=== PATIENT | male | born 1945 | race Caucasian/White ===

== ENCOUNTER 2023-10-18 15:46 | Inpatient (IN) | payer MEDICARE, OTHER, SELFPAY ==
[2023-10-18] VITALS (13 sets, daily range): BP systolic 20–143; BP diastolic 51–76; BMI 32.9
--- NOTE | 2023-10-18 11:41 | ED.GENMED ---
History of Present Illness
General
Chief Complaint: Abdominal Pain
Time Seen by Provider: 10/18/23 11:03
Travel History
Have you had any contact with someone who has COVID-19?: No
Do you have any symptoms of coronavirus? Fever > 100 degrees, chills, cough, shortness of breath, sore throat, loss of taste or smell, muscle aches, or headache?: No
History of Present Illness
History of Present Illness:
78-year-old male with history of CML and afj-dzawpzt-vaogikecp diabetes presents to the emergency department for evaluation of right lower quadrant pain developing last night and worsening today. Did have a fever of 100.3 at home according to his
. He reports pain is quite minimal while at rest. Pain does not radiate to the back, states it is not similar to past kidney stones. Denies any nausea or vomiting. No prior abdominal surgeries
Past History
Past History
ED Past Medical History: NIDDM
ED Past Surgical History: None
Social History
Tobacco: Non-smoker
Alcohol: Occasional
Drug: None
Personal:
Living: with family
Review of Systems
Review of Systems
Allergies reviewed?: Yes
All Other Systems: ROS reviewed and negative except as documented in HPI and ROS
Phy Exam
Physical Exam
Physical Exam:
GEN: Well appearing, NAD, WDWN
HEENT: Oral mucosa moist, no scleral icterus
Cardiac: Regular rate
Lung: No respiratory distress, no tachypnea
Abdomen: Obesity limits exam however patient with remarkable tenderness to the right lower quadrant, abdomen is grossly soft and benign otherwise, no peritoneal signs
MSK: No gross deformity or injuries
Skin: Good color, no pallor or jaundice, no rashes
Neuro: AO x3, moves all extremities freely
Psych: Calm, cooperative
Course
Orders/Labs/Results
Orders:
Orders
10/18/23 11:20
CT Abd/Pel (IV only)-DH only Urgent
Comment:
Reason For Exam: RLQ pain
10/18/23 11:52
Complete Blood Count/With Diff Urgent
Comprehensive Metabolic Panel Urgent
Urinalysis Reflex To Culture Urgent
Date Specimen was Collected: 10/18/23
Time Specimen was Collected: 11:40
Urine Microscopic Reflex Cult Urgent
10/18/23 13:58
Piperacillin/Tazo 3.375 Gram [Zosyn] 3.375 gram in 50 ml IV NOW
10/18/23 14:01
0.9% Sodium Chloride 1000 ml [Nss] 1,000 ml IV BOLUS
10/18/23 15:36
Admit/Transfer Patient As Directed
Co-Sign Provider:
Level of Care: Inpatient admission
Assign to:: Medical/Surgical
Physician / Group: stephani lopez
Diagnosis: appendiciis
Reason for Hospitalization: appendicitis
Expected length of stay greater than two midnights?: Yes
ELOS- Estimated Length of Stay in days: 3
I certify the patient meets the requirements for IP care: Yes
10/18/23 15:38
Code Status As Directed
Resuscitation Status: Full Code
Abnormal Lab Results
10/18/23
11:52
WBC 3.5 L 10^3/uL
(4.8-10.8)
RBC 4.34 L 10^6/uL
(4.70-6.10)
Hgb 12.7 L g/dL
(13.0-18.0)
Hct 36.9 L %
(39.0-52.0)
RDW 17.1 H %
(11.5-14.5)
Plt Count 102 L 10^3/uL
(130-400)
Absolute Lymphs (auto) 0.3 L 10^3/uL
(1.2-3.4)
Neutrophils % 86.4 H %
(42.2-75.2)
Lymphocytes % 7.1 L %
(20.5-51.1)
Sodium 133 L mmol/L
(135-145)
Glucose 287 H mg/dl
(70-99)
Total Bilirubin 1.8 H mg/dl
(0.2-1.3)
Urine Ketones 2+ A
(Negative)
Ur Occult Blood Reflex 1+ A
(Negative)
Urine RBC 3-6 A /HPF
(0-2)
Urine Bacteria (Reflex) Few A
(Negative)
Urine Glucose 3+ A
(Negative)
10/18/23 11:52
10/18/23 11:52
Vital Signs
Initial and Last Documented VS:
Initial Vital Signs
Temp Pulse Resp BP Pulse Ox
99.7 F 94 16 137/76 96
10/18/23 10:32 10/18/23 10:32 10/18/23 10:32 10/18/23 10:32 10/18/23 10:32
Last Documented Vital Signs
Temp Pulse Resp BP Pulse Ox
100.9 F H 85 18 119/56 95
10/18/23 12:06 10/18/23 14:11 10/18/23 14:11 10/18/23 15:00 10/18/23 15:15
MDM/Problems Addressed
MDM/Problems Addressed:
Imaging reveals appendicitis, general surgery consulted, requesting hospitalist admission due to underlying medical conditions. Will be taken for operative intervention today
*Critical Care Note
Total Time (30-74mins, 75-104mins- exclusive of procedures): 30 minutes
comment:
Critical care time: 30 minutes
Critical care time was exclusive of: Separately billable procedures, treating other patients, and teaching time
Critical care was necessary to treat or prevent imminent or life-threatening deterioration of the following conditions: Acute appendicitis requiring urgent operative intervention
Critical care time spent personally by me on the following activities:
[x] Review of old charts
[x] Obtaining history from patient or surrogate
[x] Ordering and review of the laboratory studies
[x] Ordering and review of radiographic studies
[x] Ordering and performing treatments and interventions
[x] Patient patient's response to treatment
[x] Development of treatment plan with patient or surrogate
ED Attending Note
-
Portions of this chart may have been created with voice recognition software.� Occasional wrong word or��sound alike� substitutions may have occurred due to the inherent limitations of voice recognition software.
Discharge Plan
Departure
Patient Disposition: Admit
Date of Disposition: 10/18/23
Time of Disposition: 14:08
Presentation/result/management discussed w/ accepting MD/DO: Hospitalist
Discharge Problem:
Acute appendicitis
Interventions
Interventions:
*Risk Screen - Suicide Last Done: 10/18/23 10:30
*General Assessment Last Done: 10/18/23 10:30
*Neglect/Abuse Screening Last Done: 10/18/23 10:30
ED- Fall Risk Assessment Last Done: 10/18/23 12:06
ED-Qzewqt-Nttxzsfhvg Assessment Last Done: 10/18/23 12:06
[2023-10-18 12:06] LABS: Urine Albumin Trace (Neg - Trace); Urine Bilirubin Negative (Negative); Urine Character Clear (Clear); Urine Color Yellow; Urine Glucose 3+ (Negative); Urine Ketone 2+ (Negative); Urine Leukocyte Negative (Negative); Urine Nitrite Negative (Negative); Urine Occult Blood 1+ (Negative); Urine Urobilinogen Negative (Neg - 1+)
[2023-10-18 12:07] LABS: % Basophils 0.8 % (0-2); % Immature Granulocytes 0.3 % (0-0.5); % Lymphocytes 7.1 % (20.5-51.1); % Monocytes 5.4 % (1.7-9.3); % Neutrophils 86.4 % (42.2-75.2); Absolute Lymphocytes 0.3 10^3/uL (1.2-3.4); Absolute Monocytes 0.2 10^3/uL (0.1-0.6); Absolute Neutrophils 3.1 10^3/uL (1.4-6.5); Hematocrit 36.9 % (39.0-52.0); Hemoglobin 12.7 g/dL (13.0-18.0); Mean Corp Hgb Conc. 34.4 g/dL (33.0-37.0); Mean Corpuscular Hgb 29.3 pg (27.0-31.0); Mean Platelet Volume 9.9 fL (7.4-10.4); Nucleated Red Blood Cells % 0 % (-); Platelet Count 102 10^3/uL (130-400); Red Blood Cell Count 4.34 10^6/uL (4.70-6.10); Red Cell Dist. Width 17.1 % (11.5-14.5); White Blood Cell Count 3.5 10^3/uL (4.8-10.8)
[2023-10-18 12:19] LABS: ALT (SGPT) 33 U/L (0-50); AST (SGOT) 31 U/L (17-59); Albumin 4.2 g/dl (3.5-5.0); Alkaline Phosphatase 84 U/L (38-126); Blood Urea Nitrogen 20 mg/dl (9-20); Calcium 9.1 mg/dl (8.4-10.2); Carbon Dioxide 24 mmol/L (22-30); Chloride 101 mmol/L (98-107); Estimated Creatinine Clearance 65 ml/min; Glucose 287 mg/dl (70-99); Potassium 4.6 mmol/L (3.5-5.1); Sodium 133 mmol/L (135-145); Total Bilirubin 1.8 mg/dl (0.2-1.3); Total Protein 6.7 g/dl (6.3-8.2); eGFR > 60.00
[2023-10-18 12:20] LABS: Urine Bacteria Few (Negative); Urine Mucus Few; Urine White Cell 0-2 /HPF (0-5)
[2023-10-18] MEDS: ZOSYN 50 IV ×2 (14:03→20:15)
[2023-10-18] MEDS: NSS 1000 IV ×2 (14:04→19:03)
--- NOTE | 2023-10-18 15:46 | HPS.HSE ---
Family Physician
-
Family Physician: Lucia Baptiste
Chief Complaint
-
abd pain
History of Present Illness
78 y/o M hx of CML, DM presents to ER with RLQ pain. Pain began yesterday and initially was RLQ with no radiation, 7/10, sharp pain. Associated symptoms include belching, dry heaves with nausea but no vomiting. Patient felt feverish, no chills. No
CP or SOB. Patient thought this was related to renal stones and took a Percocet at 1AM. He was able to sleep but woke up this morning with general malaise. He called PCP who referred him to ER.
In ER, found to have acute appendicitis on imaging and admitted for OR today. Zosyn and IVF were given.
Medical History
Past Medical History
Past Medical History: Reports Other (atypical CML, DM, MICKEY on CPAP, hx of renal stones)
Past Surgical History: Reports Urological (vasectomy, hx of lithotripsy)
Social History
Tobacco: Non-smoker
Alcohol: Occasional
Drug: None
Personal:
Living: With Family
Employment: Employed
Family History
Family History: Not pertinent
Allergies / Home Medications
Allergies reflects when Allergies were last updated in [facility].
Home Medications with original date entered in [facility]
Allergy/Medication List:
Allergies
Allergy/AdvReac Type Severity Reaction Status Date / Time
Sshxntn-NUF-FhQ Reductase Allergy Unknown Verified 12/25/22 09:01
Inhibitor
[Qbrpaka-Qng-Ifl Reductase
Inhibitor]
Home Medications
metformin 1,000 mg tablet,extended release 24hr (osmotic) 1,000 mg PO BID 03/27/17
gilteritinib 40 mg tablet 120 mg PO QPM 12/22/22
glimepiride 2 mg tablet 1 mg PO DAILY 12/22/22
magnesium 250 mg tablet 500 mg PO HS 12/22/22
potassium citrate 10 mEq (1,080 mg) tablet,extended release 10 meq PO BID 10/18/23
Review of Systems
-
A 12 point ROS was completed and negative except as noted: Yes
Physical Exam
Vital Signs
Vital Signs
Temp Pulse Resp BP Pulse Ox
100.9 F H 85 18 119/56 94
10/18/23 12:06 10/18/23 14:11 10/18/23 14:11 10/18/23 15:00 10/18/23 15:00
Physical Exam
General: Well Developed, Well Nourished, Pain and Obese
HEENT: NormoCephalic and Anicteric
Respiratory: Clear; No Wheezes or Rales
Cardiac: S1/S2 and Regular Rhythm
GI: Tender (RLQ) and Distended (mildly)
Musculoskeletal: No Clubbing
Neuro: AO x 3
Hematologic/Lymphatic: No Lymphadenopathy
Psych: Calm
Laboratory Results
-
10/18/23 11:52
10/18/23 11:52
Laboratory Results
Total Bilirubin 1.8 mg/dl (0.2-1.3) H 10/18/23 11:52
AST 31 U/L (17-59) 10/18/23 11:52
ALT 33 U/L (0-50) 10/18/23 11:52
Alkaline Phosphatase 84 U/L (38-126) 10/18/23 11:52
Data Reviewed
-
CT Scan: Report Reviewed by me and Discussed with Patient
Lab Data: Labs Reviewed by me and Discussed with Patient
Impression/Plan
-
Assessment:
Early Sepsis POA (tachy, leukopenia, fever, appendicitis)
Acute appendicitis
- CT did not show abscess or free air
- IVF
- IV Zosyn
- GS consulted; OR today
Atypical CML
P. Vera
- follows with [facility]
- on Gilteritinib - hold at this time
- also on Vidaza outpatient
Type 2 DM
- hold PO agents Glimepiride and Metformin
- SSI
- A1c: pending
1.3 cm L adrenal adenoma
- OP F/u
MICKEY
- bring in home CPAP
obesity due to excess calories
DVT ppx: SCDs
Code: Full
--- NOTE | 2023-10-18 16:32 | CON.GS ---
Consultation
-
Date/Time Consultation Requested: 10/18/2023 3:00 PM
Date/Time Consultation Performed: 10/18/2023 3:30 PM
Requesting Provider: Emergency department
Performing Provider: Dr. Esquivel
Reason for Consultation: Acute appendicitis
Medical History
-
Chief Complaint: Right lower quadrant abdominal pain
History of Present Illness:
This is an 78-year-old male with a history of CML, diabetes who presents to the emergency department with 1 day of right lower quadrant pain. The patient endorses fever and chills but denies, Chest Pain, Shortness Of Breath, Nausea, Vomiting,
changes in urinary and bowel habits, unintentional weight loss, jaundice, icterus, acolic stools.
Past Medical History
Past Medical History: Reviewed & Noncontributory
Past Surgical History: None
Social History
Tobacco: Non-Smoker
Alcohol: None
Drug: None
Personal:
Family History
Family History: Reviewed & Not Pertinent
Allergies / Home Medications
Allergy/AdvReac Type Severity Reaction Status Date / Time
Imvuydg-JSQ-CcR Reductase Allergy Unknown Verified 12/25/22 09:01
Inhibitor
[Kmpbtac-Qsp-Eyk Reductase
Inhibitor]
�Medication �Instructions �Recorded �Confirmed �Type
metformin 1,000 mg tablet,extended 1,000 mg PO BID 03/27/17 10/18/23 History
release 24hr (osmotic)
gilteritinib 40 mg tablet 120 mg PO QPM 12/22/22 10/18/23 History
glimepiride 2 mg tablet 1 mg PO DAILY 12/22/22 10/18/23 History
magnesium 250 mg tablet 500 mg PO HS 12/22/22 10/18/23 History
potassium citrate 10 mEq (1,080 10 meq PO BID 10/18/23 10/18/23 History
mg) tablet,extended release
Review of Systems
-
All other systems: Negative unless noted
A 10 point review of systems was completed, and was negative except as per HPI.
Physical Exam
Vital Signs
Temp Pulse Resp BP Pulse Ox
100.9 F H 85 18 119/56 95
10/18/23 12:06 10/18/23 14:11 10/18/23 14:11 10/18/23 15:00 10/18/23 15:15
10/17/23 10/18/23 10/19/23
06:59 06:59 06:59
Actual Weight 103.9 kg
Body Mass Index (BMI) 32.9
Lab Results
10/18/23 11:52
10/18/23 11:52
WBC 3.5 10^3/uL (4.8-10.8) L 10/18/23 11:52
Hgb 12.7 g/dL (13.0-18.0) L 10/18/23 11:52
Hct 36.9 % (39.0-52.0) L 10/18/23 11:52
Plt Count 102 10^3/uL (130-400) L 10/18/23 11:52
Abs Immat Gran (auto) 0.0 10^3/uL (0-0.05) 10/18/23 11:52
Neutrophils % 86.4 % (42.2-75.2) H 10/18/23 11:52
Physical Exam
General: Well Developed
HEENT: Normocephalic
Respiratory: Clear and Non Labored Respirations
GI: Soft, Non Distended, Tender (Focally tender to palpation in the right lower quadrant.) and Obese
Data Reviewed
-
CT Scan: Image Personally Visualized and interpreted, Report Reviewed by me, Discussed with Physician and Discussed with Patient
Labs: Labs Reviewed by me and Discussed with Physician
Total Time Spent with Patient (in minutes): 60
Assessment / Plan
-
This is an 78-year-old male with history of CML, diabetes who presents with 1 day history of right lower quadrant pain. Exam, lab work, imaging all consistent with acute appendicitis and adjacent free fluid containing for at least localized
perforation.
Will plan for a laparoscopic appendectomy in the OR today.
N.p.o., IV fluids, IV Zosyn.
Admit hospitalist given multiple comorbidities, anticipate discharge home tomorrow pending clinical course.
--- NOTE | 2023-10-18 16:35 | W.SUR.PREOP ---
Pre-Operative Surgical Note
-
I have examined this patient prior to the performance of the scheduled procedure.
The patient's condition is unchanged from the time of the current History and
Physical and the patient is able to undergo the scheduled procedure.
--- NOTE | 2023-10-18 18:10 | W.IMMPOSTOP ---
Surgical Immed Post Op Note
-
Primary Surgeon: Aaron Esquivel MD
Assisting Surgeon: None
Pre-op Diagnosis: Acute appendicitis
Post-op Diagnosis: Same
Procedure Performed: Laparoscopic appendectomy
Anesthesia Type: General
Specimen / Cultures:
1. Right lower quadrant fluid for wound culture aerobic and anaerobic
2. Appendix
Estimated Blood Loss: 11 cc
Complications: None
Operative Findings: Small bowel plastered to the anterior abdominal wall in the right lower quadrant which was lysed sharply. Perforated retrocecal appendix with localized abscess - cultured. Appendix appeared perforated at the base of the cecum,
though unable to clearly identify tissues due to significant inflammation. The terminal ileum was densely adherent in this area. Appendiceal base sutured closed with 2-0 PDS, and covered with Omentum. A 19 Portuguese round Rob was placed in the
right paracolic gutter.
POST OP PLAN:
Imaging: None
Labs: Routine AM
Diet: Okay for clears, Anticipate ileus
Analgesia: Tylenol 650mg q6 Yelena, Ciara 5mg q6 PRN, Dilaudid 0.5mg q2h PRN
Neuro/vascular checks: q4h
AC/AP: Hold Therapeutic AC, Ok for DVT PPx
Activity: Ad Alicia
Wound/Incisions/Drains: Routine
Abx: Continue antibiotics x 4 days.
Dispo: RNF
[2023-10-18 18:25] LABS: Glucose - Point of Care 232 mg/dl (70-99)
[2023-10-18] MEDS: NOVOLOG vial 100 UNITS SC (18:27)
--- NOTE | 2023-10-18 19:44 | SUR.PHASEI ---
patient post op in pacu after appy - awake, alert and oriented, denies pain, vss, Glucose treated as ordered. on transfer to room small amount of bloody ooze around inocente drain in skin fold. - Nancy called with room number.
[2023-10-18] MEDS: NOVOLOG FLEXPEN-LOW RESISTANCE SC (20:05)
[2023-10-18 21:25] LABS: Glucose - Point of Care 272 mg/dl (70-99)
--- NOTE | 2023-10-18 22:25 | PTCARENOTE ---
1920 Pt admitted to unit, vs stable, [address] via NC, IVF infusing via Left F/A. Pt's mid pubic J-P drained 45cc sanguinous fluid, pt denies need for pain medication, pain is 3 abd site and tolerable per pt. Pt oriented to unit, diet clears,
tolerated 120cc ice water, denies n/v or abd discomfort.
[2023-10-18 22:40] LABS: Glucose - Point of Care 290 mg/dl (70-99)
--- NOTE | 2023-10-18 23:06 | PTCARENOTE ---
Pt 02 drops while sleeping (83), states ''I have sleep apnea but I don't always use my CPAP'', HOB elevated as pt sleeps flat at home, 02 applied, pt refusing to use CPAP Pt educated at length verbalizes understanding however continues to decline
use of CPAP. HOB elevated, [address] pulse ox 98%
--- NOTE | 2023-10-19 00:45 | PTCARENOTE ---
pt's noted with a RCW SQ unaccessed port .
[2023-10-19 01:28] VITALS: BMI 33.2
[2023-10-19] MEDS: ZOSYN 50 IV ×4 (02:11→19:54)
[2023-10-19 03:40] VITALS: BP 120/56
[2023-10-19 05:45] LABS: Glucose - Point of Care 266 mg/dl (70-99)
[2023-10-19 06:19] LABS: Hematocrit 38.3 % (39.0-52.0); Hemoglobin 12.3 g/dL (13.0-18.0); Mean Corp Hgb Conc. 32.1 g/dL (33.0-37.0); Mean Corpuscular Hgb 28.5 pg (27.0-31.0); Mean Corpuscular Volume 88.9 fL (80.0-94.0); Mean Platelet Volume 10.4 fL (7.4-10.4); Platelet Count 100 10^3/uL (130-400); Red Blood Cell Count 4.31 10^6/uL (4.70-6.10); Red Cell Dist. Width 17.1 % (11.5-14.5); White Blood Cell Count 4.1 10^3/uL (4.8-10.8)
[2023-10-19 06:42] LABS: Blood Urea Nitrogen 22 mg/dl (9-20); Calcium 8.5 mg/dl (8.4-10.2); Carbon Dioxide 27 mmol/L (22-30); Chloride 100 mmol/L (98-107); Estimated Creatinine Clearance 71 ml/min; Glucose 272 mg/dl (70-99); Potassium 4.4 mmol/L (3.5-5.1); Sodium 137 mmol/L (135-145); eGFR > 60.00
[2023-10-19] MEDS: NSS 1000 IV ×2 (07:14→20:01)
[2023-10-19 07:37] VITALS: BP 123/56
[2023-10-19 08:19] LABS: Glycohemoglobin (HgbA1c) 8.2 % (4.0-5.6)
[2023-10-19] MEDS: NOVOLOG FLEXPEN-LOW RESISTANCE 3 UNITS SC ×2 (10:20→12:44)
--- NOTE | 2023-10-19 10:57 | W.PN.GS2 ---
Addendum entered and electronically signed by BETTE Antunez 10/20/23 12:35:
Correction to below: patient is POD #1 lap appendectomy not chase
Addendum entered and electronically signed by Fadi Romero MD 10/19/23 12:34:
I saw and examined the patient.
The Automotive Light Mechanic's note was reviewed and I agree with the note.
Comment: Improving. Exam approp, drain ss. Adv diet, cont IV abx
Original Note:
Today's Communication / Plan
-
Advance diet
Assessment / Plan
-
This is an 78 yo male with h/o DM and CML (on active treatment) who presented with acute perforated appendicitis and is now POD #1 lap chase
Febrile preoperatively with no fevers since, VSS.
Passing flatus, no n/v
Pancytopenia present preop, stable counts post op
--C/W SHAQUILLE drain
--C/W abx x4 days post op, OR cultures sent
--Tolerated clears overnight, will advance to ADA diet and follow closely for tolerance
--Analgesics prn. Added PO Tramadol with diet advancement.
--Decrease IVF to 50ml/hr, will d/c once tolerating PO
--OOB/Ambulate
--SCD's for VTE ppx
Subjective Data
-
Date of Service: October 19, 2023
Patient seen and examined at bedside with Dr. Romero. Patient denies n/v. Passing a lot of flatus but no BM as of yet. Tried jello and water and tolerated well. Denies significant pain.
Objective Data
-
Intake and Output
10/18/23 10/19/23 10/20/23
06:59 06:59 06:59
Intake Total 1840 / 1840 370 / 370
Output Total 950 / 950 420 / 420
Balance 890 / 890 -50 / -50
Intake:
Oral fluids 660 / 660
IV fluids (Total) 1080 / 1080 320 / 320
normosol 200 / 200
IV piggybacks 100 / 100 50 / 50
Output:
Drain Output (Total) 125 / 125 20 / 20
Middle Abdomen [place] 125 / 125 20 / 20
Urine, Voided 825 / 825 400 / 400
Other:
How many times incontinent 1
Vital Signs
Temp Pulse Resp BP Pulse Ox
97.8 F 55 19 123/56 100
10/19/23 07:37 10/19/23 07:37 10/19/23 07:37 10/19/23 07:37 10/19/23 07:37
Lab Results
10/19/23 05:43
10/19/23 05:43
Calcium 8.5 mg/dl (8.4-10.2) 10/19/23 05:43
Total Bilirubin 1.8 mg/dl (0.2-1.3) H 10/18/23 11:52
AST 31 U/L (17-59) 10/18/23 11:52
ALT 33 U/L (0-50) 10/18/23 11:52
Alkaline Phosphatase 84 U/L (38-126) 10/18/23 11:52
Total Protein 6.7 g/dl (6.3-8.2) 10/18/23 11:52
Albumin 4.2 g/dl (3.5-5.0) 10/18/23 11:52
Physical Exam
-
NAD
ABD soft, mild distention, obese, NT, SHAQUILLE with SSF
Incisions well approximated with intact glue
[2023-10-19 11:39] VITALS: BP 118/58
[2023-10-19 12:10] LABS: Glucose - Point of Care 254 mg/dl (70-99)
[2023-10-19 15:27] VITALS: BP 117/66
--- NOTE | 2023-10-19 15:46 | CM ---
Initial assessment completed with patient who lives with his in a one story home w no basement, 1 step to enter. 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 No DME or in-home
services. No psychiatric hospitalizations. [facility]acy is [facility] in [place] and PCP is Dr. Lucia Baptiste. ANTICIPATE HOME WITH NO NEEDS.
[2023-10-19 16:50] LABS: Glucose - Point of Care 195 mg/dl (70-99)
--- NOTE | 2023-10-19 17:13 | W.PN.HOSP.TC ---
Addendum entered and electronically signed by Cecy Morrison MD 10/19/23 17:22:
correction: Gilteritinib - do not resume until cleared by GS and reviewed by OP Onc
Original Note:
Today's Communication/Plan
-
continue IV Abx
resume home meds
possible DC in AM after PT
Assessment / Plan
Assessment / Plan
Assessment:
Early Sepsis POA (tachy, leukopenia, fever, appendicitis)
Acute appendicitis
- s/p lap chase 10/17
- continue IV Zosyn, day 08/27
- regular diet, assess tolerance
- prn pain control
Atypical CML
P. Vera
- follows with [facility]
- on Gilteritinib - can resume tonight
- also on Vidaza outpatient
Type 2 DM
- resume PO agents Glimepiride and Metformin
- SSI
- A1c: 8.2%
1.3 cm L adrenal adenoma
- OP F/u
MICKEY
- bring in home CPAP
obesity due to excess calories
DVT ppx: SCDs
Code: Full
Anticipated Discharge: Within 24 hours
Subjective/Interval History
-
Date of Service: October 19, 2023
no n/v, + flatus, no BM
tolerating clears
Objective Data
-
Labs:
Laboratory Results
10/19/23
05:43
WBC 4.1 L
Hgb 12.3 L
Hct 38.3 L
Plt Count 100 L
Sodium 137
Potassium 4.4
Chloride 100
Carbon Dioxide 27
BUN 22 H
Creatinine 1.0
Glucose 272 H
Calcium 8.5
Vital Signs:
Vital Signs
Temp Pulse Resp BP Pulse Ox
98.2 F 60 19 117/66 98
10/19/23 15:27 10/19/23 15:27 10/19/23 15:27 10/19/23 15:27 10/19/23 15:27
I&O
10/18/23 10/19/23 10/20/23
06:59 06:59 06:59
Intake Total 1840 / 1840 370 / 370
Output Total 950 / 950 420 / 420
Balance 890 / 890 -50 / -50
Physical Exam
-
General: Well Developed, Well Nourished and Obese
HEENT: Normocephalic and Atraumatic
Respiratory: Clear to Auscultation; Negative Wheezes or Rales
Cardiac: Regular Rhythm and S1/S2
GI: Distended (mild)
Genito-urinary: No Costovertebral Tender
Neuro: AO x 3
Psych: Calm
Data Reviewed
-
Total Time Spent with Patient (in minutes): 45
Labs: Labs Reviewed by me
[2023-10-19] MEDS: GLUCOPHAGE XR EXTENDED RELEASE 1000 MG PO (17:48)
[2023-10-19] MEDS: NOVOLOG FLEXPEN-LOW RESISTANCE 1 UNITS SC (17:49)
[2023-10-19 19:10] VITALS: BP 123/52
[2023-10-19 21:36] LABS: Glucose - Point of Care 199 mg/dl (70-99)
[2023-10-19 23:35] VITALS: BP 128/64
[2023-10-20] MEDS: ZOSYN 50 IV ×3 (02:26→12:53)
[2023-10-20 05:33] LABS: Hematocrit 32.8 % (39.0-52.0); Mean Corp Hgb Conc. 33.5 g/dL (33.0-37.0); Mean Corpuscular Hgb 28.8 pg (27.0-31.0); Mean Corpuscular Volume 85.9 fL (80.0-94.0); Mean Platelet Volume 10.7 fL (7.4-10.4); Platelet Count 102 10^3/uL (130-400); Red Blood Cell Count 3.82 10^6/uL (4.70-6.10); Red Cell Dist. Width 17.2 % (11.5-14.5); White Blood Cell Count 3.3 10^3/uL (4.8-10.8)
[2023-10-20 05:48] LABS: Blood Urea Nitrogen 24 mg/dl (9-20); Calcium 8.1 mg/dl (8.4-10.2); Carbon Dioxide 25 mmol/L (22-30); Chloride 105 mmol/L (98-107); Estimated Creatinine Clearance 71 ml/min; Glucose 185 mg/dl (70-99); Potassium 3.8 mmol/L (3.5-5.1); Sodium 134 mmol/L (135-145); eGFR > 60.00
[2023-10-20 07:05] VITALS: BP 142/66
[2023-10-20 07:13] LABS: Glucose - Point of Care 174 mg/dl (70-99)
[2023-10-20] MEDS: GLUCOPHAGE XR EXTENDED RELEASE 1000 MG PO (09:43)
[2023-10-20] MEDS: NOVOLOG FLEXPEN-LOW RESISTANCE 1 UNITS SC ×2 (09:44→11:30)
[2023-10-20] MEDS: AMARYL 1 MG PO (09:44)
--- NOTE | 2023-10-20 10:39 | CM ---
Addendum entered by Merry Patino 10/20/23 13:14:
Plan: Discharge to home with home health services from [facility]; spoke with via phone; she is aware of discharge and will provide transportation home
Signed IMM on the chart from 10/18/2023
Original Note:
Case Management Consult completed; spoke via phone with patient's to discuss discharge plan and Attending's order for VN to follow up at home to check on abdominal drain. did not have an agency preference; list provided verbally; referral
sent via [facility] to [facility].
Plan: discharge to home with home health services from [facility] when medically stable
[2023-10-20 11:42] LABS: Glucose - Point of Care 193 mg/dl (70-99)
--- NOTE | 2023-10-20 12:30 | W.PN.GS2 ---
Addendum entered and electronically signed by Fadi Romero MD 10/20/23 14:12:
I saw and examined the patient.
The Recovery Advocate's note was reviewed and I agree with the note.
Comment: No complaints. AFVSS. exam approp, drain ss. Drain removed. OK for DC with 4 additional days PO abx
Original Note:
Today's Communication / Plan
-
dispo planning
Assessment / Plan
-
This is an 78 yo male with h/o DM and CML (on active treatment) who presented with acute perforated appendicitis and is now POD #2 lap appi
AFVSS
Tolerating diet
Pancytopenia present preop, stable counts post op
--C/W SHAQUILLE drain upon discharge. CM consulted to arrange VNA
--C/W abx x4 days post op, OR cultures sent with prelin GNR
--Tolerating diabetic diet
--Analgesics prn
--OOB/Ambulate
--SCD's for VTE ppx
Ok for d/c from surgical standpoint on po abx with drain in place
Subjective Data
-
Date of Service: October 20, 2023
Patient seen and examined at bedside with Dr. Romero. Denies n/v. Tolerating diet. Passing flatus. Minimal to no discomfort to abdomen.
Objective Data
-
Intake and Output
10/19/23 10/20/23 10/21/23
06:59 06:59 06:59
Intake Total 1840 / 1840 2540 / 2540 200 / 200
Output Total 950 / 950 1873 / 1873 20 / 20
Balance 890 / 890 667 / 667 180 / 180
Intake:
Oral fluids 660 / 660 1200 / 1200
IV fluids (Total) 1080 / 1080 1190 / 1190 200 / 200
normosol 200 / 200
IV piggybacks 100 / 100 150 / 150
Output:
Drain Output (Total) 125 / 125 73 / 73 20 / 20
Middle Abdomen [place] 125 / 125 73 / 73 20 20
Urine, Voided 825 / 825 1800 / 1800
Other:
Number of approximated MODERATE 1
amounts of urine
How many times incontinent 1
Vital Signs
Temp Pulse Resp BP Pulse Ox
97.9 F 64 18 142/66 98
10/20/23 07:05 10/20/23 07:05 10/20/23 07:05 10/20/23 07:05 10/20/23 07:05
Lab Results
10/20/23 05:07
10/20/23 05:07
Calcium 8.1 mg/dl (8.4-10.2) L 10/20/23 05:07
Total Bilirubin 1.8 mg/dl (0.2-1.3) H 10/18/23 11:52
AST 31 U/L (17-59) 10/18/23 11:52
ALT 33 U/L (0-50) 10/18/23 11:52
Alkaline Phosphatase 84 U/L (38-126) 10/18/23 11:52
Total Protein 6.7 g/dl (6.3-8.2) 10/18/23 11:52
Albumin 4.2 g/dl (3.5-5.0) 10/18/23 11:52
Physical Exam
-
NAD
ABD soft, ND, obese, NT, SHAQUILLE with SSF
Incisions well approximated with intact glue
--- NOTE | 2023-10-20 12:49 | W.PN.HOSP.TC ---
Addendum entered and electronically signed by Cecy Morrison MD 10/20/23 13:01:
Correction to below: patient is post appendectomy not chase
Original Note:
Today's Communication/Plan
-
dc to home with VN
Assessment / Plan
Assessment / Plan
Assessment:
Early Sepsis POA (tachy, leukopenia, fever, appendicitis)
Acute appendicitis
- s/p lap chase 10/17
- dc on Augmentin to complete 7 day course
- regular diet
- prn pain control
- OP F/u
Atypical CML
P. Vera
- follows with [facility]
- on Gilteritinib - can resume outpatient once cleared by GS and onc
- also on Vidaza outpatient
Type 2 DM
- resume PO agents Glimepiride and Metformin
- SSI
- A1c: 8.2%
1.3 cm L adrenal adenoma
- OP F/u
MICKEY
- bring in home CPAP
obesity due to excess calories
DVT ppx: SCDs
Code: Full
More than 30 minutes spent in discharge including
Final examination of the patient
Summarizing hospital stay
Instructions for continuing care to all relevant caregivers
Preparation of discharge records, prescriptions, and referral forms
Total time spent (in minutes): 42
Anticipated Discharge: Today
Subjective/Interval History
-
Date of Service: October 20, 2023
doing well no complaints
Objective Data
-
Labs:
Laboratory Results
10/20/23
05:07
WBC 3.3 L
Hgb 11.0 L
Hct 32.8 L
Plt Count 102 L
Sodium 134 L
Potassium 3.8
Chloride 105
Carbon Dioxide 25
BUN 24 H
Creatinine 1.0
Glucose 185 H
Calcium 8.1 L
Vital Signs:
Vital Signs
Temp Pulse Resp BP Pulse Ox
97.9 F 64 18 142/66 98
10/20/23 07:05 10/20/23 07:05 10/20/23 07:05 10/20/23 07:05 10/20/23 07:05
I&O
10/19/23 10/20/23 10/21/23
06:59 06:59 06:59
Intake Total 1840 / 1840 2540 / 2540 200 / 200
Output Total 950 / 950 1873 / 1873 20 / 20
Balance 890 / 890 667 / 667 180 / 180
Physical Exam
-
General: No Apparent Distress
HEENT: Normocephalic and Atraumatic
Respiratory: Negative Wheezes or Rales
Cardiac: Regular Rhythm and S1/S2
GI: Soft
Genito-urinary: No Costovertebral Tender
Musculoskeletal: No Edema
Neuro: AO x 3
Hematologic / Lymphatic: No Lymphadenopathy
Psych: Calm
Data Reviewed
-
Total Time Spent with Patient (in minutes): 42
Labs: Labs Reviewed by me
[2023-10-20 13:10] VITALS: BP 117/82
--- NOTE | 2023-10-21 07:55 | W.DS.TRANS ---
DC Summary - Pattern Clerk
-
Discharge Instructions:
Discharge Diagnosis/Procedures appendicitis s/p appendectomy 10/18/23
Diet Diabetic, Carb Controlled
Activity No strenuous activity
Bathing Restrictions OK to Shower
Instructions: [place] [facility]
Stand-Alone Forms:
Changes to Home Medications: No
Discharge Medications:
DC Medications w/original date entered in [employer]
metformin 1,000 mg tablet,extended release 24hr (osmotic) 1,000 mg PO BID Diabetes 03/27/17
gilteritinib 40 mg tablet 120 mg PO QPM Cancer 12/22/22
glimepiride 2 mg tablet 1 mg PO DAILY Diabetes 12/22/22
magnesium 250 mg tablet 500 mg PO HS Electrolyte Repletion 12/22/22
potassium citrate 10 mEq (1,080 mg) tablet,extended release 10 meq PO BID Electrolyte Repletion 10/18/23
acetaminophen 325 mg tablet 650 mg (2 x 325 mg) PO Q4HPRN PRN mild pain/SIMPSON/temp> 100.4F #30 tabs 10/20/23
amoxicillin 875 mg-potassium clavulanate 125 mg tablet 1 tab PO BID #10 tabs 10/20/23
Home Medication Changes
Pending Results: No
Total time spent discharging patient (in min): 42
--- NOTE | 2023-10-24 08:32 | OR.RPT ---
Operative Report
Operative Report
Patient Name: Edil Jarrell
: 1945
Date of Operation: 10/18/2023
Preoperative Diagnosis: Acute Appendicitis
Postoperative Diagnosis: Same
Procedure(s):
Laparoscopic Appendectomy
Surgeon(s):
Dr. Esquivel
Rivet Sticker(s):
None
Anesthesia: General
Estimated Blood Loss: 11 cc
Urine Output: None
Drains/Lines/Implants: None
Specimens:
1. Appendix
2. Right lower quadrant fluid for wound culture aerobic and anaerobic
HPI/Surgical Indications:
This is an 78-year-old diabetic male who presents with a 1 day history of abdominal pain. Exam, labs and imaging are consistent with acute perforated appendicitis. Risks/Benefits/Alternatives were discussed at length, and the patient agreed to
proceed with surgery.
Findings:
Operative Findings: Small bowel plastered to the anterior abdominal wall in the right lower quadrant which was lysed sharply. Perforated retrocecal appendix with localized abscess - cultured. Appendix appeared perforated at the base of the cecum,
though unable to clearly identify tissues due to significant inflammation. The terminal ileum was densely adherent in this area. Appendiceal base sutured closed with 2-0 PDS, and covered with Omentum. A 19 Serbian round Rob was placed in the
right paracolic gutter.
Procedure Description:
The patient was placed in the supine position, with the left arm tucked, and general anesthesia was induced. The abdomen was prepared and draped in a sterile fashion so as to expose the entire abdomen. A surgical time out was taken. Abdominal access
was obtained with a 5mm infra-umbilical Veress needle. After confirming no injury on entrance, two additional 5mm ports were placed in the suprapubic area just off midline and in the left lower quadrant. The patient was placed in Trendelenberg with
the right slightly up. There was a wall of small bowel matted up to the anterior abdominal wall in the right lower quadrant. This was carefully lysed using sharp and blunt dissection. We then gently had to peel back the right colon from the
lateral abdominal wall revealing perforated retrocecal appendix with localized abscess. The fluid here was cultured. Given the degree of inflammation it was difficult truly separate the tissues. The tip of the appendix was identified and traced
retrograde to a fairly dilated portion in the mid body followed by site of perforation just before disappearing into what was the presumed cecum, though it was impossible to tell whether there was additional appendix proximal to the perforation.
The terminal ileum was densely adherent in this area and it appeared that the IC valve was in very close proximity here as well making exposure somewhat difficult but also indicating that any further resection would likely involve an ileocecectomy.
The site of perforation was closed with a [id number] PDS suture with good approximation of the surrounding healthy tissue. The surgical field was gently irrigated and suctioned until clear. Hemostasis was assured. A tongue of omentum was
also brought into the area and placed over our repair. The appendix was placed in an Endo Catch bag and removed. 19 Serbian round Rob drain was introduced through the suprapubic 5 mm port and laid over the omentum and the right lower quadrant near
our repair. This was secured at the skin with a 2-0 nylon suture. The 5 mm umbilical port was then closed with a 0 PDS on Anthony Clements. Pneumoperitoneum was evacuated and the last 5 mm port was removed. The skin for all ports was closed with
interrupted monocryls and covered with dermabond. The patient was awoken from anesthesia in good condition and transported to the recovery area.
I was the attending physician and performed the procedure with no assistance. I was present for all portions of the case
Aaron Esquivel MD
== END 2023-10-20 14:46 | disposition home health service (06) | DRG 853 ==
LOC: 2 SOUTH 15:46
PROVIDERS: Physician Assistant; Registered Nurse; ADMITTING PHYSICIAN Internal Medicine; CONSULT PHYSICIAN Surgery; EMERGENCY PHYSICIAN Emergency Medicine; FAMILY PHYSICIAN Family Medicine
PROC: 0DTJ4ZZ Resection of Appendix, Percutaneous Endoscopic Approach (ICD-10-PCS; 2023-10-18)
DX: A41.9 Sepsis, unspecified organism (principal); K35.32 Acute appendicitis with perforation, localized peritonitis, and gangrene, without abscess; D61.818 Other pancytopenia; E11.9 Type 2 diabetes mellitus without complications; D35.02 Benign neoplasm of left adrenal gland; G47.33 Obstructive sleep apnea (adult) (pediatric); E66.09 Other obesity due to excess calories; Z68.33 Body mass index [BMI] 33.0-33.9, adult
CPT/HCPCS: 88304; 74177; 80048; 80053; 81003; 81015; 82962; 83036; 85025; 85027; 87070; 87075; 87076; 87077; 87185; 87186; 87205; 96361; 96365; 99291; Q9967

== ENCOUNTER 2024-05-17 18:55 | Inpatient (IN) | payer MEDICARE, OTHER, SELFPAY ==
[2024-05-17] VITALS (9 sets, daily range): BP systolic 105–151; BP diastolic 56–75; BMI 31.6; BMI 31.7
[2024-05-17] MEDS: ZOFRAN ODT (ORALLY DISINTEGRATING) 4 MG PO (15:31)
--- NOTE | 2024-05-17 15:36 | ED.GENMED ---
History of Present Illness
General
Chief Complaint: Fever
Source: patient
Exam Limitations: none
Time Seen by Provider: 05/17/24 14:35
Nursing documentation reviewed up to this point in time: agreed with
History of Present Illness
History of Present Illness:
78-year-old male [facility] patient Dr. Fairbanks patient, leukemia, presents with chills fatigue nausea spoke to PCP and oncologist recommended come to the ER for evaluation no shortness of breath no abdominal pain, symptoms are fairly severe
earlier today
Past History
Past History
ED Past Medical History: NIDDM
ED Past Surgical History: None
Social History
Tobacco: Non-smoker
Alcohol: Occasional
Drug: None
Personal:
Living: with family
Review of Systems
Review of Systems
All Other Systems: Not applicable
Constitutional: Reports fatigue and chills; Denies fever
Respiratory: Reports cough
ABD/GI: Reports nausea and vomiting; Denies abdominal pain
: Reports no symptoms
Musculoskeletal: Reports muscle stiffness
Neurological: Reports dizzy and weakness
Endocrine: Reports no symptoms
Phy Exam
Physical Exam
Physical Exam:
Physical Exam
General: 78-year-old male vomiting feels warm
Neck: Lips are moist
Heart: Regular
Lungs: Bibasilar crackle
Abdomen: Obese not
Neuro: alert and oriented. no focal neurological deficits
Skin: no rash
Psychiatric: well kept. interactive and cooperative
Extremities: no edema.
Sepsis
Sepsis Screening
Sepsis Assessment: Sepsis
Sepsis Screen
Sepsis Screen: Sepsis
Date: 05/17/24
Time: 17:53
Course
Orders/Labs/Results
Orders:
Orders
05/17/24 14:52
Electrocardiogram (*1) Urgent
Reason for Study: Other
Other Reason for Exam: sepsis
EKG- Treatment ONCE
CR Chest Portable - 1 View Urgent
Comment:
Reason For Exam: chills
Reason Study Needs to be Portable: Patient Unstable
05/17/24 15:21
COVID-19 Antigen Urgent
Source: Nasal Swab
Influenza A+B Rapid Molecular Urgent
MAT Source: Nasal Swab
Specimen Description:
05/17/24 15:26
0.9% Sodium Chloride 1000 ml [Nss] 1,000 ml IV BOLUS
Ondansetron Orally Disint [Zofran Odt (Orally Disintegrating)] 4 mg PO NOW STA
05/17/24 15:53
Complete Blood Count/With Diff Urgent
Comprehensive Metabolic Panel Urgent
Lactic Acid Q4H
Comment: CANCEL 2nd LACTIC ACID IF 1st LACTIC ACID IS LESS THAN 2
05/17/24 16:59
CT Abd/pelvis W Iv Cont Urgent
Comment:
Reason For Exam: cholangitis
05/17/24 17:23
Urinalysis Reflex To Culture Urgent
Date Specimen was Collected: 05/17/24
Time Specimen was Collected: 17:22
05/17/24 17:24
Blood Culture Urgent
MAT Source: Blood/Venous
Specimen Description:
05/17/24 17:35
Piperacillin/Tazo 3.375 Gram [Zosyn] 3.375 gram in 50 ml IV NOW
05/17/24 17:45
Blood Culture Urgent
MAT Source: Blood/Venous
Specimen Description:
Abnormal Lab Results
05/17/24 05/17/24
15:53 17:23
RBC 4.31 L 10^6/uL
(4.70-6.10)
Hgb 12.8 L g/dL
(13.0-18.0)
Hct 37.5 L %
(39.0-52.0)
RDW 17.2 H %
(11.5-14.5)
Abs Immat Gran (auto) 0.1 H 10^3/uL
(0-0.05)
Absolute Lymphs (auto) 0.3 L 10^3/uL
(1.2-3.4)
Absolute Monos (auto) 0.9 H 10^3/uL
(0.1-0.6)
Immature Gran % 1.0 H %
(0-0.5)
Lymphocytes % 5.4 L %
(20.5-51.1)
Monocytes % 17.7 H %
(1.7-9.3)
BUN 29 H mg/dl
(9-20)
Glucose 192 H mg/dl
(70-99)
Total Bilirubin 3.5 H mg/dl
(0.2-1.3)
AST 614 H* U/L
(17-59)
ALT 486 H U/L
(0-50)
Alkaline Phosphatase 285 H U/L
(38-126)
Urine Ketones 1+ A
(Negative)
Urine Bilirubin 1+ A
(Negative)
05/17/24 15:53
05/17/24 15:53
Vital Signs
Initial and Last Documented VS:
Initial Vital Signs
Temp Pulse Resp BP Pulse Ox
98.3 F 98 18 135/75 97
05/17/24 13:51 05/17/24 13:51 05/17/24 13:51 05/17/24 13:51 05/17/24 13:51
Last Documented Vital Signs
Temp Pulse Resp BP Pulse Ox
98.3 F 98 18 150/59 93
05/17/24 13:51 05/17/24 13:51 05/17/24 13:51 05/17/24 16:00 05/17/24 16:30
MDM/Problems Addressed
Differential Diagnosis Includes:
Bacteremia neutropenic sepsis pneumonia URI UTI port infection other
MDM/Problems Addressed:
Chills vomiting
Chronic conditions affecting care: DM and Cancer
Acute Exacerbation and/or Progression of Chronic Illness: DM and Cancer
*Radiology
Radiology exam reviewed: preliminary read by ED provider and radiology read reviewed
*Pulse Oximetry
Patient hypoxic: no
*EKG
Interpreted by ED Provider?: Yes
Interpretation: abnormal
Comparison EKG: no comparison EKG present
Heart Rate: 78
Rate: normal
Rhythm: sinus
*Milk Of Lime Slaker Interpretation
Rate: normal
Interpretation: normal
Heart Rate: 78
Rhythm: sinus
*Critical Care Note
Total Time (30-74mins, 75-104mins- exclusive of procedures): 30
Data Reviewed
Review of Other/Old Records Reveals: Labs
Update Note
Update Note:
Update white count noted not neutropenic chest x-ray noted flu and COVID noted urine is pending
530 update LFTs T. bili noted patient looks better after fluids, antibiotics and cultures have been ordered and started will likely require admission concern for cholangitis
ED Attending Note
-
Portions of this chart may have been created with voice recognition software.� Occasional wrong word or��sound alike� substitutions may have occurred due to the inherent limitations of voice recognition software.
Discharge Plan
Departure
Prescriptions:
No Action
metformin 1,000 MG tablet extended release 24hr
1,000 mg PO BID
glimepiride 2 mg Tablet
1 mg PO DAILY
magnesium 250 mg Tablet
500 mg PO HS
gilteritinib 40 mg Tablet
120 mg PO QPM
potassium citrate 10 mEq (1,080 mg) tablet extended release
10 meq PO BID
acetaminophen 325 mg Tablet
650 mg PO Q4HPRN PRN (Reason: mild pain/SIMPSON/temp> 100.4F) Qty: 30 0RF
amoxicillin-pot clavulanate 875-125 mg tablet
1 tab PO BID Qty: 10 0RF
Referrals:
Lucia Baptiste DO [Family Provider] -
Interventions
Interventions:
*Risk Screen - Suicide Last Done: 05/17/24 13:51
*General Assessment Last Done: 05/17/24 13:51
*Neglect/Abuse Screening Last Done: 05/17/24 13:51
ED- Fall Risk Assessment Last Done: 05/17/24 15:10
*ED COVID-19 Vaccine History Last Done: 05/17/24 15:10
ED- Neurological Assessment Last Done: 05/17/24 15:10
ED-Skin Assessment Last Done: 05/17/24 15:19
Discharge Date and Time
Print Language: ARMENIAN
[2024-05-17 15:53] LABS: COVID-19 Antigen Negative (Negative)
[2024-05-17 16:12] LABS: % Basophils 1.6 % (0-2); % Lymphocytes 5.4 % (20.5-51.1); % Monocytes 17.7 % (1.7-9.3); % Neutrophils 74.3 % (42.2-75.2); Absolute Basophils 0.1 10^3/uL (0-0.2); Absolute Immature Granulocytes 0.1 10^3/uL (0-0.05); Absolute Lymphocytes 0.3 10^3/uL (1.2-3.4); Absolute Monocytes 0.9 10^3/uL (0.1-0.6); Absolute Neutrophils 3.8 10^3/uL (1.4-6.5); Hematocrit 37.5 % (39.0-52.0); Hemoglobin 12.8 g/dL (13.0-18.0); Mean Corp Hgb Conc. 34.1 g/dL (33.0-37.0); Mean Corpuscular Hgb 29.7 pg (27.0-31.0); Mean Platelet Volume 10.3 fL (7.4-10.4); Nucleated Red Blood Cells % 0 % (-); Platelet Count 155 10^3/uL (130-400); Red Blood Cell Count 4.31 10^6/uL (4.70-6.10); Red Cell Dist. Width 17.2 % (11.5-14.5); White Blood Cell Count 5.1 10^3/uL (4.8-10.8)
[2024-05-17 16:13] LABS: Lactic Acid 1.5 mmol/L (0.7-2.0)
[2024-05-17] MEDS: NSS 1000 IV ×2 (16:42→22:09)
[2024-05-17 16:46] LABS: ALT (SGPT) 486 U/L (0-50); AST (SGOT) 614 U/L (17-59); Albumin 4.5 g/dl (3.5-5.0); Alkaline Phosphatase 285 U/L (38-126); Blood Urea Nitrogen 29 mg/dl (9-20); Calcium 9.3 mg/dl (8.4-10.2); Carbon Dioxide 24 mmol/L (22-30); Chloride 101 mmol/L (98-107); Estimated Creatinine Clearance 65 ml/min; Glucose 192 mg/dl (70-99); Potassium 4.4 mmol/L (3.5-5.1); Sodium 138 mmol/L (135-145); Total Bilirubin 3.5 mg/dl (0.2-1.3); Total Protein 6.7 g/dl (6.3-8.2); eGFR > 60.00
[2024-05-17 17:33] LABS: Urine Albumin Trace (Neg - Trace); Urine Bilirubin 1+ (Negative); Urine Character Clear (Clear); Urine Color Yellow; Urine Glucose Negative (Negative); Urine Ketone 1+ (Negative); Urine Leukocyte Negative (Negative); Urine Nitrite Negative (Negative); Urine Occult Blood Negative (Negative); Urine Urobilinogen Negative (Neg - 1+)
[2024-05-17] MEDS: ZOSYN 50 IV ×2 (18:08→23:04)
--- NOTE | 2024-05-17 18:21 | HPS.HSE ---
Family Physician
-
Family Physician: Lucia Baptiste
Chief Complaint
-
chills and nausea
History of Present Illness
HPI
78M HX NIDDM , Leukemia , known to [facility] - Dr. Fairbanks seen at ER with chills fatigue nausea
PCP and oncologist recommended come to the ER for evaluation
ROS:
no shortness of breath
no abdominal pain
Medical History
Past Medical History
Past Medical History: Reports Other (atypical CML, DM, MICKEY on CPAP, hx of renal stones)
Past Surgical History: Reports Urological (vasectomy, hx of lithotripsy)
Social History
Tobacco: Non-smoker
Alcohol: Occasional
Drug: None
Personal:
Living: With Family
Employment: Employed
Family History
Family History: Not pertinent
Allergies / Home Medications
Allergies reflects when Allergies were last updated in [employer].
Home Medications with original date entered in [employer]
Allergy/Medication List:
Allergies
Allergy/AdvReac Type Severity Reaction Status Date / Time
Errwogi-BYP-HrR Reductase Allergy Unknown Verified 12/25/22 09:01
Inhibitor
[Egjabib-Cfe-Ydp Reductase
Inhibitor]
Home Medications
metformin 1,000 mg tablet,extended release 24hr (osmotic) 1,000 mg PO BID 03/27/17
gilteritinib 40 mg tablet 120 mg PO QPM 12/22/22
glimepiride 2 mg tablet 1 mg PO DAILY 12/22/22
magnesium 250 mg tablet 500 mg PO HS 12/22/22
potassium citrate 10 mEq (1,080 mg) tablet,extended release 10 meq PO BID 10/18/23
Review of Systems
-
Constitutional: Reports See HPI and Chills
EENT: Reports No Symptoms
Respiratory: Reports No Symptoms
Cardiac: Reports No Symptoms
Abdomen/GI: Reports No Symptoms
: Reports No Symptoms
Musculoskeletal: Reports No Symptoms
Skin: Reports No Symptoms
Neurological: Reports No Symptoms
Endocrine: Reports No Symptoms
Hematologic/Lymphatic: Reports No Symptoms
Psych: Reports No Symptoms
Physical Exam
Vital Signs
Vital Signs
Temp Pulse Resp BP Pulse Ox
98.3 F 98 18 130/56 92
05/17/24 13:51 05/17/24 13:51 05/17/24 13:51 05/17/24 17:00 05/17/24 18:10
Physical Exam
General: Well Developed, Well Nourished and No Apparent Distress
HEENT: NormoCephalic, Moist mucous membranes and Atraumatic
Respiratory: Clear
Cardiac: S1/S2 and Regular Rhythm; No Murmur or Rub
GI: Soft, Non Tender, Non Distended and Normal Bowel Sounds; No Organomegaly
Rectal: Deferred by Provider
Musculoskeletal: No Clubbing, No Cyanosis and No Edema
Skin: No Rash
Neuro: Nonfocal/grossly intact
Laboratory Results
-
05/17/24 15:53
05/17/24 15:53
Laboratory Results
Lactic Acid Cancelled 05/17/24 19:00
Total Bilirubin 3.5 mg/dl (0.2-1.3) H 05/17/24 15:53
AST 614 U/L (17-59) H* 05/17/24 15:53
ALT 486 U/L (0-50) H 05/17/24 15:53
Alkaline Phosphatase 285 U/L (38-126) H 05/17/24 15:53
Data Reviewed
-
CT Scan: Other (pending report )
Lab Data: Labs Reviewed by me
Old Records: Reviewed
Impression/Plan
-
Data
Laboratory Tests
05/17/24
15:53
WBC 5.1
Hgb 12.8 L
BUN 29 H
Creatinine 1.1
eGFR > 60.00
Total Bilirubin 3.5 H
AST 614 H*
ALT 486 H
Alkaline Phosphatase 285 H
NEG Flu A & B
BCx sent
CXR: NAD
CT AP: pending report
EKG:
NORMAL SINUS RHYTHM
POSSIBLE LEFT ATRIAL ENLARGEMENT
BORDERLINE ECG
WHEN COMPARED WITH ECG OF 27-MAR-2017 03:14,
NO SIGNIFICANT CHANGE WAS FOUND
Last hospitalist admission:
DATE OF ADMISSION: 10/18/2023 - DATE OF DISCHARGE: 10/20/2023
DC Dxs: appendicitis s/p appendectomy 10/18/23
ASSESSMENT & PLAN
Significantly elevated transaminitis with chills fatigue nausea
Diff origins; Biliary sepsis ? acute cholangitis
HX s/p lap appendectomy 10/18/23
- f/u CT AP report
- f/u BCx
- Trend LFts
- Agree with empiric Zosyn
- Clear diet and IVF
- GI consult
Atypical CML HX
P. Vera HX
- follows with [facility]
- Held Gilteritinib - while evaluating for billiairy sepsis
T2DM
- Held Glimepiride and Metformin
- Low SSI
- Last A1c: 8.2% in september 2023
1.3 cm L adrenal adenoma
- OP F/u
MICKEY
- bring in home CPAP
Obesity due to excess calories
DVT ppx: SCDs
Code: Full
IP TLM
[2024-05-17 22:30] LABS: Glucose - Point of Care 194 mg/dl (70-99)
[2024-05-17] MEDS: MOTRIN 400 MG PO (22:39)
[2024-05-17 23:21] LABS: Lactic Acid 1.6 mmol/L (0.7-2.0)
--- NOTE | 2024-05-17 23:25 | PTCARENOTE ---
Received pt from ED, ambulated from stretcher to bed. AAOx3, no complaints of pain. Temp 101- see SEP. IVF as ordered.
[2024-05-18 03:46] VITALS: BP 115/54
[2024-05-18] MEDS: ZOSYN 50 IV ×3 (05:37→17:38)
[2024-05-18 07:39] LABS: ALT (SGPT) 438 U/L (0-50); AST (SGOT) 287 U/L (17-59); Albumin 3.7 g/dl (3.5-5.0); Alkaline Phosphatase 182 U/L (38-126); Blood Urea Nitrogen 29 mg/dl (9-20); Calcium 8.4 mg/dl (8.4-10.2); Carbon Dioxide 26 mmol/L (22-30); Chloride 102 mmol/L (98-107); Estimated Creatinine Clearance 54 ml/min; Glucose 112 mg/dl (70-99); Potassium 4.2 mmol/L (3.5-5.1); Sodium 141 mmol/L (135-145); Total Bilirubin 4.1 mg/dl (0.2-1.3); Total Protein 5.9 g/dl (6.3-8.2); eGFR 55.53
[2024-05-18 07:40] VITALS: BP 123/53
[2024-05-18 07:58] LABS: Creatine Phosphokinase 79 U/L (55-170); Direct Bilirubin 2.5 mg/dl (0.0-0.4)
[2024-05-18 08:03] LABS: Hematocrit 33.9 % (39.0-52.0); Hemoglobin 11.5 g/dL (13.0-18.0); Mean Corp Hgb Conc. 33.9 g/dL (33.0-37.0); Mean Corpuscular Hgb 30.9 pg (27.0-31.0); Mean Corpuscular Volume 91.1 fL (80.0-94.0); Mean Platelet Volume 10.9 fL (7.4-10.4); Platelet Count 139 10^3/uL (130-400); Red Blood Cell Count 3.72 10^6/uL (4.70-6.10); Red Cell Dist. Width 17.6 % (11.5-14.5)
[2024-05-18 08:17] LABS: Glucose - Point of Care 123 mg/dl (70-99)
[2024-05-18] MEDS: NOVOLOG FLEXPEN-LOW RESISTANCE SC ×2 (08:19→17:14)
--- NOTE | 2024-05-18 11:14 | W.PN.HOSP.TC ---
Today's Communication/Plan
-
See PN
Assessment / Plan
Assessment / Plan
78yo M with PMHX of DM, leukemia, Hx of appendecitis came with chills, found transaminitits and e.coli bacteremia, concern for cholangitis
A/P:
#Bacteremia with transaminitis and direct bilirubinemia
US without CBD dilation or gall bladder wall thickening
Cholelithiasis seen
MRCP
Abx
ID consult
repeat Bcx
GI consult
follow LFT
check INR
#DM type 2 with neuropathy
Accuchecks, Insulin SS, DM diet
#Non-onbstructive nephrolithiasis
#L adrenal adenoma
outpatient f/u for hormone production advised
#CML
cont to follow with established specialists
#Recent biopsy of scalp lesion
follow up with complaint evaluation officer
DVT ppx SCDs
Full code
I have spent at least 58min reviewing chart, test results, communication with consultants and direct patient care
Anticipated Discharge: > 48 hours
Subjective/Interval History
-
Date of Service: May 18, 2024
Objective Data
-
Labs:
Laboratory Results
05/18/24 05/18/24
05:24 11:12
WBC 5.0
Hgb 11.5 L
Hct 33.9 L
Plt Count 139
PT Pending
INR Pending
Sodium 141
Potassium 4.2
Chloride 102
Carbon Dioxide 26
BUN 29 H
Creatinine 1.3
Glucose 112 H
Calcium 8.4
Total Bilirubin 4.1 H
AST 287 H
ALT 438 H
Alkaline Phosphatase 182 H
Vital Signs:
Vital Signs
Temp Pulse Resp BP Pulse Ox
98.4 F 65 18 123/53 96
05/18/24 07:40 05/18/24 07:40 05/18/24 07:40 05/18/24 07:40 05/18/24 07:40
Review of Systems
-
History Source: Patient
All other systems: Reviewed and negative
Physical Exam
-
General: No Apparent Distress
HEENT: Normocephalic
Respiratory: Clear to Auscultation
Cardiac: Regular Rhythm
GI: Soft, Nontender and Nondistended
Genito-urinary: No Costovertebral Tender
Musculoskeletal: No Clubbing, No Cyanosis and No Edema
Neuro: Awake, Alert, Oriented and AO x 3
Psych: Calm
[2024-05-18 11:20] VITALS: BP 123/49
--- NOTE | 2024-05-18 11:26 | CON.GI ---
Consultation
-
Date/Time Consultation Requested: 05/18/24
Date/Time Consultation Performed: 05/18/24
Requesting Provider:
Performing Provider:
Reason for Consultation: 05/18/24
Medical History
Chief Complaint / HPI
Chief Complaint: chills, fatigue,nausea
History of Present Illness:
78-year-old male with history of CML, diabetes, colon polyps, Freeman's esophagus, Sleep apnea presents with chills, fatigue, nausea and 1 episode of vomiting, spoke to PCP and oncologist who recommended come to the ER for evaluation. In the
emergency room, noted to have elevated LFT's with total bili of 4.1, direct 2.5, AST/ALT-287/438, Alk phos 182, other lft's wnl. Temp 101, normal wbc count.
Denies any abdominal pain. No further episodes of vomiting since admission. No heartburn or trouble swallowing. His bowel movement pattern is 2-3 soft bowel movements in the morning and 1 at night and he has been taking Metamucil regularly which
helps. No blood in the stool or black stool. Occasional NSAIDs for back pain but not on a regular basis. Weight has been stable. Previous smoker and does not drink alcohol. Colonoscopy [place] [address] Mobley, 6 mm descending colon tubular
adenoma removed. Upper endoscopy in 2019 showing salmon-colored mucosa and intestinal metaplasia suggesting Freeman's.
US-Cholelithiasis. No gallbladder wall thickening or biliary tract dilatation. Negative sonographic Cherry's sign.Findings suggesting diffuse fatty liver.Small bilateral simple renal cysts. CBD 3mm
CT A/P with iv contrast-Gall stones noted, No significant acute abnormality identified in the abdomen or pelvis
Past Medical History
Past Medical History: Other (atypical CML, DM, MICKEY on CPAP, hx of renal stones, Freeman's esophagus)
Past Surgical History: Other (vasectomy, hx of lithotripsy)
Social History
Tobacco: Non-Smoker
Alcohol: Occasional
Family History
Family History: Reviewed & Not Pertinent
Allergies / Home Medications
Allergy/AdvReac Type Severity Reaction Status Date / Time
Bzfounk-QCU-DhT Reductase AdvReac Mild muscle Verified 05/17/24 13:50
Inhibitor cramps
[Ricwigg-Cnp-Tui Reductase
Inhibitor]
�Medication �Instructions �Recorded
metformin 1,000 mg tablet,extended 1,000 mg PO BID Diabetes 03/27/17
release 24hr (osmotic)
gilteritinib 40 mg tablet 120 mg PO HS Cancer 12/22/22
glimepiride 2 mg tablet 2 mg PO DAILY Diabetes 12/22/22
magnesium 250 mg tablet 1,000 mg PO BID Electrolyte 12/22/22
Repletion
potassium citrate 10 mEq (1,080 10 meq PO BID Electrolyte Repletion 10/18/23
mg) tablet,extended release
clobetasol 0.05 % topical cream 1 applic topical BID eczema 05/17/24
naproxen sodium 220 mg tablet 220 mg PO [id number] PRN mild pain 05/17/24
(Aleve)
omeprazole 20 mg capsule,delayed 20 mg PO DAILY 05/17/24
release
psyllium 1 packet PO BID 05/17/24
Review of Systems
-
All other systems: A 12 pt ROS was Negative except as stated above in HPI
Vital Signs
Temp Pulse Resp BP Pulse Ox
99 F 69 18 123/49 95
05/18/24 11:20 05/18/24 11:20 05/18/24 11:20 05/18/24 11:20 05/18/24 11:20
Physical Exam
Exam
Respiratory: Clear
Cardiac: S1/S2
GI: Soft, Non Tender, Non Distended and Normal Bowel Sounds
Neuro: AO x 3
Results
WBC 5.0 10^3/uL (4.8-10.8) 05/18/24 05:24
Hgb 11.5 g/dL (13.0-18.0) L 05/18/24 05:24
Hct 33.9 % (39.0-52.0) L 05/18/24 05:24
MCV 91.1 fL (80.0-94.0) 05/18/24 05:24
Plt Count 139 10^3/uL (130-400) 05/18/24 05:24
Absolute Neuts (auto) 3.8 10^3/uL (1.4-6.5) 05/17/24 15:53
Sodium 141 mmol/L (135-145) 05/18/24 05:24
Potassium 4.2 mmol/L (3.5-5.1) 05/18/24 05:24
Chloride 102 mmol/L (98-107) 05/18/24 05:24
Carbon Dioxide 26 mmol/L (22-30) 05/18/24 05:24
BUN 29 mg/dl (9-20) H 05/18/24 05:24
Creatinine 1.3 mg/dL (0.7-1.3) 05/18/24 05:24
Calcium 8.4 mg/dl (8.4-10.2) 05/18/24 05:24
Total Bilirubin 4.1 mg/dl (0.2-1.3) H 05/18/24 05:24
AST 287 U/L (17-59) H 05/18/24 05:24
ALT 438 U/L (0-50) H 05/18/24 05:24
Alkaline Phosphatase 182 U/L (38-126) H 05/18/24 05:24
Diagnostic Image Results:
Prior GI Procedures:
EGD:
Colonoscopy:
Assessment / Plan
-
78-year-old male with history of CML, Freeman's esophagus, sleep apnea, colon polyps presenting with sudden onset nausea/vomiting and chills, in the ER noted to have elevated LFTs, total bilirubin of 4.1 with direct of 2.5 and elevated alkaline
phosphatase as well apart from transaminases. Abdominal ultrasound showing cholelithiasis without any gallbladder wall thickening, diffuse fatty liver noted. CT scan showing no bile duct dilation.
-Nausea, chills with elevated LFTs, rule out acute cholecystitis/choledocholithiasis.
Will do MRI/MRCP to evaluate.
If there is evidence of choledocholithiasis, will need ERCP and subsequent laparoscopic cholecystectomy.
Will follow-up on the above testing.
-History of Freeman's esophagus
Continue omeprazole.
-History of colon polyps, outpatient follow-up with Dr. Mobley. Colonoscopy due in 2024
-
-
Thank you for consultation and allowing me to participate in the patient's care. Please call the personal injury specialist GI physician during the after hours with any questions or concerns.
[2024-05-18 11:44] LABS: Glucose - Point of Care 152 mg/dl (70-99)
--- NOTE | 2024-05-18 11:49 | CM ---
Met with patient and
Dx: appendecitis came in with chills, concern for cholangitis
PMH: DM, leukemia. recent MOHS procedure on scalp
States receives treatment at [place] via port
IA completed.
Lives in a 1 story home with , 1 step to enter
PLOF: Ambulates without AD
DME: glucometer
Denies VN and SNFin past.
Denies food/utilities/housing/transportation insecurities.
Currently no needs anticipated.
PCP: Lucia Baptiste
Pharmacy: [address], [place]
PLAN: home, no needs anticipated
[2024-05-18 11:53] LABS: INR 1.18; PT 14.8 Sec (11.4-14.6)
[2024-05-18] MEDS: NSS 1000 IV (13:13)
[2024-05-18] MEDS: NOVOLOG FLEXPEN-LOW RESISTANCE 1 UNITS SC (13:17)
[2024-05-18 15:04] VITALS: BP 125/47
--- NOTE | 2024-05-18 16:52 | CON.ID ---
Consultation
-
Date/Time Consultation Requested: 05/18/2024 1109
Date/Time Consultation Performed: 05/18/2024 1630
Requesting Provider: Dr. Burkett
Performing Provider: Dr. Caldwell
Reason for Consultation: Bacteremia
Chief Complaint / Past History
History of Present Illness
Edil Jarrell is a 78-year-old man being evaluated at the request of Dr. Burkett regarding bacteremia. History is obtained from chart review, along with patient interview. The patient has a history of CML, and currently followed by Oncology. He
reports he received a treatment for his CML last week.
He presented to [facility] ER on 05/17/2024 following the development of chills along with fatigue and nausea on the day of admission. He notes he was seen eating lunch and had the acute onset of chills, along with the development of
rigors. He contacted both his PCP and Oncologist, and both recommended evaluation in the ER.
In the ER, he was not found to have leukocytosis, but was noted to have an elevated bilirubin and transaminitis. Blood cultures obtained at the time of admission are now positive for E. coli, and Infectious Diseases is asked to comment upon further
antimicrobial therapy.
At the present time he denies any abdominal pain. He does not recall having any abdominal pain yesterday either. He has no prior history of similar symptoms.
Past History
Additional Past Medical History:
NIDDM
CML (on chemotherapy; recent treatment last week)
MICKEY
Nephrolithiasis
Additional Past Surgical History:
Vasectomy
Lithotripsy
Allergy History:
Weemjai-MCV-QwY Reductase Inhibitor [Hjasbvd-Hdd-Uih Reductase Inhibitor] Adverse Reaction (Mild, Verified 05/17/24 13:50)
muscle cramps
Medications Reviewed: Yes
Current Antibiotics:
Zosyn 3.375 g IV every 6 hours
Social History
Tobacco: Former Smoker
Alcohol: Occasional
Drug: None
Employment: Employed
Family History
Family History: Not Pertinent
Review of Systems
Vital Signs
Temp Pulse Resp BP Pulse Ox
98.6 F 81 18 125/47 96
05/18/24 15:04 05/18/24 15:04 05/18/24 15:04 05/18/24 15:04 05/18/24 15:04
Physical Exam
Physical Exam
Constitutional: No Acute Distress, Comfortable and Non-toxic
Eyes: No Conjunctival Hemorrhage and Other (Mild scleral icterus)
Pharynx: Benign
Oral: No Thrush and No Ulcers
Cardiovascular: S1/S2; Negative S3/S4
Pulmonary: Clear and Non Labored
Gastrointestinal: Soft, Non Tender, Non Distended, Normal Bowel Sounds, No Rebound and No Guarding
Genito-Urinary: Negative Suprapubic Tenderness or CVA Tenderness
Extremities: Negative Edema, Cyanosis or Erythema
Skin: Warm and Dry; Negative Rash or Jaundice
Neurological: Awake and Alert
Psychological: Calm
.
Lab / Diagnostic Study Results
05/18/24 05:24
05/18/24 05:24
Abs Immat Gran (auto) 0.1 10^3/uL (0-0.05) H 05/17/24 15:53
Absolute Neuts (auto) 3.8 10^3/uL (1.4-6.5) 05/17/24 15:53
Absolute Lymphs (auto) 0.3 10^3/uL (1.2-3.4) L 05/17/24 15:53
Absolute Monos (auto) 0.9 10^3/uL (0.1-0.6) H 05/17/24 15:53
Absolute Basos (auto) 0.1 10^3/uL (0-0.2) 05/17/24 15:53
Immature Gran % 1.0 % (0-0.5) H 05/17/24 15:53
Neutrophils % 74.3 % (42.2-75.2) 05/17/24 15:53
Lymphocytes % 5.4 % (20.5-51.1) L 05/17/24 15:53
Monocytes % 17.7 % (1.7-9.3) H 05/17/24 15:53
Eosinophils % 0.0 % (0-6) 05/17/24 15:53
Basophils % 1.6 % (0-2) 05/17/24 15:53
PT 14.8 Sec (11.4-14.6) H 05/18/24 11:28
INR 1.18 05/18/24 11:28
Lactic Acid Cancelled 05/18/24 09:52
Microbiology Results
Micro:
05/18/24 11:28 Blood Culture - Pending
Blood/Venous
05/17/24 17:42 Blood Culture - Preliminary
Blood/Venous Escherichia coli
Gram Stain - Final
05/18/24 08:30 Blood Culture - Pending
Blood/Venous
05/17/24 17:45 Blood Culture - Preliminary
Blood/Venous Positive culture in progress
Gram Stain - Final
05/17/24 15:21 Influenza Types A & B (ISRRAEL) - Final
Nasal Swab Negative for Influenza A & B, NAAT
Negative results must be combined with clinical observations
and patient history.
Nucleic Acid Amplification test (NAAT)performed on the
[employer] platform.
Imaging:
05/18/2024 MRCP: Multiple small gallstones are seen within the gallbladder but no evidence of acute cholecystitis. No significant biliary ductal dilatation noted. No definite common bile duct stone seen.
05/18/2024 Abdominal ultrasound. Cholelithiasis, but without gallbladder wall thickening or biliary tract dilatation. Negative sonographic Cherry sign.
05/17/2024 CT abdomen/pelvis with contrast: Small nonobstructing bilateral renal calculi are redemonstrated. No hydronephrosis. A simple left renal cyst for which no follow-up imaging is recommended is noted. The liver, spleen and pancreas are
within normal limits. Please see full dictation for additional detail.
Assessment / Plan
E. coli bacteremia
Suspected transitory biliary obstruction
Transaminitis
Elevated bilirubin
NIDDM
CML (on chemotherapy; recent treatment last week)
MICKEY
Nephrolithiasis
Recommendations:
Continue with empiric Zosyn.
Monitor white count and temperature curve.
Await full sensitivity data of recovered E. coli isolate to guide antimicrobial selection and de-escalation.
Trend LFTs and bilirubin for improvement.
[2024-05-18 16:53] LABS: Glucose - Point of Care 102 mg/dl (70-99)
[2024-05-18 19:50] VITALS: BP 135/52
[2024-05-18 21:29] LABS: Glucose - Point of Care 122 mg/dl (70-99)
[2024-05-18 23:51] VITALS: BP 107/64
[2024-05-19] MEDS: NSS 1000 IV (00:05)
[2024-05-19] MEDS: ZOSYN 50 IV ×5 (00:07→23:39)
[2024-05-19 03:36] VITALS: BP 122/63
[2024-05-19 05:30] LABS: % Basophils 3.3 % (0-2); % Eosinophils 1.2 % (0-6); % Immature Granulocytes 1.2 % (0-0.5); % Lymphocytes 9.1 % (20.5-51.1); % Monocytes 9.4 % (1.7-9.3); % Neutrophils 75.8 % (42.2-75.2); Absolute Basophils 0.1 10^3/uL (0-0.2); Absolute Lymphocytes 0.3 10^3/uL (1.2-3.4); Absolute Monocytes 0.3 10^3/uL (0.1-0.6); Absolute Neutrophils 2.5 10^3/uL (1.4-6.5); Hematocrit 31.7 % (39.0-52.0); Hemoglobin 10.8 g/dL (13.0-18.0); Mean Corp Hgb Conc. 34.1 g/dL (33.0-37.0); Mean Corpuscular Hgb 31.1 pg (27.0-31.0); Mean Corpuscular Volume 91.4 fL (80.0-94.0); Mean Platelet Volume 10.9 fL (7.4-10.4); Nucleated Red Blood Cells % 0 % (-); Platelet Count 121 10^3/uL (130-400); Red Blood Cell Count 3.47 10^6/uL (4.70-6.10); Red Cell Dist. Width 17.4 % (11.5-14.5); White Blood Cell Count 3.3 10^3/uL (4.8-10.8)
[2024-05-19 05:53] LABS: ALT (SGPT) 258 U/L (0-50); AST (SGOT) 112 U/L (17-59); Albumin 3.5 g/dl (3.5-5.0); Alkaline Phosphatase 150 U/L (38-126); Blood Urea Nitrogen 17 mg/dl (9-20); Calcium 8.6 mg/dl (8.4-10.2); Carbon Dioxide 24 mmol/L (22-30); Chloride 106 mmol/L (98-107); Estimated Creatinine Clearance 58 ml/min; Glucose 109 mg/dl (70-99); Sodium 141 mmol/L (135-145); Total Bilirubin 3.1 mg/dl (0.2-1.3); Total Protein 5.8 g/dl (6.3-8.2); eGFR > 60.00
[2024-05-19 06:56] VITALS: BP 124/58
[2024-05-19 07:23] LABS: Glucose - Point of Care 108 mg/dl (70-99)
[2024-05-19] MEDS: NOVOLOG FLEXPEN-LOW RESISTANCE SC ×3 (08:57→17:15)
--- NOTE | 2024-05-19 09:40 | CON.ONC ---
Impression
Impression
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
# Elevated LFTs, rule out acute cholecystitis/cholelithiasis
- LFTs downtrending
- GI consulted, no evidence for acute cholecystitis/cholelithiasis on MRCP and abdominal CT
- No leukocytosis on this admission
- Patient currently not febrile
- Likely transient biliary obstruction, less likely medication-induced transaminitis
- Hep B/C pending
# Atypical CML
- Was on gilteritinib, continue to hold
- Follow-up with Dr. Fairbanks for treatment plans
# E. coli bacteremia
- ID consulted, awaiting final culture results
- Continue Zosyn
# Normocytic anemia
- Chronic, drop from 12.8 to 10.8 this admission
- Likely in the setting of acute inflammation
- Monitor Hb levels
# Gip-bxejnnu-wxfuhnvvn diabetes
- Continue medications
# History of colon polyps
- No symptoms
- Colonoscopy scheduled in 2024
Plan
Plan
Continue Zosyn
Monitor LFTs and blood counts
Continue to hold Gilteritinib
Patient History
History of Present Illness
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
fatigue, nausea and 1 episode of vomiting. Patient denies abdominal pain. No leukocytosis was found on admission. Abdominal ultrasound was positive for cholelithiasis with no gallbladder wall thickening, CBD thickening and negative Cherry sign.
Abdominal CT showed cholelithiasis and nephrolithiasis biliary tree, no biliary duct dilatation. GI was consulted and MRCP was performed that showed gallstones without biliary duct dilatation. Blood cultures are positive for E. coli, ID consulted
and patient is on Zosyn every 6 hours. Patient is noted to have skin biopsies done last week for evaluation of skin lesions on scalp, pathology pending. We are consulted for evaluation of minimal pancytopenia and recommendations on medication upon
discharge.
Past-Medical/Surgical History
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
Vvn-mcrbkqd-unieotyvr diabetes mellitus
1.3 cm left adrenal adenoma
Freeman's esophagus
Colon polyp, removed with colonoscopy in 2019
Past surgical history: Appendectomy (September 2023)
Patient Medication
�Medication �Instructions �Recorded �Confirmed �Last Taken �Type
metformin 1,000 mg tablet,extended 1,000 mg PO BID Diabetes 03/27/17 05/17/24 05/17/24 History
release 24hr (osmotic)
gilteritinib 40 mg tablet 120 mg PO HS Cancer 12/22/22 05/17/24 05/16/24 History
glimepiride 2 mg tablet 2 mg PO DAILY Diabetes 12/22/22 05/17/24 05/17/24 History
magnesium 250 mg tablet 1,000 mg PO BID Electrolyte 12/22/22 05/17/24 05/17/24 History
Repletion
potassium citrate 10 mEq (1,080 10 meq PO BID Electrolyte Repletion 10/18/23 05/17/24 05/17/24 History
mg) tablet,extended release
clobetasol 0.05 % topical cream 1 applic topical BID eczema 05/17/24 05/17/24 05/17/24 History
naproxen sodium 220 mg tablet 220 mg PO [id number] PRN mild pain 05/17/24 05/17/24 Unknown History
(Aleve)
omeprazole 20 mg capsule,delayed 20 mg PO DAILY Gastrointestinal 05/17/24 05/17/24 05/17/24 History
release Issue
psyllium 1 packet PO BID Gastrointestinal 05/17/24 05/17/24 05/17/24 History
Issue
Active Medications
Generic Name Dose Route Start Last Admin
Trade Name Freq PRN Reason Stop Dose Admin
Dextrose 12.5 grams 05/17/24 21:52
Dextrose 50% (0.5 Grams/Ml) 50 Ml Syringe IV 06/14/24 21:51
[id number] PRN
hypoglycemia
Protocol
Glucagon 1 mg 05/17/24 21:52
Glucagon 1 Mg Vial IM 06/14/24 21:51
PRN PRN
hypoglycemia
Protocol
Heparin Sodium (Porcine) 500 unit 05/19/24 02:30
Heparin Flush Pf (100 Unit/Ml) 5 Ml Syringe IV 06/16/24 02:29
PER PROTOCOL JINA
Piperacillin Sod/Tazobactam Sod 3.375 gram in 50 mls @ 100 mls/hr 05/18/24 00:00 05/19/24 06:07
Zosyn IV 50 mls
Q6 JINA Administration
Insulin Aspart 0 units 05/18/24 07:30 05/19/24 08:57
Insulin Aspart Low Resistance 300 Units/3 Ml Pen.Injctr SC 06/15/24 07:29 Not Given
AC JINA
Protocol
Sodium Chloride 0 flush 05/17/24 23:00
Sodium Chloride 0.9% (Flush) Syringe IV 06/14/24 22:59
PER PROTOCOL JINA
Review of Systems
-
History Source: Patient
Constitutional: Reports No Symptoms
Respiratory: Reports No Symptoms
Cardiac: Reports No Symptoms
GI: Reports No Symptoms
: Reports No Symptoms
Musculoskeletal: Reports No Symptoms
Skin: Reports Rash
Neuro: Reports No Symptoms
Endocrine: Reports No Symptoms
Physical Exam
-
General: Well Developed, Well Nourished and No Apparent Distress
Cardiology: Normal Sinus Rhythm, S1 and S2
Pulmonary: Clear
GI: Soft and Normal Bowel Sounds
Genito-Urinary: No Costovertebral Tenderness
Musculoskeletal: No Clubbing
Skin: Rash (Psoriatic rash on anterior surface of bilateral knees and dorsal surface of bilateral elbows) and Ulcers (Ulcers on scalp, biopsied last week awaiting pathology)
Psych: Calm
Labs
Lab Results
WBC 3.3 10^3/uL (4.8-10.8) L 05/19/24 05:16
RBC 3.47 10^6/uL (4.70-6.10) L 05/19/24 05:16
Hgb 10.8 g/dL (13.0-18.0) L 05/19/24 05:16
Hct 31.7 % (39.0-52.0) L 05/19/24 05:16
MCV 91.4 fL (80.0-94.0) 05/19/24 05:16
MCH 31.1 pg (27.0-31.0) H 05/19/24 05:16
MCHC 34.1 g/dL (33.0-37.0) 05/19/24 05:16
RDW 17.4 % (11.5-14.5) H 05/19/24 05:16
Plt Count 121 10^3/uL (130-400) L 05/19/24 05:16
MPV 10.9 fL (7.4-10.4) H 05/19/24 05:16
Abs Immat Gran (auto) 0.0 10^3/uL (0-0.05) 05/19/24 05:16
Absolute Neuts (auto) 2.5 10^3/uL (1.4-6.5) 05/19/24 05:16
Absolute Lymphs (auto) 0.3 10^3/uL (1.2-3.4) L 05/19/24 05:16
Absolute Monos (auto) 0.3 10^3/uL (0.1-0.6) 05/19/24 05:16
Absolute Eos (auto) 0.0 10^3/uL (0-0.7) 05/19/24 05:16
Absolute Basos (auto) 0.1 10^3/uL (0-0.2) 05/19/24 05:16
Immature Gran % 1.2 % (0-0.5) H 05/19/24 05:16
Neutrophils % 75.8 % (42.2-75.2) H 05/19/24 05:16
Lymphocytes % 9.1 % (20.5-51.1) L 05/19/24 05:16
Monocytes % 9.4 % (1.7-9.3) H 05/19/24 05:16
Eosinophils % 1.2 % (0-6) 05/19/24 05:16
Basophils % 3.3 % (0-2) H 05/19/24 05:16
Creatinine 1.2 mg/dL (0.7-1.3) 05/19/24 05:16
Vital Signs
Vital Signs
Temp Pulse Resp BP Pulse Ox
98.5 F 63 22 124/58 98
05/19/24 06:56 05/19/24 06:56 05/19/24 06:56 05/19/24 06:56 05/19/24 06:56
--- NOTE | 2024-05-19 10:33 | W.PN.HOSP.TC ---
Today's Communication/Plan
-
GenSx eval
Hem eval
cont Abx
Assessment / Plan
Assessment / Plan
78yo M with PMHX of DM, leukemia, Hx of appendecitis came with chills, found transaminitits and e.coli bacteremia, concern for cholangitis
A/P:
#Bacteremia with transaminitis and direct bilirubinemia
#Cholelithiasis
Since LFT resolving - possibly patient passed gall stone
GenSx for eval for cholecystectomy
US without CBD dilation or gall bladder wall thickening
Cholelithiasis seen
MRCP showed no CBD dilation
ZOsyn and pending further ID reccomnedations
repeat Bcx
GI consult
follow LFT
#DM type 2 with neuropathy
Accuchecks, Insulin SS, DM diet
#Non-obstructive nephrolithiasis
#L adrenal adenoma
outpatient f/u for hormone production advised
#CML
#Pancytopenia
cont to follow with established specialists
Oncology consult for further recommendations for outpatient meds
#Recent biopsy of scalp lesion
follow up with cigarette examiner
DVT ppx SCDs
Full code
I have spent at least 38min reviewing chart, test results, communication with consultants and direct patient care
Anticipated Discharge: > 48 hours
Subjective/Interval History
-
Date of Service: May 19, 2024
Objective Data
-
Labs:
Laboratory Results
05/19/24
05:16
WBC 3.3 L
Hgb 10.8 L
Hct 31.7 L
Plt Count 121 L
Sodium 141
Potassium 4.0
Chloride 106
Carbon Dioxide 24
BUN 17
Creatinine 1.2
Glucose 109 H
Calcium 8.6
Total Bilirubin 3.1 H
AST 112 H
ALT 258 H
Alkaline Phosphatase 150 H
Vital Signs:
Vital Signs
Temp Pulse Resp BP Pulse Ox
98.5 F 63 22 124/58 98
05/19/24 06:56 05/19/24 06:56 05/19/24 06:56 05/19/24 06:56 05/19/24 06:56
I&O
05/18/24 05/19/24 05/20/24
06:59 06:59 06:59
Intake Total 1340 / 1340
Output Total 750 / 750
Balance 590 / 590
Review of Systems
-
History Source: Patient
All other systems: Reviewed and negative
Physical Exam
-
General: No Apparent Distress
HEENT: Normocephalic
Respiratory: Clear to Auscultation
GI: Soft, Nontender and Nondistended
Skin: Warm
Neuro: Awake, Alert, Oriented and AO x 3
Psych: Calm
[2024-05-19 11:38] VITALS: BP 147/54
[2024-05-19 12:12] LABS: Glucose - Point of Care 108 mg/dl (70-99)
--- NOTE | 2024-05-19 14:24 | CON.GS ---
Addendum entered and electronically signed by Aaron Esquivel MD 05/19/24 17:45:
I saw and examined the patient independently.
The Ice Cream Dispenser's note was reviewed and I agree with the note, assessment and plan except where noted below.
Comment: This is an 78-year-old male with a history of a laparoscopic appendectomy who presents with right upper quadrant abdominal pain nausea and vomiting found to have elevated LFTs and E. coli bacteremia. The patient underwent MRCP which was
negative for choledocholithiasis and LFTs of now down trended. General surgery consulted for interval laparoscopic cholecystectomy.
Will plan for laparoscopic cholecystectomy in the OR tomorrow with cholangiogram.
N.p.o. at midnight, continue antibiotics.
Risks/Benefits/Alternatives, expected postoperative course and possible complications (bleeding, infection, injury to surrounding structures, acute/chronic pain) discussed at length. Patient wishes to proceed with surgery. All questions answered.
Consent obtained.
I spent 60 minutes in total for the care of this patient today including direct patient care and counseling, reviewing labs, imaging, coordination of care, as well as documentation.
Original Note:
Medical History
-
Chief Complaint: chills/fatigue/nausea
History of Present Illness:
Mr. Jarrell is an 78 yo male with a h/o atypical cml, niddm, renal calculi and appendectomy earlier this year for perforated appendicitis who presented through the ED with chills, fatigue and nausea at the recommendation of his pcp and oncologist. He
notes that he had no abdominal pain but did have one episode of vomiting with nausea. He denies changes to bladder or bowel. He currently offers no complaints and is resting comfortably in bed.
Past Medical History
Past Medical History: Cancer (CML), GERD (stockton's esophagus), Hypercholesterolemia, NIDDM and Other (Anemia, nephrolithiasis, MICKEY on cpap)
Past Surgical History: Appendectomy (09/[address] Esquivel) and Urological (lithotripsy, ureterscopy)
Social History
Tobacco: Former Smoker
Alcohol: Occasional
Employment: Employed
Family History
Family History: Reviewed & Not Pertinent
Allergies / Home Medications
Allergy/AdvReac Type Severity Reaction Status Date / Time
Vjrlngg-QFQ-SsR Reductase AdvReac Mild muscle Verified 05/17/24 13:50
Inhibitor cramps
[Wbixndc-Iei-Vbu Reductase
Inhibitor]
�Medication �Instructions �Recorded �Confirmed �Type
metformin 1,000 mg tablet,extended 1,000 mg PO BID Diabetes 03/27/17 05/17/24 History
release 24hr (osmotic)
gilteritinib 40 mg tablet 120 mg PO HS Cancer 12/22/22 05/17/24 History
glimepiride 2 mg tablet 2 mg PO DAILY Diabetes 12/22/22 05/17/24 History
magnesium 250 mg tablet 1,000 mg PO BID Electrolyte 12/22/22 05/17/24 History
Repletion
potassium citrate 10 mEq (1,080 10 meq PO BID Electrolyte Repletion 10/18/23 05/17/24 History
mg) tablet,extended release
clobetasol 0.05 % topical cream 1 applic topical BID eczema 05/17/24 05/17/24 History
naproxen sodium 220 mg tablet 220 mg PO [id number] PRN mild pain 05/17/24 05/17/24 History
(Aleve)
omeprazole 20 mg capsule,delayed 20 mg PO DAILY Gastrointestinal 05/17/24 05/17/24 History
release Issue
psyllium 1 packet PO BID Gastrointestinal 05/17/24 05/17/24 History
Issue
Review of Systems
-
History Source: Patient
All other systems: Negative unless noted
A 10 point review of systems was completed, and was negative except as per HPI.
Physical Exam
Vital Signs
Temp Pulse Resp BP Pulse Ox
97.9 F 63 22 147/54 99
05/19/24 11:38 05/19/24 11:38 05/19/24 11:38 05/19/24 11:38 05/19/24 11:38
05/18/24 05/19/24 05/20/24
06:59 06:59 06:59
Actual Weight 100.108 kg
Body Mass Index (BMI) 31.7
Lab Results
05/19/24 05:16
05/19/24 05:16
WBC 3.3 10^3/uL (4.8-10.8) L 05/19/24 05:16
Hgb 10.8 g/dL (13.0-18.0) L 05/19/24 05:16
Hct 31.7 % (39.0-52.0) L 05/19/24 05:16
Plt Count 121 10^3/uL (130-400) L 05/19/24 05:16
Abs Immat Gran (auto) 0.0 10^3/uL (0-0.05) 05/19/24 05:16
Neutrophils % 75.8 % (42.2-75.2) H 05/19/24 05:16
Physical Exam
General: Well Developed and Well Nourished
HEENT: Moist Mucous Membranes
Respiratory: Non Labored Respirations
GI: Soft, Non Tender and Non Distended
Skin: Warm and Dry
Neuro: Awake, Alert and AO x 3
Psych: Calm
Data Reviewed
-
CT Scan: Image Personally Visualized and interpreted, Report Reviewed by me, Discussed with Physician and Discussed with Patient
MRI: Image Personally Visualized and interpreted, Report Reviewed by me, Discussed with Physician and Discussed with Patient
Labs: Labs Reviewed by me, Discussed with Physician and Discussed with Patient
Assessment / Plan
-
Mr. Jarrell is an 78 yo male with a h/o atypical cml, niddm, renal calculi and appendectomy earlier this year with Dr. Esquivel for perforated appendicitis who presented through the ED with chills, fatigue and nausea at the recommendation of his pcp and
oncologist. He notes that he had no abdominal pain but did have one episode of vomiting with nausea. He is nontender on exam. Work up was notable for elevated LFT's and ecoli bacteremia. CT imaging with noted cholelithiasis without cholecystistis
with follow up MRCP negative for choledocholithiasis. Suspected cholangitis with passage of stone. Currently on a full liquid diet and tolerating without pain/nausea. AFVSS. Mild leukopenia present.
Would recommend cholecystectomy in setting of likely cholangitis to prevent recurrence. Will arrange for OR tomorrow
NPO after MN for OR
Continue ABX as per ID
Medical care as per primary
[2024-05-19 15:13] VITALS: BP 145/60
--- NOTE | 2024-05-19 15:52 | W.PN.ID1 ---
Date of Service
Date of Service: May 19, 2024
Today's Communication
Continue antibiotics.
Assessment / Plan
E. coli bacteremia
Suspected transitory biliary obstruction
Transaminitis
Elevated bilirubin
NIDDM
CML (on chemotherapy; recent treatment last week)
MICKEY
Nephrolithiasis
Recommendations:
Continue with empiric Zosyn.
Monitor white count and temperature curve.
Await full sensitivity data of recovered E. coli isolate to guide antimicrobial selection and de-escalation.
Trend LFTs and bilirubin for improvement.
Chart reviewed. Patient evaluated by General Surgery, and for tentative cholecystectomy tomorrow.
����������������������������������������������������������
Chief Complaint
-: Bacteremia and Other (Acute cholecystitis)
Subjective / Review of Systems
Review of Systems: No Fever and No Chills
Vital Signs / Physical Exam
Vital Signs
Vital Signs
Temp Pulse Resp BP Pulse Ox
97.9 F 63 22 147/54 99
05/19/24 11:38 05/19/24 11:38 05/19/24 11:38 05/19/24 11:38 05/19/24 11:38
Physical Exam
Constitutional: No Acute Distress, Comfortable and Non-toxic
Eyes: No Conjunctival Hemorrhage
Cardiovascular: S1/S2; Negative S3/S4
Pulmonary: Non Labored
Gastrointestinal: Non Distended
Skin: Warm and Dry; Negative Rash or Jaundice
Neurological: Awake and Alert
Psychological: Calm
Objective Data
Lab Data
Lab Results
05/19/24 05:16
05/19/24 05:16
PT 14.8 Sec (11.4-14.6) H 05/18/24 11:28
INR 1.18 05/18/24 11:28
Estimated Creat Clear 58 ml/min 05/19/24 05:16
Lactic Acid Cancelled 05/18/24 09:52
Total Bilirubin 3.1 mg/dl (0.2-1.3) H 05/19/24 05:16
AST 112 U/L (17-59) H 05/19/24 05:16
ALT 258 U/L (0-50) H 05/19/24 05:16
Alkaline Phosphatase 150 U/L (38-126) H 05/19/24 05:16
Most recent labs reviewed.
Micro Results:
05/18/24 11:28 Blood Culture - Preliminary
Blood/Venous No Growth in 24 hours- Final report to follow
05/17/24 17:45 Blood Culture - Preliminary
Blood/Venous Escherichia coli
Gram Stain - Final
05/17/24 17:42 Blood Culture - Preliminary
Blood/Venous Escherichia coli
Gram Stain - Final
05/18/24 08:30 Blood Culture - Preliminary
Blood/Venous No Growth in 24 hours- Final report to follow
05/17/24 15:21 Influenza Types A & B (ISRRA[place]) - Final
Nasal Swab Negative for Influenza A & B, NAAT
Negative results must be combined with clinical observations
and patient history.
Nucleic Acid Amplification test (NAAT)performed on the
[employer] platform.
Imaging:
05/18/2024 MRCP: Multiple small gallstones are seen within the gallbladder but no evidence of acute cholecystitis. No significant biliary ductal dilatation noted. No definite common bile duct stone seen.
05/18/2024 Abdominal ultrasound. Cholelithiasis, but without gallbladder wall thickening or biliary tract dilatation. Negative sonographic Cherry sign.
05/17/2024 CT abdomen/pelvis with contrast: Small nonobstructing bilateral renal calculi are redemonstrated. No hydronephrosis. A simple left renal cyst for which no follow-up imaging is recommended is noted. The liver, spleen and pancreas are
within normal limits. Please see full dictation for additional detail.
--- NOTE | 2024-05-19 16:13 | W.PN.GI.CBS2 ---
Today's Communication / Plan
-
-Nausea, chills with elevated LFTs, rule out acute cholecystitis/choledocholithiasis.
No evidence of choledocholithiasis on MRCP but E coli bactermia noted on blood cx, currently on Abx
Noted plan for lap chase tomorrow, will f/u on the IO
-History of Freeman's esophagus
Continue omeprazole.
-History of colon polyps, outpatient follow-up with Dr. Mobley. Colonoscopy due in 2024
Assessment / Plan
-
78-year-old male with history of CML, Freeman's esophagus, sleep apnea, colon polyps presenting with sudden onset nausea/vomiting and chills, in the ER noted to have elevated LFTs, total bilirubin of 4.1 with direct of 2.5 and elevated alkaline
phosphatase as well apart from transaminases. Abdominal ultrasound showing cholelithiasis without any gallbladder wall thickening, diffuse fatty liver noted. CT scan showing no bile duct dilation.
MRI/MRCP-. Multiple small gallstones are seen within the gallbladder. No evidence of acute cholecystitis.
2. No significant biliary ductal dilation is appreciated. No definite common bile duct stones are seen.
-Nausea, chills with elevated LFTs, rule out acute cholecystitis/choledocholithiasis.
No evidence of choledocholithiasis on MRCP but E coli bactermia noted on blood cx, currently on Abx
Noted plan for lap chase tomorrow, will f/u on the IO
-History of Freeman's esophagus
Continue omeprazole.
-History of colon polyps, outpatient follow-up with Dr. Mobley. Colonoscopy due in 2024
Subjective
Subjective
Date of Service: May 19, 2024
No fevers or chills, no events overnight
Objective
Data Reviewed
Laboratory Data:
Laboratory Results
05/19/24 05:16
05/19/24 05:16
Laboratory Results
PT 14.8 Sec (11.4-14.6) H 05/18/24 11:28
INR 1.18 05/18/24 11:28
Total Bilirubin 3.1 mg/dl (0.2-1.3) H 05/19/24 05:16
AST 112 U/L (17-59) H 05/19/24 05:16
ALT 258 U/L (0-50) H 05/19/24 05:16
Alkaline Phosphatase 150 U/L (38-126) H 05/19/24 05:16
Vital Signs and I&O:
Vital Signs
Temp Pulse Resp BP Pulse Ox
97.9 F 63 22 147/54 99
05/19/24 11:38 05/19/24 11:38 05/19/24 11:38 05/19/24 11:38 05/19/24 11:38
I&O
05/18/24 05/19/24 05/20/24
06:59 06:59 06:59
Intake Total 1340 / 1340
Output Total 750 / 750
Balance 590 / 590
[2024-05-19 16:44] LABS: Glucose - Point of Care 115 mg/dl (70-99)
--- NOTE | 2024-05-19 18:10 | PTCARENOTE ---
Patient was found with HR of 154 using a bathroom. Asymptomatic, BP 154/86. MD made aware. New orders received and administered as prescribed. All safety measures are in place.
[2024-05-19] MEDS: LR 1000 IV (18:27)
[2024-05-19] MEDS: LOPRESSOR 5 MG IV (18:28)
[2024-05-19 19:31] LABS: Hepatitis B Surface Antigen Negative (Negative)
[2024-05-19 19:49] LABS: Hepatitis B Core Ab, Total Negative (Negative); Hepatitis B Surface Antibody Negative; Hepatitis C Antibody Negative (Negative)
[2024-05-19 20:02] VITALS: BP 133/78
[2024-05-19] MEDS: LOPRESSOR 25 MG PO (20:13)
[2024-05-19 21:45] LABS: Glucose - Point of Care 130 mg/dl (70-99)
[2024-05-19 22:37] VITALS: BP 140/88
[2024-05-20] VITALS (17 sets, daily range): BP systolic 101–146; BP diastolic 44–93
--- NOTE | 2024-05-20 04:53 | PTCARENOTE ---
Pt aaox3 able to make his needs known.Pt anxious at times about being here & he has to see a ceramic design engineer now for afibb. Pt was provided with emotional & psychological support as needed.Pt HR iin 90's when resting,with any activity or using urinal
only [id number] not susutaining & when pt back in bed he is back in 90's.RUBBER FLAP TUBER MACHINE OPERATOR made aware of pt new afibb from daytime, pt asymptomatic.HUMAN RESOURCES TRAINEE ordered prn lopressor 5mg, if HR sustaining in 120's.No other complaints noted,Plan of care continued.
[2024-05-20 05:13] LABS: % Basophils 4.7 % (0-2); % Eosinophils 1.9 % (0-6); % Immature Granulocytes 0.4 % (0-0.5); % Lymphocytes 12.5 % (20.5-51.1); % Monocytes 6.6 % (1.7-9.3); % Neutrophils 73.9 % (42.2-75.2); Absolute Basophils 0.1 10^3/uL (0-0.2); Absolute Eosinophils 0.1 10^3/uL (0-0.7); Absolute Lymphocytes 0.3 10^3/uL (1.2-3.4); Absolute Monocytes 0.2 10^3/uL (0.1-0.6); Absolute Neutrophils 1.9 10^3/uL (1.4-6.5); Hematocrit 35.4 % (39.0-52.0); Hemoglobin 11.9 g/dL (13.0-18.0); Mean Corp Hgb Conc. 33.6 g/dL (33.0-37.0); Mean Corpuscular Volume 89.2 fL (80.0-94.0); Mean Platelet Volume 11.4 fL (7.4-10.4); Nucleated Red Blood Cells % 0 % (-); Platelet Count 122 10^3/uL (130-400); Red Blood Cell Count 3.97 10^6/uL (4.70-6.10); White Blood Cell Count 2.6 10^3/uL (4.8-10.8)
[2024-05-20 05:33] LABS: ALT (SGPT) 181 U/L (0-50); AST (SGOT) 58 U/L (17-59); Albumin 3.7 g/dl (3.5-5.0); Alkaline Phosphatase 152 U/L (38-126); Blood Urea Nitrogen 15 mg/dl (9-20); Carbon Dioxide 25 mmol/L (22-30); Chloride 106 mmol/L (98-107); Estimated Creatinine Clearance 70 ml/min; Glucose 145 mg/dl (70-99); Lipase 36 U/L (23-300); Sodium 140 mmol/L (135-145); Total Bilirubin 2.5 mg/dl (0.2-1.3); Total Protein 5.9 g/dl (6.3-8.2); eGFR > 60.00
[2024-05-20] MEDS: ZOSYN 50 IV ×2 (05:43→11:55)
[2024-05-20] MEDS: LOPRESSOR 5 MG IV (06:25)
[2024-05-20] MEDS: LR 1000 IV (07:28)
[2024-05-20 08:04] LABS: Glucose - Point of Care 145 mg/dl (70-99)
[2024-05-20] MEDS: NOVOLOG FLEXPEN-LOW RESISTANCE SC ×3 (08:11→17:48)
[2024-05-20] MEDS: LOPRESSOR 25 MG PO ×2 (08:43→22:43)
--- NOTE | 2024-05-20 08:43 | W.PN.GS2 ---
Today's Communication / Plan
-
-- Laparoscopic cholecystectomy with IOC
-- NPO, IVF per Hospitalist
-- Abx: Zosyn
-- Isabella-operative management of HR and clearance for OR per Cardiology and Hospitalist
Assessment / Plan
-
Patient is an 78 yo M p/w likely choledocholithiasis
Issues with A-fib with RVR, improved rate control with beta-blockade, cardiology consult pending, BP stable, no worsening chest pain or shortness of breath
Leukopenia likely related to sepsis and antibiotics
LFTs and bilirubin continue to improve
The natural history and pathophysiology of biliary and stone disease was discussed. Anatomy was reviewed. Workup thus far was reviewed. Pictorial drawings discussing his current clinical situation were reviewed. Role of cholecystectomy in
preventing future episodes of choledocholithiasis and cholecystitis were discussed. Plan for a laparoscopic cholecystectomy with cholangiogram. The procedure itself, as well as the risks, benefits, and alternatives was discussed. Specifically, we
discussed the risks of bleeding, infection, injury to surrounding structures (bowel, bile ducts), CBD injury, need for open procedure. Typical post procedure recovery was discussed. All questions answered. Consent signed.
-- Laparoscopic cholecystectomy with IOC
-- NPO, IVF per Hospitalist
-- Abx: Zosyn
-- Isabella-operative management of HR and clearance for OR per Cardiology and Hospitalist
Subjective Data
-
Date of Service: May 20, 2024
Denies worsening abdominal pain. Issues with A-fib and RVR overnight after scrambling to have a BM. Denies any chest pain or shortness of breath. No fevers. Does report worsening issues with diarrhea over the past 2 weeks.
Objective Data
-
Intake and Output
05/19/24 05/20/24 05/21/24
06:59 06:59 06:59
Intake Total 1340 / 1340 720 / 720
Output Total 750 / 750 850 / 850
Balance 590 / 590 -130 / -130
Intake:
Oral fluids 840 / 840 720 / 720
IV fluids (Total) 500 / 500
Output:
Urine, Voided 750 / 750 850 / 850
Other:
Number of approximated MODERATE 2
amounts of urine
Number of approximated LARGE 5
amounts of urine
Vital Signs
Temp Pulse Resp BP Pulse Ox
99.1 F 122 18 136/86 98
05/20/24 03:53 05/20/24 06:25 05/20/24 03:53 05/20/24 06:25 05/20/24 03:53
Lab Results
05/20/24 04:24
05/20/24 04:24
Calcium 9.0 mg/dl (8.4-10.2) 05/20/24 04:24
Total Bilirubin 2.5 mg/dl (0.2-1.3) H 05/20/24 04:24
Direct Bilirubin Cancelled 05/19/24 06:00
AST 58 U/L (17-59) 05/20/24 04:24
ALT 181 U/L (0-50) H 05/20/24 04:24
Alkaline Phosphatase 152 U/L (38-126) H 05/20/24 04:24
Total Protein 5.9 g/dl (6.3-8.2) L 05/20/24 04:24
Albumin 3.7 g/dl (3.5-5.0) 05/20/24 04:24
Physical Exam
-
Gen: NAD
Abd: soft, minimal tenderness in upper abdomen, ND/obese, non-peritoneal, prior incisions well healed
--- NOTE | 2024-05-20 10:08 | CON.CAR ---
Addendum entered and electronically signed by Gustabo Mena MD 05/20/24 11:24:
I saw and examined the patient.
The CUSTOMER OPERATIONS INTERN or PA's note was reviewed and I agree with the note.
Comment: General: Well developed, well nourished in NAD.
Neck: Supple, no JVD, HJR, carotids +2 B/L, no bruits bilaterally.
Heart: Non displaced PMI, RRR, no murmurs, No S3, S4, no rubs.
Lungs: Clear to auscultation bilaterally, no wheeze, rhonchi, rubs bilaterally,
normal expiratory phase.
Extremities: No clubbing, cyanosis or edema bilaterally.
Neuro: Grossly nonfocal, awake, alert and oriented x3.
Edil has history of hypertension, diabetes, hyperlipidemia, atypical CML, left adrenal adenoma. He presented with nausea and vomiting found to have abnormal LFTs and E. coli bacteremia with cholangitis. Cardiology is consulted for new onset A-fib
which spontaneously converted to sinus rhythm.
Will continue Lopressor. Will check echocardiogram. Okay for surgery without further testing if echo cannot be performed before procedure. We discussed anticoagulation postop and he is reluctant to consider at the present time. Discussed with
hematology as well. Also updated general surgery
Original Note:
Consultation
Consultation Request
Date/Time Consultation Performed: 05/20/24
Requesting Provider: Dr. Burkett
Performing Provider: Carolina Meek PA-C for Dr. Mena
Reason for Consultation: afib, pre op
Medical History
-
Chief Complaint: N/V
History of Present Illness:
Patient is an 78 yo M with PMH of HTN, HLD, DM2, atypical CML (on gilteritinib), L adrenal adenoma who presented to with complaints of N/V. He was found to have elevated LFTs and e.coli bacteremia. He underwent MRCP which was negative for
choledocholithiasis. He was seen by general surgery and planned for lap chase today. Cardiology consulted as overnight patient went into afib with RVR, new diagnosis for patient. He was asymptomatic. He reports he was agitated as he was 'fighting
with the IV pole in the bathroom' and had diarrhea. He was in afib from 5:30PM 05/19 until spontaneously converted to SR ~9AM this morning. Cardiology consulted for new afib and preop eval. He denies CP, SOB. Reports he walks his dog about 1 mile
each morning. Had treadmill stress test 2016 which was low risk.
PMH:
HTN
HLD
DM2
Atypical CML
L adrenal adenoma
Remote former smoker
Past Medical History
Past Medical History: Other (in HPI)
Social History
Tobacco: Former Smoker (remote)
Alcohol: Occasional
Personal:
Living: With Family
Employment: Retired (mostly, occasionally reports he works)
Family History
Family History: CAD (father)
Allergies / Home Medications
Allergy/AdvReac Type Severity Reaction Status Date / Time
Vgvnuao-SKX-XjT Reductase AdvReac Mild muscle Verified 05/17/24 13:50
Inhibitor cramps
[Mafxjnk-Sup-Agb Reductase
Inhibitor]
�Medication �Instructions �Recorded �Confirmed �Type
metformin 1,000 mg tablet,extended 1,000 mg PO BID Diabetes 03/27/17 05/17/24 History
release 24hr (osmotic)
gilteritinib 40 mg tablet 120 mg PO HS Cancer 12/22/22 05/17/24 History
glimepiride 2 mg tablet 2 mg PO DAILY Diabetes 12/22/22 05/17/24 History
magnesium 250 mg tablet 1,000 mg PO BID Electrolyte 12/22/22 05/17/24 History
Repletion
potassium citrate 10 mEq (1,080 10 meq PO BID Electrolyte Repletion 10/18/23 05/17/24 History
mg) tablet,extended release
clobetasol 0.05 % topical cream 1 applic topical BID eczema 05/17/24 05/17/24 History
naproxen sodium 220 mg tablet 220 mg PO [id number] PRN mild pain 05/17/24 05/17/24 History
(Aleve)
omeprazole 20 mg capsule,delayed 20 mg PO DAILY Gastrointestinal 05/17/24 05/17/24 History
release Issue
psyllium 1 packet PO BID Gastrointestinal 05/17/24 05/17/24 History
Issue
Review of Systems
-
History Source: Patient
All other systems: Negative unless noted
Physical Exam
Vital Signs
Temp Pulse Resp BP Pulse Ox
98.1 F 108 18 130/80 97
05/20/24 06:52 05/20/24 08:43 05/20/24 06:52 05/20/24 08:43 05/20/24 08:15
Lab Results
05/20/24 04:24
05/20/24 04:24
Physical Exam
General: No Apparent Distress and Comfortable
HEENT: Normocephalic, Anicteric and Moist Mucous Membranes
Respiratory: Clear and Non Labored Respirations
Cardiac: S1/S2 and Regular Rhythm
GI: Soft and Normal Bowel Sounds
Musculoskeletal: No Clubbing, No Cyanosis and No Edema
Skin: Warm and Dry
Neuro: AO x 3
Impression / Plan
-
Primary Milling/Polishing Operator: last seen [place] [address] Johnson
Assessment:
Presentation with N/V
Concern for acute cholangitis
Elevated LFTs
E.coli bacteremia
Paroxysmal atrial fibrillation, new diagnosis, spontaneously converted to SR 9AM 05/20
HTN
HLD
DM2, hgbA1c 6.1% per patient
Atypical CML
L adrenal adenoma
Remote former smoker
treadmill stress test 04/2017: low risk at 7.5 METS
Plan:
-Patient with atypical CML, hypertension, hyperlipidemia, type 2 diabetes presented with nausea vomiting found to have elevated LFTs and E. coli bacteremia. Concern for acute cholangitis and plan for lap chase today
-Went into A-fib with RVR last evening, new diagnosis. Patient asymptomatic. Fortunately he spontaneously converted to sinus rhythm around 9 AM today.
-Continue p.o. Lopressor 25 mg twice daily. follow on tele perioperatively
-ordered urgent echo
-Check TSH
-[id number] score of 4 for age, hypertension, diabetes. Discussed initiation of anticoagulation postsurgically when able. He is concerned as he frequently gets nicks and cuts on his hands and is concerned about bleeding. He also reports he gets
injections in both eyes every 10 weeks through [facility] eye office in [place] due to concern for bleeding. d/w heme/onc - no issues from their standpoint with initiation of OAC
-EKG in sinus rhythm without acute ischemic changes, stable compared to prior. No CP, SOB.
-He is felt to be moderate cardiovascular risk for OR
-d/w nursing. d/w gen surg via TT
Data Reviewed
-
EKG: Tracing Personally Visualized and interpreted
Medical Tests (Nuc Med, Echo etc): Report Reviewed by me
Labs: Labs Reviewed by me
Old Records: Reviewed
--- NOTE | 2024-05-20 10:24 | W.PN.HOSP.TC ---
Today's Communication/Plan
-
cont Lopressor
for OR today
cardio consult pending
Assessment / Plan
Assessment / Plan
78yo M with PMHX of DM, leukemia, Hx of appendicitis came with chills, found transaminitis and e.coli bacteremia, concern for cholangitis with E.coli bacteremia, planned for cholecystectomy on 05/20/24 and also developed new onset Afib
A/P:
#Bacteremia with transaminitis and direct bilirubinemia
#Cholelithiasis
Since LFT resolving - possibly patient passed gall stone
GenSx plan for cholecystectomy on 05/20/24
US without CBD dilation or gall bladder wall thickening
Cholelithiasis seen
MRCP showed no CBD dilation
ZOsyn and pending further ID recommendations
repeat Bcx NTD
GI consult
follow LFT
#New onser Afib
most likely combination of infection, diarrhea and anxiety
Lopressor
telemetry
Defer anticoagulation to cardiology eval and if needed -plan to start postOP when ok by GenSx
#Diarrhea
most likely 2/2 Abx
monitor, plan for Probiotics
If continuing - might need c.diff test
#DM type 2 with neuropathy
Accuchecks, Insulin SS, DM diet
#Non-obstructive nephrolithiasis
#L adrenal adenoma
outpatient f/u for hormone production advised
#CML
#Pancytopenia
cont to follow with established specialists
Oncology consult for further recommendations for outpatient meds
#Recent biopsy of scalp lesion
follow up with projects manager
DVT ppx SCDs
Full code
I have spent at least 58min reviewing chart, test results, communication with consultants and direct patient care
Anticipated Discharge: > 48 hours
Subjective/Interval History
-
Date of Service: May 20, 2024
Objective Data
-
Labs:
Laboratory Results
05/20/24
04:24
WBC 2.6 L
Hgb 11.9 L
Hct 35.4 L
Plt Count 122 L
Sodium 140
Potassium 4.0
Chloride 106
Carbon Dioxide 25
BUN 15
Creatinine 1.0
Glucose 145 H
Calcium 9.0
Total Bilirubin 2.5 H
AST 58
ALT 181 H
Alkaline Phosphatase 152 H
Vital Signs:
Vital Signs
Temp Pulse Resp BP Pulse Ox
98.1 F 108 18 130/80 97
05/20/24 06:52 05/20/24 08:43 05/20/24 06:52 05/20/24 08:43 05/20/24 08:15
I&O
05/19/24 05/20/24 05/21/24
06:59 06:59 06:59
Intake Total 1340 / 1340 720 / 720
Output Total 750 / 750 850 / 850
Balance 590 / 590 -130 / -130
Review of Systems
-
History Source: Patient
All other systems: Reviewed and negative
Abdomen/GI: Reports Diarrhea
Physical Exam
-
General: No Apparent Distress
HEENT: Normocephalic
Respiratory: Clear to Auscultation
Cardiac: Irregular Rhythm and Tachycardic
GI: Soft, Nontender and Nondistended
Skin: Warm
Neuro: Awake, Alert, Oriented and AO x 3
Psych: Calm
--- NOTE | 2024-05-20 11:25 | W.PN.ONC ---
Today's Communication / Plan
-
Continue Zosyn
Monitor LFTs and blood counts
Continue to hold Gilteritinib
Scheduled for OR today for laparoscopic cholecystectomy
Impression
Impression
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
# Elevated LFTs, rule out acute cholecystitis/cholelithiasis
- LFTs downtrending
- GI consulted, no evidence for acute cholecystitis/cholelithiasis on MRCP and abdominal CT
- No leukocytosis on this admission
- Patient currently not febrile
- Likely transient biliary obstruction, less likely medication-induced transaminitis
- Surgery consulted, patient scheduled for laparoscopic cholecystectomy today
- Hep B/C negative
# Atypical CML
- Was on gilteritinib, continue to hold
- Outpatient follow-up for treatment plans
# E. coli bacteremia
- ID consulted, final culture results show resistance to amoxicillin, ampicillin, cefazolin
- Continue Zosyn
# Normocytic anemia
- Chronic, hemoglobin up to 11.9 today
- Likely in the setting of acute inflammation
- Monitor Hb levels
# New onset A-fib
- Likely multifactorial in the setting of infection, diarrhea
- Cardiology consulted
- Continue Lopressor
# Tho-mdqsuwf-moltgnlqn diabetes
- Continue medications
# History of colon polyps
- No symptoms
- Colonoscopy scheduled in 2024
Subjective/Objective
Subjective/Objective
Vital Signs:
Vital Signs
Temp Pulse Resp BP Pulse Ox
98.1 F 108 18 130/80 97
05/20/24 06:52 05/20/24 08:43 05/20/24 06:52 05/20/24 08:43 05/20/24 08:15
Lab Results:
Laboratory Data
WBC 2.6 10^3/uL (4.8-10.8) L 05/20/24 04:24
Hgb 11.9 g/dL (13.0-18.0) L 05/20/24 04:24
Plt Count 122 10^3/uL (130-400) L 05/20/24 04:24
PT 14.8 Sec (11.4-14.6) H 05/18/24 11:28
INR 1.18 05/18/24 11:28
eGFR > 60.00 05/20/24 04:24
[2024-05-20 12:10] LABS: Glucose - Point of Care 137 mg/dl (70-99)
--- NOTE | 2024-05-20 12:17 | PN.CDI ---
Addendum entered and electronically signed by Andrés Burkett MD 05/20/24 14:03:
no sepsis
Original Note:
CDI
- -
CDI:
Physician Documentation Request
Admit Date: 05/17/24 18:55
Dear Doctor Kwadwo,
Please review the following and provide your response in the progress notes.
Clinical Indicators:
Surgery, PN, 05/20
#Leukopenia likely related to sepsis and antibiotics
#LFTs and bilirubin continue to improve
PN, 05/20
#...transaminitis and e.coli bacteremia,
#concern for cholangitis with E.coli bacteremia,
#...planned for cholecystectomy on 05/20/24
#...and also developed new onset Afib
#Bacteremia with transaminitis and direct bilirubinemia
#Cholelithiasis
Selected Entries
05/17/24
22:17 05/17/24
22:20
Temp 101 F H
Pulse 100
Laboratory Tests
05/19/24 05/20/24
05:16 04:24
WBC 3.3 L 2.6 L
Laboratory Tests
05/17/24 05/18/24 05/19/24
15:53 05:24 05:16
Total Bilirubin 3.5 H 4.1 H 3.1 H
Direct Bilirubin 2.5 H
AST 614 H* 287 H 112 H
ALT 486 H 438 H 258 H
Alkaline Phosphatase 285 H 182 H 150 H
05/20/24
04:24
Total Bilirubin 2.5 H
Direct Bilirubin
AST
ALT 181 H
Alkaline Phosphatase 152 H
Please clarify which of the following most accurately describes the status of the patient's infection:
Sepsis/Severe Sepsis, POA
Localized Infection Only, Without Systemic Illness
- indicate the site/source, such as UTI, pneumonia etc.
Bacteremia
- Abnormal lab finding only, does not indicate systemic illness
Other(please specify)
Sepsis
- Systemic manifestations of infection, with 2 or more SIRS criteria which include:
- Fever >100.4 degrees F or hypothermia < 96.8 degrees F
- Leukocytosis - WBC > 12,000 or leukopenia - WBC < 4,000 or > 10% bands
- Tachycardia > 90 beats per minute
- Tachypnea - RR > 20 breaths per minute or PaCO2 , 32mmHg
Source: Merck Manual 2013
- Indicate the known or suspected organism
- Indicate the known or suspected underlying infection, such as UTI, pneumonia or cellulitis
Severe Sepsis
- Sepsis with associated acute organ dysfunction, such as renal or respiratory failure
- Documentation should indicate the association between the sepsis and the organ dysfunction
Use of terms such as suspected, likely, concern for, or probable (associated with a specific diagnosis that is being evaluated, monitored, or treated as if it exists) are acceptable and can be coded in the inpatient setting, when documented at the
time of discharge.
Thank you,
Lili Zambrano RN BSN CCDS
CDI Specialist
please contact via tiger text
Please use your independent medical judgment in providing your response.
[2024-05-20 12:53] LABS: Free T4 1.04 ng/dl (0.78-2.19)
[2024-05-20 13:07] LABS: TSH 1.81 uIU/ml (0.47-4.68)
--- NOTE | 2024-05-20 15:12 | CM ---
CM met with patient earlier today. He lives with his in a one story home with 1 step entry step. 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 No DME or in-home services. No
psychiatric hospitalizations.
Edil is currently off the floor for cholecycstecomy.
Anticipate discharge to home with no needs pending post-op course.
PCP: Dr. Lucia Baptiste
Pharmacy:[facility] .
Edil is currently off the floor for cholecycstecomy.
Anticipate discharge to home with no needs pending post-op course.
[2024-05-20 15:16] LABS: Glucose - Point of Care 129 mg/dl (70-99)
--- NOTE | 2024-05-20 16:39 | W.IMMPOSTOP ---
Addendum entered and electronically signed by Joe Magana MD 05/20/24 16:52:
The assistance of LUCI Soto was required due to the complexity of the procedure. During the procedure she assisted with retraction, resection, and closure of the wound.
Original Note:
Surgical Immed Post Op Note
-
Primary Surgeon: Izzy
Assisting Surgeon: LUCI Burroughs
Pre-op Diagnosis: Choledocholithiasis
Post-op Diagnosis: Choledocholithiasis
Procedure Performed: Laparoscopic cholecystectomy with IOC
Anesthesia Type: General
Specimen / Cultures:
1. Gallbladder
Estimated Blood Loss: 3 cc
Complications: None
Operative Findings:
1. Distended and flaccid GB, small stones and sludge, intrahepatic and medial, severe fatty liver disease/nodular liver
2. IOC with no filling defects and anatomy confirmed
3. Artery and duct taken with clips
[2024-05-20 17:10] LABS: Glucose - Point of Care 175 mg/dl (70-99)
--- NOTE | 2024-05-20 17:15 | W.PN.UPDATE ---
Update Note
Progress Note Update
Patient in the OR during rounds
Chart reviewed and plans as follows:
E. coli bacteremia
Suspected transitory biliary obstruction
Transaminitis
Elevated bilirubin
NIDDM
CML (on chemotherapy; recent treatment last week)
MICKEY
Nephrolithiasis
Recommendations:
Continue with Zosyn today, tomorrow will likely transition to ciprofloxacin 500 mg PO BID and metronidazole 500 mg PO BID both for 5 more days
Note leukopenia can be attributed to recent chemotherapy and is expected to progress
for cholecystectomy and cholangiography today
QTc 475
Trend LFTs and bilirubin for improvement.
AW
--- NOTE | 2024-05-20 18:08 | W.PN.UPDATE ---
Update Note
Progress Note Update
Status post laparoscopic cholecystectomy with IOC today. IOC negative for any filling defect. No role for ERCP.
Follow-up with Dr. Mobley as outpatient.GI will s/o. please call us back if any questions
[2024-05-20] MEDS: TYLENOL 650 MG PO (20:05)
[2024-05-20 21:18] LABS: Glucose - Point of Care 305 mg/dl (70-99)
[2024-05-21] MEDS: TYLENOL PO ×2 (01:26→05:04)
[2024-05-21] MEDS: LR IV (03:00)
[2024-05-21 03:37] VITALS: BP 127/56
[2024-05-21 05:46] LABS: % Basophils 0.7 % (0-2); % Lymphocytes 12.1 % (20.5-51.1); % Monocytes 4.5 % (1.7-9.3); % Neutrophils 81.7 % (42.2-75.2); Absolute Lymphocytes 0.4 10^3/uL (1.2-3.4); Absolute Monocytes 0.1 10^3/uL (0.1-0.6); Absolute Neutrophils 2.4 10^3/uL (1.4-6.5); Hematocrit 30.9 % (39.0-52.0); Hemoglobin 10.3 g/dL (13.0-18.0); Mean Corp Hgb Conc. 33.3 g/dL (33.0-37.0); Mean Corpuscular Hgb 29.8 pg (27.0-31.0); Mean Corpuscular Volume 89.3 fL (80.0-94.0); Mean Platelet Volume 11.5 fL (7.4-10.4); Nucleated Red Blood Cells % 0 % (-); Platelet Count 131 10^3/uL (130-400); Red Blood Cell Count 3.46 10^6/uL (4.70-6.10); White Blood Cell Count 2.9 10^3/uL (4.8-10.8)
[2024-05-21 06:08] LABS: ALT (SGPT) 152 U/L (0-50); AST (SGOT) 67 U/L (17-59); Albumin 3.6 g/dl (3.5-5.0); Alkaline Phosphatase 133 U/L (38-126); Blood Urea Nitrogen 20 mg/dl (9-20); Calcium 8.8 mg/dl (8.4-10.2); Carbon Dioxide 26 mmol/L (22-30); Chloride 104 mmol/L (98-107); Estimated Creatinine Clearance 70 ml/min; Glucose 211 mg/dl (70-99); Sodium 139 mmol/L (135-145); Total Bilirubin 1.6 mg/dl (0.2-1.3); Total Protein 5.7 g/dl (6.3-8.2); eGFR > 60.00
[2024-05-21 06:13] LABS: Potassium 4.4 mmol/L (3.5-5.1)
[2024-05-21 08:00] VITALS: BP 111/74
[2024-05-21 08:02] LABS: Glucose - Point of Care 210 mg/dl (70-99)
--- NOTE | 2024-05-21 08:33 | W.PN.ONC ---
Today's Communication / Plan
-
Continue antibiotics, possible transition to oral
Continue to monitor CBC and LFT
Continue to hold Gilteritinib
Impression
Impression
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
# Elevated LFTs, rule out acute cholecystitis/cholelithiasis
- LFTs downtrending
- Surgery following, status post laparoscopic cholecystectomy and IOC (no filling defect seen)
- GI following, no evidence for acute cholecystitis/cholelithiasis on MRCP and abdominal CT
- Patient currently not febrile
- Likely transient biliary obstruction
- Surgery following, status post laparoscopic cholecystectomy and IOC (no filling defect seen)
- Hep B/C negative
# Atypical CML
- Was on gilteritinib, continue to hold
-Anticipate further drop in WBC in the days ahead secondary to treatment next week
- Outpatient follow-up for treatment plans
# E. coli bacteremia
- ID following, final culture results show resistance to amoxicillin, ampicillin, cefazolin
- On Zosyn, possible transition to oral antibiotics today per ID
# Normocytic anemia
- Chronic
- Monitor Hb levels
# New onset A-fib
- Likely multifactorial in the setting of infection, diarrhea
- Cardiology following, initiation of anticoagulation postsurgically
- Continue Lopressor
# Uqf-vqzyncb-owazbjqct diabetes
- Continue medications
# History of colon polyps
- No symptoms
- Colonoscopy scheduled in 2024
Subjective/Objective
Subjective/Objective
Vital Signs:
Vital Signs
Temp Pulse Resp BP Pulse Ox
97.6 F 57 18 127/56 94
05/21/24 03:37 05/21/24 03:37 05/21/24 03:37 05/21/24 03:37 05/21/24 03:37
Lab Results:
Laboratory Data
WBC 2.9 10^3/uL (4.8-10.8) L 05/21/24 05:25
Hgb 10.3 g/dL (13.0-18.0) L 05/21/24 05:25
Plt Count 131 10^3/uL (130-400) 05/21/24 05:25
PT 14.8 Sec (11.4-14.6) H 05/18/24 11:28
INR 1.18 05/18/24 11:28
eGFR > 60.00 05/21/24 05:25
[2024-05-21] MEDS: LOPRESSOR 25 MG PO (08:48)
[2024-05-21] MEDS: TYLENOL 650 MG PO ×2 (08:48→12:34)
[2024-05-21] MEDS: NOVOLOG FLEXPEN-LOW RESISTANCE 2 UNITS SC ×2 (08:54→12:35)
--- NOTE | 2024-05-21 09:14 | W.PN.GS2 ---
Today's Communication / Plan
-
-- DC instructions updated, OK for DC from surgical standpoint, call with any questions or concerns
Assessment / Plan
-
Patient is an 78 yo M p/w likely choledocholithiasis
POD#1 s/p laparoscopic cholecystectomy with IOC
AVSS, no tachycardia noted overnight
Labs with downtrending bilirubin and LFTs
Recovering well. No major postoperative concerns. Okay for discharge from surgical standpoint if tolerates diet and pain controlled. Management and DC based on recent episode of A-fib per Hospitalist and Cardiology.
-- LFD
-- Pain control: Tylenol, Toradol, Oxycodone
-- HLIV
-- Abx: Zosyn, none need from surgical standpoint, may need short course given bacteremia defer to Hospitalist
-- Afib with RVR: on Metoprolol, further management per Cardiology, no PO therapeutic anticoagulation for 48 hours post-op, OK for Hep gtt 24 hrs post-op
-- DVT: Lovenox
-- DC instructions updated, OK for DC from surgical standpoint, call with any questions or concerns
Subjective Data
-
Date of Service: May 21, 2024
No major complaints. Pain well-controlled. No nausea or vomiting. Denies any chest pain or shortness of breath. Afebrile.
Objective Data
-
Intake and Output
05/20/24 05/21/24 05/22/24
06:59 06:59 06:59
Intake Total 720 / 720 135 / 135
Output Total 850 / 850 300 / 300
Balance -130 / -130 -165 / -165
Intake:
Oral fluids 720 / 720 35 / 35
IV fluids (Total) 100 / 100
NS 100 / 100
Output:
Urine, Voided 850 / 850 300 / 300
Other:
Number of approximated LARGE 5
amounts of urine
Vital Signs
Temp Pulse Resp BP Pulse Ox
98.6 F 62 18 111/74 98
05/21/24 08:00 05/21/24 08:48 05/21/24 08:00 05/21/24 08:48 05/21/24 08:00
Lab Results
05/21/24 05:25
05/21/24 05:25
Calcium 8.8 mg/dl (8.4-10.2) 05/21/24 05:25
Total Bilirubin 1.6 mg/dl (0.2-1.3) H 05/21/24 05:25
Direct Bilirubin Cancelled 05/19/24 06:00
AST 67 U/L (17-59) H 05/21/24 05:25
ALT 152 U/L (0-50) H 05/21/24 05:25
Alkaline Phosphatase 133 U/L (38-126) H 05/21/24 05:25
Total Protein 5.7 g/dl (6.3-8.2) L 05/21/24 05:25
Albumin 3.6 g/dl (3.5-5.0) 05/21/24 05:25
Physical Exam
-
Gen: NAD
Abd: soft, NT/ND, non-peritoneal, incisions c/d/i - no erythema, ecchymosis or drainage
[2024-05-21] MEDS: ZOSYN 50 IV (09:56)
[2024-05-21 11:37] LABS: Glucose - Point of Care 229 mg/dl (70-99)
--- NOTE | 2024-05-21 12:05 | W.PN.HOSP.TC ---
Today's Communication/Plan
-
pending final ID assessment possible d/c if oral Abx
Assessment / Plan
Assessment / Plan
78yo M with PMHX of DM, leukemia, Hx of appendicitis came with chills, found transaminitis and e.coli bacteremia, concern for cholangitis with E.coli bacteremia, s/p cholecystectomy on 05/20/24 with small stones, distended and flaccid gall bladder
and also developed new onset paroxysmal Afib, later converted to sinus, declined AC as per cardiology. ID recommended cipro/flagyl upon d/c and oncology is approved to cont current CML treatment too.
A/P:
#Bacteremia with transaminitis and direct bilirubinemia
#Cholelithiasis
Since LFT resolving - possibly patient passed gall stone
GenSx: cholecystectomy on 05/20/24 with small stones, distended and flaccid gall bladder
US without CBD dilation or gall bladder wall thickening
MRCP showed no CBD dilation
ZOsyn and pending further ID recommendations, possible plan for cipro/flagyl
repeat Bcx NTD
GI consult
follow LFT
#New onset Afib
most likely combination of infection, diarrhea and anxiety
Lopressor
telemetry
As per cardio: patient is reluctant to start anticoagulation at this time
#Diarrhea
most likely 2/2 Abx
monitor, plan for Probiotics
If continuing - might need c.diff test
#DM type 2 with neuropathy
Accuchecks, Insulin SS, DM diet
#Non-obstructive nephrolithiasis
#L adrenal adenoma
outpatient f/u for hormone production advised
#CML
#Pancytopenia
cont to follow with established specialists
Oncology consult recommended to cont Gilteretinib upon d/c
#Aortic root dilation 4.0cm
outpatient monitoring q6m
#Recent biopsy of scalp lesion
follow up with scheduling administrator
DVT ppx SCDs
Full code
I have spent at least 38min reviewing chart, test results, communication with consultants and direct patient care
Anticipated Discharge: Within 24 hours
Subjective/Interval History
-
Date of Service: May 21, 2024
Objective Data
-
Labs:
Laboratory Results
05/21/24
05:25
WBC 2.9 L
Hgb 10.3 L
Hct 30.9 L
Plt Count 131
Sodium 139
Potassium 4.4
Chloride 104
Carbon Dioxide 26
BUN 20
Creatinine 1.0
Glucose 211 H
Calcium 8.8
Total Bilirubin 1.6 H
AST 67 H
ALT 152 H
Alkaline Phosphatase 133 H
Vital Signs:
Vital Signs
Temp Pulse Resp BP Pulse Ox
98.6 F 62 18 111/74 98
05/21/24 08:00 05/21/24 08:48 05/21/24 08:00 05/21/24 08:48 05/21/24 08:40
I&O
05/20/24 05/21/24 05/22/24
06:59 06:59 06:59
Intake Total 720 / 720 135 / 135
Output Total 850 / 850 300 / 300
Balance -130 / -130 -165 / -165
Review of Systems
-
History Source: Patient
All other systems: Reviewed and negative
Physical Exam
-
General: No Apparent Distress
HEENT: Normocephalic
Cardiac: Regular Rhythm
Neuro: Awake, Alert, Oriented and AO x 3
Psych: Calm
[2024-05-21 12:11] VITALS: BP 146/68
--- NOTE | 2024-05-21 14:08 | W.DCSUMMARY ---
Addendum entered and electronically signed by Andrés Burkett MD 05/21/24 14:30:
as per communication with cardiology: patient now agreeable with Eliquis 5mg BID. Recommended to start with PM dose on 05/22/24. Rx sent
Original Note:
Discharge Summary
Discharge Data
Date of Admission: 05/17/24
Date of Discharge: 05/21/24
-
Pending Results: Yes
Additional Pending Results:
OR pathology
Hospital Course
78yo M with PMHX of DM, leukemia, Hx of appendicitis came with chills, found transaminitis and e.coli bacteremia, concern for cholangitis with E.coli bacteremia, s/p cholecystectomy on 05/20/24 with small stones, distended and flaccid gall bladder
and also developed new onset paroxysmal Afib, later converted to sinus, declined AC as per cardiology. ID recommended cipro/flagyl upon d/c and oncology is approved to cont current CML treatment too.
Medically stable for d/c. I have spent at least 39min preparing d/c
Patient was managed for:
#Bacteremia with transaminitis and direct bilirubinemia
#Cholelithiasis
#New onset Afib
#Diarrhea
#DM type 2 with neuropathy
#Non-obstructive nephrolithiasis
#L adrenal adenoma
#CML
#Pancytopenia
#Aortic root dilation 4.0cm
#Recent biopsy of scalp lesion
Discharge Plan
-
Patient Disposition: Home (Routine Discharge)
Discharge Diagnosis/Procedures: Laparoscopically cystectomy with cholangiogram, atrial fibrillation
Condition: Good
Diet: Regular and Low Fat
Additional Diets: If issues with bloating, crampy abdominal pain, or diarrhea follow a low-fat diet
Activity: No strenuous activity
Additional Activity: No heavy lifting (>20 lbs) or strenuous activities for 2 weeks postoperatively
Driving Restrictions: No driving if too sore or taking narcotics
Bathing Restrictions: OK to Shower
Wound Care: Keep incisions clean and dry. Glue will flake off in 2 to 3 weeks. Stitches will dissolve. Use ice to the abdomen to reduce any bruising or swelling
Activity Restrictions/Additional Instructions:
Call for fevers (>100.5), nausea or vomiting, worsening abdominal pain, yellowing of the eyes or skin
Referrals:
Elaina Whelan PA-C [Specified Professional Personl] - 06/16/24 9:20 am (You have a cardiology follow-up appointment at the [facility], [phone]. Please call with questions)
Joe Magana MD [Active] - in two to four weeks
Lucia Baptiste DO [Family Provider] -
Alvin Acosta DO [Active] - in one to two weeks
Additional Discharge Medication Instructions: Restart Gilteritinib after completion of antibiotics on 05/26/24
Prescriptions:
New
acetaminophen 325 mg tablet
650 mg PO Q4HPRN PRN (Reason: mild pain) Qty: 1 0RF
tramadol 50 mg tablet
50 mg PO Q6HPRN PRN (Reason: severe pain/breakthrough pain) Qty: 10 0RF
ciprofloxacin HCl 500 mg tablet
500 mg PO Q12H Qty: 10 0RF
metronidazole 500 mg tablet
500 mg PO Q12H Qty: 10 0RF
metoprolol tartrate 25 mg Tablet
25 mg PO BID Qty: 60 0RF
Continued
metformin 1,000 MG tablet extended release 24hr
1,000 mg PO BID
glimepiride 2 mg Tablet
2 mg PO DAILY
magnesium 250 mg Tablet
1,000 mg PO BID
potassium citrate 10 mEq (1,080 mg) tablet extended release
10 meq PO BID
psyllium Packet
1 packet PO BID
clobetasol 0.05 % Cream
1 applic TOPICAL BID
naproxen sodium [Aleve] 220 mg Tablet
220 mg PO [id number] PRN (Reason: mild pain)
omeprazole 20 mg Capsule,Delayed Release(Dr/Ec)
20 mg PO DAILY
Held
gilteritinib 40 mg Tablet
120 mg PO HS
Hold Instructions: Resume on 04/25/24.
Discharge Orders:
Discharge Patient (As Directed); Ordered 05/21/24
Ordered By: Andrés Burkett
Discharge Date and Time
Print Language: MONGOLIAN
--- NOTE | 2024-05-21 14:37 | W.PN.CARDCBS ---
Addendum entered and electronically signed by Charly Ruelas MD 05/21/24 15:41:
I saw and examined the patient.
The Location Manager's note was reviewed and I agree with the note.
Comment: Briefly, 78-year-old man presenting with nausea and vomiting found to have acute cholangitis and is now status post lap chase 05/20/2024
Cardiology is consulted for newly identified atrial fibrillation, patient spontaneously converted yesterday and has been maintaining sinus rhythm on my review of telemetry
Continue metoprolol on discharge
Discussed risk/benefits of oral anticoagulation with the patient. CHADS2 Vasc of at least 4. He is agreeable to a trial of Eliquis 5mg BID. Per surgical team could be started tomorrow evening, 05/22.
Stable cardiac status
Outpatient cardiology follow-up arranged
Original Note:
Today's Communication / Plan
-
Continue Lopressor
Initiate Eliquis 5 mg twice daily as of 05/22 PM dose as recommended postsurgery
For discharge today
Outpatient cardiac follow-up arranged
Impression / Plan
-
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 Johnson
Assessment:
Presentation with N/V
Concern for acute cholangitis s/p lap chase 05/20/24
Elevated LFTs
E.coli bacteremia
Paroxysmal atrial fibrillation, new diagnosis, spontaneously converted to SR 9AM 05/20
HTN
HLD
DM2, hgbA1c 6.1% per patient
Atypical CML
L adrenal adenoma
Remote former smoker
treadmill stress test 04/2017: low risk at 7.5 METS
ECHO 05/20/24: EF 60 to 65%, no regional wall motion abnormalities noted, mild concentric LVH, MAC, trace MR, mild with peak/mean gradient 17/11 mmHg, KOSTAS 1.7 cm�, mild AR, mildly dilated aortic root
Plan:
-s/p lap chase 05/20
-Cardiology consulted for new diagnosis atrial fibrillation, paroxysmal. Patient asymptomatic. Remains in sinus rhythm with 1 very brief run of A-fib versus A. tach overnight
-Continue Lopressor 25 mg twice daily
-TSH WNL
-echo with results as above, EF preserved
-[id number] score of 4. discussed initiation of anticoagulation again today with patient. He is hesitant, but agreeable to start Eliquis. Per surgery recommendations, we will plan to initiate Eliquis 5 mg twice daily 05/21 1 PM dose.
Discussed with hospitalist via [place] text
-Outpatient cardiac follow-up arranged. Noted for discharge today
Progress Note - Wire Winding Machine Operator
Subjective
Date of Service: May 21, 2024
No chest pain, palpitations, or shortness of breath reported. Pain adequately controlled status post lap chase
Objective
Labs:
05/21/24 05:25
05/21/24 05:25
Labs
Hgb 10.3 g/dL (13.0-18.0) L 05/21/24 05:25
Hct 30.9 % (39.0-52.0) L 05/21/24 05:25
Plt Count 131 10^3/uL (130-400) 05/21/24 05:25
PT 14.8 Sec (11.4-14.6) H 05/18/24 11:28
INR 1.18 05/18/24 11:28
Sodium 139 mmol/L (135-145) 05/21/24 05:25
Potassium 4.4 mmol/L (3.5-5.1) 05/21/24 05:25
BUN 20 mg/dl (9-20) 05/21/24 05:25
Creatinine 1.0 mg/dL (0.7-1.3) 05/21/24 05:25
Glucose 211 mg/dl (70-99) H 05/21/24 05:25
Vital Signs and I&O:
Vital Signs
Temp Pulse Resp BP Pulse Ox
98.5 F 62 18 146/68 98
05/21/24 12:11 05/21/24 12:11 05/21/24 12:11 05/21/24 12:11 05/21/24 08:40
Vital Signs
Temp Pulse Resp BP Pulse Ox
98.5 F 62 18 146/68 98
05/21/24 12:11 05/21/24 12:11 05/21/24 12:11 05/21/24 12:11 05/21/24 08:40
Intake & Output
05/19/24 05/20/24 05/21/24 05/22/24
07:59 07:59 07:59 07:59
Intake Total 1340 / 1340 720 / 720 135 / 135
Output Total 750 / 750 850 / 850 300 / 300
Balance 590 / 590 -130 / -130 -165 / -165
--- NOTE | 2024-05-21 15:20 | CM ---
CM me with Edil at bedside this afternoon. He is feeling well and looking forward to going home today. His will pick him up to go home.
Plan: Discharge to home with no needs.
== END 2024-05-21 16:15 | disposition home or self-care (01) | DRG 418 ==
LOC: 4 EAST ACU 18:55
PROVIDERS: Radiology Diagnostic Radiology; Surgery; ADMITTING PHYSICIAN Internal Medicine; ATTENDING PHYSICIAN Internal Medicine; CONSULT PHYSICIAN Internal Medicine Gastroenterology; CONSULT PHYSICIAN Internal Medicine Infectious Disease; CONSULT PHYSICIAN Surgery; EMERGENCY PHYSICIAN Emergency Medicine; FAMILY PHYSICIAN Family Medicine; OTHER PHYSICIAN Internal Medicine Cardiovascular Disease; OTHER PHYSICIAN Internal Medicine Hematology & Oncology
PROC: BF502Z0 Other Imaging of Bile Ducts using Fluorescing Agent, Intraoperative (ICD-10-PCS; 2024-05-20)
PROC: 0FT44ZZ Resection of Gallbladder, Percutaneous Endoscopic Approach (ICD-10-PCS; 2024-05-20)
DX: K80.20 Calculus of gallbladder without cholecystitis without obstruction (principal); C92.10 Chronic myeloid leukemia, BCR/ABL-positive, not having achieved remission; D61.818 Other pancytopenia; R78.81 Bacteremia; K52.1 Toxic gastroenteritis and colitis; K83.09 Other cholangitis; I10 Essential (primary) hypertension; E11.40 Type 2 diabetes mellitus with diabetic neuropathy, unspecified; E66.09 Other obesity due to excess calories; G47.33 Obstructive sleep apnea (adult) (pediatric); E78.00 Pure hypercholesterolemia, unspecified; D35.02 Benign neoplasm of left adrenal gland; I48.0 Paroxysmal atrial fibrillation; I77.810 Thoracic aortic ectasia; K21.9 Gastro-esophageal reflux disease without esophagitis; Z79.84 Long term (current) use of oral hypoglycemic drugs; Z79.899 Other long term (current) drug therapy; N20.0 Calculus of kidney; K76.0 Fatty (change of) liver, not elsewhere classified; T36.8X5A Adverse effect of other systemic antibiotics, initial encounter; K22.70 Barrett's esophagus without dysplasia; Z87.891 Personal history of nicotine dependence; Z88.8 Allergy status to other drugs, medicaments and biological substances; Z90.49 Acquired absence of other specified parts of digestive tract; Z68.31 Body mass index [BMI] 31.0-31.9, adult; Z11.52 Encounter for screening for COVID-19
CPT/HCPCS: 88304; 71045; 74177; 74181; 74300; 76000; 76700; 80053; 81003; 82248; 82550; 82962; 83036; 83605; 83690; 84439; 84443; 85025; 85027; 85610; 86704; 86706; 86709; 86803; 87040; 87149; 87186; 87205; 87340; 87502; 87811; 93005; 93306; 96361; 96365; 99291; Q9967

== ENCOUNTER → 2024-09-19 06:39 | Outpatient (REF) | payer MEDICARE, OTHER, SELFPAY | LOC: PAVMRI 06:39 | PROVIDERS: ATTENDING PHYSICIAN Family Medicine | DX: M54.16 Radiculopathy, lumbar region (principal); M25.562 Pain in left knee | CPT/HCPCS: 72148; 73721 ==

== ENCOUNTER → 2025-05-04 07:02 | Outpatient (REF) | payer MEDICARE, OTHER, SELFPAY ==
[2025-05-04 07:25] VITALS: BP 142/55; BP_SYST 64
[2025-05-04 07:54] LABS: Hematocrit 21.5 % (39.0-52.0); Hemoglobin 7.0 g/dL (13.0-18.0); Mean Corp Hgb Conc. 32.6 g/dL (33.0-37.0); Mean Corpuscular Volume 99.5 fL (80.0-94.0); Red Cell Dist. Width 17.3 % (11.5-14.5)
[2025-05-04] MEDS: ATIVAN 0.5 MG PO (07:55)
[2025-05-04 07:57] LABS: INR 1.09; PT 14.4 Sec (11.4-14.6)
[2025-05-04 08:41] LABS: Platelet Count 46 10^3/uL (130-400)
[2025-05-04 08:56] LABS: Absolute Neutrophils -Man Diff 1.2 10^3/uL (1.4-6.5); Total Cells Counted 100
[2025-05-04 08:58] LABS: Hypochromasia 1+; Macrocytosis 1+
[2025-05-04 08:59] LABS: Normal RBC Morphology No; Platelets Checked Yes
[2025-05-04 09:03] VITALS: BP 127/59; BP_SYST 63
[2025-05-04 09:27] VITALS: BP 116/54
== END ==
LOC: RADI 07:02
PROVIDERS: Physician Assistant; ATTENDING PHYSICIAN Internal Medicine Hematology & Oncology
DX: C92.20 Atypical chronic myeloid leukemia, BCR/ABL-negative, not having achieved remission (principal)
CPT/HCPCS: 38222; 77012; 85025; 85610; 88305; 88311; 88312; 88313

== ENCOUNTER 2025-05-11 07:30 | Outpatient (RCR) | payer MEDICARE, OTHER, SELFPAY ==
[2025-05-11 08:04] VITALS: BP 146/50
[2025-05-11 08:57] VITALS: BP 113/41
[2025-05-11 09:15] VITALS: BP 125/40
[2025-05-11 10:52] VITALS: BP 115/60
== END 2025-05-22 23:59 | disposition home or self-care (01) ==
LOC: OID 07:30
PROVIDERS: ATTENDING PHYSICIAN Nurse Practitioner Adult Health
DX: C92.20 Atypical chronic myeloid leukemia, BCR/ABL-negative, not having achieved remission (principal); R53.81 Other malaise
CPT/HCPCS: 36415; 36430; 86850; 86900; 86901; 86920; 96523; P9016

== ENCOUNTER 2025-06-06 12:33 | Inpatient (IN) | payer MEDICARE, OTHER, SELFPAY ==
[2025-06-06] VITALS (78 sets, daily range): BP systolic 59–219; BP diastolic 33–190; PULSE 2–142; BMI 30.7; BMI 30.6
--- NOTE | 2025-06-06 10:18 | ED.GENMED ---
History of Present Illness
<Evan Vaughan PA-C - Last Filed: 06/06/25 11:42>
General
Chief Complaint: Abdominal Symptoms
Source: patient
Exam Limitations: none
Time Seen by Provider: 06/06/25 10:06
History of Present Illness
History of Present Illness:
79-year-old male with history of CML most recent treatment was yesterday presents via EMS with vomiting. He notes fatigue. He notes nausea. He denies abdominal chest pain or headache. No fevers. He does have a history of anemia as well. He
believes he recently received a transfusion. No other complaint
Past History
<Evan Vaughan PA-C - Last Filed: 06/06/25 11:42>
Past History
ED Past Medical History: NIDDM
ED Past Surgical History: None
Social History
Tobacco: Non-smoker
Alcohol: Occasional
Drug: None
Personal:
Living: with family
Phy Exam
<CHELI Chen Last Filed: 06/06/25 11:42>
Physical Exam
Physical Exam:
General: Ill-appearing male no acute respiratory distress
HEENT: Normal cephalic mucosa dry
Heart: Tachycardic and irregular
Lungs: Clear no wheeze
Abdomen is soft nontender
Extremities: No cyanosis
Course
<Evan Vaughan PA-C - Last Filed: 06/06/25 11:42>
Orders/Labs/Results
Orders:
Orders
06/06/25 10:09
Electrocardiogram (*1) Urgent
Reason for Study: Tachycardia
EKG- Treatment ONCE
06/06/25 10:15
0.9% Sodium Chloride 1000 ml [Nss] 1,000 ml IV BOLUS
Ondansetron Injectable [Zofran] 4 mg IV NOW STA
06/06/25 10:26
Complete Blood Count/With Diff Urgent
Comprehensive Metabolic Panel Urgent
Lactic Acid Urgent
Lipase Urgent
06/06/25 10:29
Urinalysis Reflex To Culture Urgent
CR Chest Portable - 1 View Urgent
Comment:
Reason For Exam: sepsis
Reason Study Needs to be Portable: Unable to Transport
06/06/25 10:32
PTT Urgent
Prothrombin Time Urgent
Blood Culture Q30M
MAT Source: Blood/Venous
Specimen Description:
Blood Culture Q30M
MAT Source: Blood/Venous
Specimen Description:
06/06/25 10:56
Blood Bank Products [* Blood Bank Products] Urgent
Blood Bank Products: *Packed RBC Leuko (PRBC's
Quantity: 1
Transfuse Today: Yes
Reason: Anemia
Cefepime HCl [Maxipime] 1,000 mg IV NOW STA
06/06/25 11:07
Sterile Water [Sterile Water For Injection] 10 ml .ROUTE .[facility]
06/06/25 11:09
Vancomycin [Vancocin] 2,000 mg 0.9% Sodium Chloride 500 ml [Nss] 500 ml IV NOW
06/06/25 11:15
Type+Screen Urgent
BBK Wristband Number:
06/06/25 11:16
0.9% Sodium Chloride 1000 ml [Nss] 1,000 ml IV BOLUS
Abnormal Lab Results
06/06/25 06/06/25
10:26 10:32
WBC 0.1 L* 10^3/uL
(4.8-10.8)
RBC 2.02 L 10^6/uL
(4.70-6.10)
Hgb 6.3 L* g/dL
(13.0-18.0)
Hct 18.2 L* %
(39.0-52.0)
MCH 31.2 H pg
(27.0-31.0)
RDW 16.1 H %
(11.5-14.5)
Plt Count 11 L* D 10^3/uL
(130-400)
MPV 13.9 H fL
(7.4-10.4)
Absolute Neuts (auto) 0.0 L* 10^3/uL
(1.4-6.5)
Absolute Lymphs (auto) 0.1 L 10^3/uL
(1.2-3.4)
Absolute Monos (auto) 0.0 L 10^3/uL
(0.1-0.6)
Neutrophils % 20.0 L %
(42.2-75.2)
Lymphocytes % 70.0 H %
(20.5-51.1)
Monocytes % 10.0 H %
(1.7-9.3)
PT 14.9 H Sec
(11.4-14.6)
Sodium 132 L mmol/L
(135-145)
Glucose 284 H mg/dl
(70-99)
Total Bilirubin 1.7 H mg/dl
(0.2-1.3)
06/06/25 10:26
06/06/25 10:26
Vital Signs
Initial and Last Documented VS:
Initial Vital Signs
Temp Pulse
98.4 F 172
06/06/25 10:07 06/06/25 10:07
Last Documented Vital Signs
Temp Pulse Resp BP Pulse Ox
98.4 F 154 24 112/62 94
06/06/25 10:07 06/06/25 11:15 06/06/25 11:15 06/06/25 11:00 06/06/25 11:15
<Colin Art MD - Last Filed: 06/06/25 10:29>
Orders/Labs/Results
Orders:
Orders
06/06/25 10:09
Electrocardiogram (*1) Urgent
Reason for Study: Tachycardia
EKG- Treatment ONCE
06/06/25 10:15
0.9% Sodium Chloride 1000 ml [Nss] 1,000 ml IV BOLUS
Ondansetron Injectable [Zofran] 4 mg IV NOW STA
06/06/25 10:26
Complete Blood Count/With Diff Urgent
Comprehensive Metabolic Panel Urgent
Lactic Acid Urgent
Lipase Urgent
06/06/25 10:29
Urinalysis Reflex To Culture Urgent
CR Chest Portable - 1 View Urgent
Comment:
Reason For Exam: sepsis
Reason Study Needs to be Portable: Unable to Transport
06/06/25 10:32
PTT Urgent
Prothrombin Time Urgent
Blood Culture Q30M
MAT Source: Blood/Venous
Specimen Description:
Blood Culture Q30M
MAT Source: Blood/Venous
Specimen Description:
06/06/25 10:56
Blood Bank Products [* Blood Bank Products] Urgent
Blood Bank Products: *Packed RBC Leuko (PRBC's
Quantity: 1
Transfuse Today: Yes
Reason: Anemia
Cefepime HCl [Maxipime] 1,000 mg IV NOW STA
06/06/25 11:07
Sterile Water [Sterile Water For Injection] 10 ml .ROUTE .[facility]-MED ONE
06/06/25 11:09
Vancomycin [Vancocin] 2,000 mg 0.9% Sodium Chloride 500 ml [Nss] 500 ml IV NOW
06/06/25 11:15
Type+Screen Urgent
BBK Wristband Number:
06/06/25 11:16
0.9% Sodium Chloride 1000 ml [Nss] 1,000 ml IV BOLUS
Abnormal Lab Results
06/06/25 06/06/25
10: 10:32
WBC 0.1 L* 10^3/uL
(4.8-10.8)
RBC 2.02 L 10^6/uL
(4.70-6.10)
Hgb 6.3 L* g/dL
(13.0-18.0)
Hct 18.2 L* %
(39.0-52.0)
MCH 31.2 H pg
(27.0-31.0)
RDW 16.1 H %
(11.5-14.5)
Plt Count 11 L* D 10^3/uL
(130-400)
MPV 13.9 H fL
(7.4-10.4)
Absolute Neuts (auto) 0.0 L* 10^3/uL
(1.4-6.5)
Absolute Lymphs (auto) 0.1 L 10^3/uL
(1.2-3.4)
Absolute Monos (auto) 0.0 L 10^3/uL
(0.1-0.6)
Neutrophils % 20.0 L %
(42.2-75.2)
Lymphocytes % 70.0 H %
(20.5-51.1)
Monocytes % 10.0 H %
(1.7-9.3)
PT 14.9 H Sec
(11.4-14.6)
Sodium 132 L mmol/L
(135-145)
Glucose 284 H mg/dl
(70-99)
Total Bilirubin 1.7 H mg/dl
(0.2-1.3)
06/06/25 10:26
06/06/25 10:26
Vital Signs
Initial and Last Documented VS:
Initial Vital Signs
Temp Pulse
98.4 F 172
06/06/25 10:07 06/06/25 10:07
Last Documented Vital Signs
Temp Pulse Resp BP Pulse Ox
98.4 F 154 24 112/62 94
06/06/25 10:07 06/06/25 11:15 06/06/25 11:15 06/06/25 11:00 06/06/25 11:15
<Evan Vaughan PA-C - Last Filed: 06/06/25 11:42>
MDM/Problems Addressed
Differential Diagnosis Includes:
Patient here with fatigue and vomiting after having treatment for CML yesterday. Noted to have rapid A-fib. EKG demonstrates A-fib with a rate of 161. Will hydrate. Labs pending. May need rate control. Zofran ordered for nausea
<Evan Vaughan PA-C - Last Filed: 06/06/25 11:42>
*Pulse Oximetry
Patient hypoxic: no
*Critical Care Note
Total Time (30-74mins, 75-104mins- exclusive of procedures): Not Applicable
<Evan Vaughan PA-C - Last Filed: 06/06/25 11:42>
Update Note
Update Note:
Patient has multiple findings on workup including anemia with rapid A-fib and pneumonia on the x-ray of his chest. Given tachycardia, low white count and other SIRS criteria will start antibiotic with vancomycin and cefepime. Blood consent
obtained and 1 unit of packed red blood cells was ordered for his anemia. Discussed with emergency room attending. Will admit to the hospital
ED Attending Note
<Evan Vaughan PA-C - Last Filed: 06/06/25 11:42>
-
Portions of this chart may have been created with voice recognition software.� Occasional wrong word or��sound alike� substitutions may have occurred due to the inherent limitations of voice recognition software.
<Colin Art MD - Last Filed: 06/06/25 10:29>
ED Attending Note
Patient seen and examined by attending physician: Yes
ED Attending Note:
I have seen and evaluated the patient with a [id number] encounter. I have spoken to the advance practicer provider and involved in the medical history, the physical exam, medical decision making.
Evaluation and management service: agree unless noted differently below.
Results interpretation: agree unless noted differently below.
Focused HPI: 79-year-old male with history as noted significant for CML follows with Dr. Fairbanks for oncology who presents to the emergency department for evaluation of vomiting. Patient reports that he received blood transfusion yesterday. Today
he says he felt nauseated and vomited after drinking some water. Brought to the emergency room to be evaluated. He says that he feels generally weak and fatigued. He has not had any abdominal pain but has had loose stools for the past few days.
He denies any cough, fever, chest pain. He was noted to be in rapid atrial fibrillation on arrival but denies palpitations or dizziness. Review his medication list shows no blood thinners.
Physical exam: Awake and alert. Normotensive but markedly tachycardic, mildly tachypneic. No fever or hypoxia. He is somewhat pale question mild jaundice. He has no cardiac murmurs but irregularly irregular rhythm on auscultation. Faint rales
at the lung bases. No edema in the legs. His abdomen is soft and nontender.
Medical Decision Makin-year-old male presents for evaluation after an episode of vomiting; has been receiving treatment for leukemia received blood transfusion yesterday. Aside from vomiting he says he has had loose stools for a few days and
feels very weak and fatigued. Vitals were significant for markedly elevated heart rate and mild tachypnea. EKG shows rapid atrial fibrillation. Thankfully he is normotensive. Rest of exam as above. Plan to place large-bore IV send labs
including a CBC and a CMP, type and screen. Will check lactate and blood cultures. Will resuscitate with fluids before rate control as he does appear hypovolemic. Anticipate admission.
Discharge Plan
Departure
Patient Disposition: Admit
Date of Disposition: 06/06/25
Time of Disposition: 11:41
Presentation/result/management discussed w/ accepting MD/DO: Hospitalist
Discharge Problem:
Pneumonia, Anemia, Atrial fibrillation, rapid
Prescriptions:
No Action
metformin 1,000 MG tablet extended release 24hr
1,000 mg PO BID
glimepiride 2 mg Tablet
1 mg PO DAILY
magnesium 250 mg Tablet
1,000 mg PO DAILY
potassium citrate 10 mEq (1,080 mg) tablet extended release
10 meq PO BID
clobetasol 0.05 % Cream
1 applic TOPICAL BID
omeprazole 20 mg Capsule,Delayed Release(Dr/Ec)
20 mg PO DAILY
Interventions
Interventions:
*Risk Screen - Suicide Last Done: 06/06/25 10:16
*General Assessment Last Done: 06/06/25 10:21
*Neglect/Abuse Screening Last Done: 06/06/25 10:16
*ED- Fall Risk Assessment Last Done: 06/06/25 10:21
SZ-Qpcppf-Qsbnesagyp Assessment Last Done: 06/06/25 10:17
Discharge Date and Time
Print Language: ESTONIAN
[2025-06-06] MEDS: ZOFRAN 4 MG IV (10:20)
[2025-06-06] MEDS: NSS 1000 IV ×3 (10:20→15:28)
[2025-06-06 10:52] LABS: Hematocrit 18.2 % (39.0-52.0); Hemoglobin 6.3 g/dL (13.0-18.0); Mean Corp Hgb Conc. 34.6 g/dL (33.0-37.0); Mean Corpuscular Volume 90.1 fL (80.0-94.0); Nucleated Red Blood Cells % 0 % (-); Platelet Count 11 10^3/uL (130-400); Red Cell Dist. Width 16.1 % (11.5-14.5)
[2025-06-06] MEDS: MAXIPIME 1000 MG IV (11:12)
[2025-06-06 11:18] LABS: INR 1.14; PT 14.9 Sec (11.4-14.6)
[2025-06-06 11:19] LABS: APTT 33.1 Sec (23.4-35.0)
[2025-06-06] MEDS: VANCOCIN 540 MG IV (11:31)
[2025-06-06 11:32] LABS: ALT (SGPT) 16 U/L (0-50); AST (SGOT) 17 U/L (17-59); Albumin 3.9 g/dl (3.5-5.0); Alkaline Phosphatase 65 U/L (38-126); Blood Urea Nitrogen 18 mg/dl (9-20); Calcium 8.6 mg/dl (8.4-10.2); Carbon Dioxide 25 mmol/L (22-30); Chloride 99 mmol/L (98-107); Estimated Creatinine Clearance 75 ml/min; Glucose 284 mg/dl (70-99); Lipase 32 U/L (23-300); Potassium 4.2 mmol/L (3.5-5.1); Sodium 132 mmol/L (135-145); Total Protein 6.3 g/dl (6.3-8.2); eGFR > 60.00
--- NOTE | 2025-06-06 12:23 | HPS.HSE ---
Addendum entered and electronically signed by John Peter DO 06/06/25 13:39:
Apparently patient was noted to have seizure-like activity in the emergency room.
I went back to revisit patient in the ER and he started arousing and talking by my assessment. Antiepileptic medication not administered.
Nonrebreather mask is on.
Unclear etiology of seizure. No known history of seizures. Rule out cefepime induced seizure.
Stat CT head completed, report pending.
Patient afebrile initially in the ER but nursing now reporting a rectal temperature of 102.5 �F.
Will use empiric meropenem given neutropenia and new fever. Blood cultures were sent earlier.
Upgrade patient to ICU. Neurology consulted. Stranner consulted.
Family updated.
Original Note:
Family Physician
-
Family Physician: Lucia Baptiste
Chief Complaint
-
Fatigue, nausea
History of Present Illness
79-year-old male here complaining of generalized fatigue for the past month, worsened yesterday after blood transfusion.
Developed nausea and vomiting this morning. Family brought him to the emergency room for evaluation.
Has been getting periodic blood transfusions, has diagnosis of CML.
Recently changed chemotherapy a week ago according to family. Details unclear.
Denies any fevers or chills at home. Does feel cold.
Denies cough, chest pain, shortness of breath. Denies abdominal pain.
Started developing lower back pain in the emergency room. Did not have it prior to arrival. He believes it is from lying in the gurney.
Medical History
Past Medical History
Past Medical History: Reports Other
Additional Past Medical History:
Atrial fibrillation
DM 2
AML
CML
Colon polyps
Freeman's esophagus
Nephrolithiasis
Cataracts
MICKEY
Hyperlipidemia
Past Surgical History: Reports Appendectomy, Cholecystectomy and Other
Additional Past Surgical History:
Vasectomy
Ear surgery
Uteroscopy
Bilateral cataract surgery
Social History
Tobacco: Former Smoker
Alcohol: None
Drug: None
Personal:
Living: With Family
Family History
Family History: Not pertinent
Allergies / Home Medications
Allergies reflects when Allergies were last updated in [facility].
Home Medications with original date entered in [facility]
Allergy/Medication List:
Allergies
Allergy/AdvReac Type Severity Reaction Status Date / Time
[id number] Reductase Allergy muscle Verified 06/06/25 10:14
Inhibitor (Cdifhgb-Rtq-Mfm cramps
Reductase Inhibitor)
Home Medications
metformin 1,000 mg tablet,extended release 24hr (osmotic) 1,000 mg PO BID Diabetes 03/27/17
glimepiride 2 mg tablet 1 mg PO DAILY Diabetes 12/22/22
magnesium 250 mg tablet 1,000 mg PO DAILY Electrolyte Repletion 12/22/22
potassium citrate 10 mEq (1,080 mg) tablet,extended release 10 meq PO BID Electrolyte Repletion 10/18/23
clobetasol 0.05 % topical cream 1 applic topical BID eczema 05/17/24
omeprazole 20 mg capsule,delayed release 20 mg PO DAILY Gastrointestinal Issue 05/17/24
Review of Systems
-
History Source: Patient and Family
A 12 point ROS was completed and negative except as noted: Yes
Constitutional: Reports Fatigue
Abdomen/GI: Reports Nausea and Vomiting
Physical Exam
Vital Signs
Vital Signs
Temp Pulse Resp BP Pulse Ox
98.4 F 155 17 112/62 96
06/06/25 10:07 06/06/25 11:45 06/06/25 11:45 06/06/25 11:00 06/06/25 11:45
Physical Exam
General: Well Developed, Well Nourished, No Apparent Distress and Comfortable
HEENT: NormoCephalic, Anicteric and Moist mucous membranes
Respiratory: Clear
Cardiac: S1/S2, Irregular Rhythm and Tachycardia
GI: Soft, Non Tender and Non Distended
Genito-urinary: Deferred by me
Musculoskeletal: No Clubbing, No Cyanosis and No Edema
Skin: Warm and Dry
Neuro: AO x 3
Hematologic/Lymphatic: No Lymphadenopathy
Psych: Calm
Laboratory Results
-
06/06/25 10:26
06/06/25 10:26
Laboratory Results
PT 14.9 Sec (11.4-14.6) H 06/06/25 10:32
INR 1.14 06/06/25 10:32
APTT 33.1 Sec (23.4-35.0) 06/06/25 10:32
Lactic Acid 1.6 mmol/L (0.7-2.0) 06/06/25 10:26
Total Bilirubin 1.7 mg/dl (0.2-1.3) H 06/06/25 10:26
AST 17 U/L (17-59) 06/06/25 10:26
ALT 16 U/L (0-50) 06/06/25 10:26
Alkaline Phosphatase 65 U/L (38-126) 06/06/25 10:26
Lipase 32 U/L (23-300) 06/06/25 10:26
Impression/Plan
-
Rapid atrial fibrillation -relatively hypotensive. Start IV Cardizem for rate control if blood pressure allows. Admit to IVU. Consult cardiology. He is not on chronic anticoagulation at home.
Presumably due to chronic anemia and patient choice. 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
Acute vomiting -differential diagnosis of acute gastroenteritis versus other etiology. No evidence of obstruction on exam. Continue antiemetics, clear liquid diet, monitor for now.
Acute on chronic pancytopenia -due to underlying leukemia. Hemoglobin 6.3 this morning. PRBC transfusion ordered. Platelet count 11,000, platelet transfusion ordered.
ANC 0. However, no fevers. 1 dose of cefepime and vancomycin ordered by the ED, blood cultures ordered. Hold further antibiotics unless he develops fevers.
No clear evidence of infection. Patient denies cough or shortness of breath. Chest x-ray, 1 view, reviewed by myself, I see no definite infiltrate.
AML -under the care of Dr. Carley Fairbanks, they are consulted.
Hyponatremia -132. Monitor for now.
DM 2 with hyperglycemia -glucose 284. Check hemoglobin A1c. Use low resistance NovoLog scale. Hold oral agents. Was on glimepiride and metformin prior to admission.
Hyperlipidemia
MICKEY
History of nephrolithiasis
Freeman's esophagus -use IV Protonix for now.
Obesity due to excess calories
Full code
Family updated at the bedside.
[2025-06-06 13:04] LABS: Glucose - Point of Care 282 mg/dl (70-99)
[2025-06-06 13:09] LABS: LDH 287 U/L (120-246)
--- NOTE | 2025-06-06 13:35 | CON.NEURO4 ---
Consultation - Neurology 4
-
CONSULTING PHYSICIAN: Dr. Lance Whittaker
REFERRING PHYSICIAN: Dr. John Peter
DICTATED BY: Dr. Lance Whittaker
DATE/TIME OF REQUEST: 06/06/2025
DATE/TIME OF CONSULTATION: 06/06/2025
Reason for Consultation: Seizure
ASSESSMENT AND PLAN:
The patient is a 79 years old male, who complained of generalized weakness for the past month and it worsened yesterday after blood transfusion. The patient developed a witnessed seizure in the ER which was a tonic-clonic seizure, lasting about 1 to
2 minutes with postictal state. The staff in the ER saw the patient having a seizure which started with twitching of the right arm and he had a right-sided gaze. There is no history of tongue bite. The patient's mental status has improved since
the seizure, however at this time he complains of breathing difficulty for which he is on a BiPAP. There is no history of a seizure in the past.
The plan is not to start him on any antiepileptic medication at this time, as the seizure was likely provoked by a medication and is also it is the first seizure that the patient has ever had. The patient also has pancytopenia and has a diagnosis
of CML. The patient was found to have rapid atrial fibrillation and was seen by cardiology. He is not on anticoagulation at home.
. Seizure precautions including no driving for 6 months and reporting to [facility] as per [place] law.
I had detailed discussion with the patient's regarding the assessment and the management plan, and she verbalized understanding of discussion.
History of Present Illness:
The patient is a 79 years old male, who complains of generalized weakness for the past month and it worsened yesterday after blood transfusion. The patient developed nausea and vomiting this morning and was brought to the ER by the family. He has
been getting periodic blood transfusions and he has a diagnosis of CML. Recently his chemotherapy was changed about a week ago as per family. The patient developed a witnessed seizure in the ER which was a tonic-clonic seizure, lasting about 1 to
2 minutes with postictal state. The staff in the ER saw the patient having a seizure which started with twitching of the right arm and he had a right-sided gaze preference. The patient's mental status has improved since the seizure, however at
this time he complains of breathing difficulty for which he is on a BiPAP. There is no history of a seizure in the past.
Past Medical History:
Atrial fibrillation
DM 2
CML
Colon polyps
Freeman's esophagus
Nephrolithiasis
Cataracts
MICKEY
Hyperlipidemia
Review of Systems:
The patient denies headaches, dizziness, chest pain, shortness of breath, fever, chills, nausea and vomiting.
Neurologic Examination:
Alert and oriented x 3,
Speech is clear,
The cranial nerves II to XII are grossly intact,
The patient has antigravity strength in all extremities,
The sensations are grossly intact,
The patient does not have limb ataxia.
Vital Signs and Labs
-
Vital Signs and Labs:
Vital Signs
Temp Pulse Resp BP Pulse Ox
37.0 C 118 27 101/60 90
06/06/25 12:44 06/06/25 12:45 06/06/25 12:45 06/06/25 12:44 06/06/25 12:45
Lab Results
06/06/25 10:26
06/06/25 10:26
PT 14.9 Sec (11.4-14.6) H 06/06/25 10:32
INR 1.14 06/06/25 10:32
APTT 33.1 Sec (23.4-35.0) 06/06/25 10:32
Sodium 132 mmol/L (135-145) L 06/06/25 10:26
Potassium 4.2 mmol/L (3.5-5.1) 06/06/25 10:26
BUN 18 mg/dl (9-20) 06/06/25 10:26
Glucose 284 mg/dl (70-99) H 06/06/25 10:26
Calcium 8.6 mg/dl (8.4-10.2) 06/06/25 10:26
Medications
-
Active Medications
Generic Name Dose Route Start Last Admin
Trade Name Freq PRN Reason Stop Dose Admin
Diltiazem HCl 125 mg in 125 mls @ 0 mls/hr 06/06/25 12:30
Cardizem IV
PER PROTOCOL JINA
Protocol
Per Protocol
Sodium Chloride 0 flush 06/06/25 13:00
Sodium Chloride 0.9% (Flush) Syringe IV 07/04/25 12:59
PER PROTOCOL JINA
Home Medications
�Medication �Instructions �Recorded
metformin 1,000 mg tablet,extended 1,000 mg PO BID Diabetes 03/27/17
release 24hr (osmotic)
glimepiride 2 mg tablet 2 mg PO DAILY Diabetes 12/22/22
potassium citrate 10 mEq (1,080 10 meq PO BID Electrolyte Repletion 10/18/23
mg) tablet,extended release
omeprazole 20 mg capsule,delayed 20 mg PO DAILY Gastrointestinal 05/17/24
release Issue
loperamide 2 mg tablet 2 mg PO Q4H PRN loose stools 06/06/25
magnesium citrate 100 mg tablet 100 mg PO DAILY 06/06/25
venetoclax 100 mg tablet 400 mg PO DAILY 06/06/25
(Venclexta)
--- NOTE | 2025-06-06 13:53 | VATNOTE ---
Was called to patients bedside in ED to obtain additional peripheral IV access. Upon arrival, patient began actively seizing. MDs at bedside. Post ictally, patient's BP dropped to 60s systolic. Patient's Right Chest SubQ port accessed at this time
for central access for patient's declining clincal status and additional peripheral lines obtained for multiple medications including: vancomycin, cefepime, IVF, and platelets that were all infusing.
--- NOTE | 2025-06-06 13:53 | CON.CAR ---
Consultation
Consultation Request
Date/Time Consultation Requested: 06/06/25
Date/Time Consultation Performed: 06/06/25
Requesting Provider: Dr. Peter
Performing Provider: Dr. Youngblood
Reason for Consultation: rapid AF
Medical History
-
Chief Complaint: weakness
History of Present Illness:
I had the pleasure to meet Edil Jarrell in ED bed 6 along with his and one of his daughters. 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 Carley Fairbanks diagnosed 3 to 4
years ago, sleep apnea, hypertension, hyperlipidemia, type 2 diabetes mellitus on oral medications, adrenal adenoma on the left, and a remote history of kidney stones status post lithotripsy. 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
DCA was consulted during his admission in April 2024 for an episode of self terminating rapid atrial fibrillation during an admission for E. coli bacteremia with cholangitis. Anticoagulation was discussed and ultimately not initiated due to
increased risks and patient preference. He had been recommended cardiology follow-up but admits that he canceled the appointment. He and his family deny any history of known coronary artery disease or prior myocardial infarct, heart failure,
stroke/TIA or thromboembolic disease. His atypical CML has been well-controlled on treatment until a few months ago when decreased counts with bone marrow biopsy showed conversion to AML. Just last week his therapy was changed from Xospata to
Venetodax and he has been continued on Dacogen. He has been having CBCs weekly and had a blood transfusion Sunday. Patient and his report progressive fatigue and weakness with poor appetite and nausea. His activity has markedly decreased and
he presented to the ER when he could not get up without assistance. He denies fevers or chills or sick contacts. He denies tachycardia/palpitations, chest pain or pressure or shortness of breath. No lower extremity edema. No syncope. He denies
overt bleeding.
.
In the emergency room he was found to be afebrile with a pulse of 172 and blood pressure 116/80 mmHg satting 94% on room air but tachypneic. An EKG and telemetry monitoring found rapid atrial fibrillation with heart rates initially in the 160s.
Lab work showed severe neutropenia with an ANC of 0 WBC 0.1, and severe thrombocytopenia with platelets of 11. His hemoglobin was 6.3 g/dL. Initial lactate was 1.6, LDH 287. COVID-19 negative. Chest x-ray concerning for left perihilar
infiltrate. At the time of our interview he was receiving IV fluids and platelets. He had also received cefepime and vancomycin as well as on a dose of Zofran. During my exam and an interview, he became unresponsive without loss of consciousness,
staring and not following commands with shaking concerning for seizure. Vital signs during this event were relatively stable with heart rates in A-fib around 100 and blood pressures initially 100s over 70s. CT of the head showed no acute
abnormality or bleed. Seizure activity was felt to be related to cefepime. Following seizure activity he became hypotensive requiring pressors in addition to additional blood products and was transferred to the ICU. Additionally he became more
tachypneic and hypoxic requiring BiPAP. He was given amiodarone 150 mg IV bolus. Bedside echocardiogram done in the ICU showed preserved biventricular size and systolic function with stable, mild aortic stenosis and no other hemodynamically
significant valve pathology or concern for pulmonary hypertension; he had no significant pericardial effusion. He converted to sinus rhythm in the ICU during echocardiogram. Multispecialist Communication with hospitalist, medical scheduler, and his
oncologist as well as ER physician. Updated family members throughout these events.
Past medical history: Atypical CML with recent progression to AML by biopsy, left adrenal adenoma, type 2 diabetes mellitus, hypertension, hyperlipidemia, episode of paroxysmal atrial fibrillation in April 2024, self terminating in the setting of
cholangitis, history of kidney stones, former smoker.
Past Medical History
Past Medical History: Other (See HPI)
Past Surgical History: Other (Reviewed in EMR)
Social History
Tobacco: Former Smoker
Alcohol: None
Drug: None
Personal:
Living: With Family
Employment: Employed
Family History
Family History: Reviewed & Not Pertinent
Allergies / Home Medications
Allergy/AdvReac Type Severity Reaction Status Date / Time
Fhtjsxz-ZHA-[id number] Reductase Allergy muscle Verified 06/06/25 10:14
Inhibitor (Jojiftq-Xls-Cag cramps
Reductase Inhibitor)
�Medication �Instructions �Recorded �Confirmed �Type
metformin 1,000 mg tablet,extended 1,000 mg PO BID Diabetes 03/27/17 06/06/25 History
release 24hr (osmotic)
glimepiride 2 mg tablet 2 mg PO DAILY Diabetes 12/22/22 06/06/25 History
potassium citrate 10 mEq (1,080 10 meq PO BID Electrolyte Repletion 10/18/23 06/06/25 History
mg) tablet,extended release
omeprazole 20 mg capsule,delayed 20 mg PO DAILY Gastrointestinal 05/17/24 06/06/25 History
release Issue
loperamide 2 mg tablet 2 mg PO Q4H PRN loose stools 06/06/25 06/06/25 History
magnesium citrate 100 mg tablet 100 mg PO DAILY 06/06/25 06/06/25 History
venetoclax 100 mg tablet 400 mg PO DAILY 06/06/25 06/06/25 History
(Venclexta)
Review of Systems
-
Unable to obtain full review of systems at this time due to: Acuity
History Source: Patient, Family and Coordinating Provider
All other systems: Negative unless noted
Constitutional: Fatigue
EENT: No Symptoms
Respiratory: No Symptoms
Cardiac: No Symptoms
Abdomen/GI: Nausea and Vomiting
: No Symptoms
Musculoskeletal: No Symptoms
Skin: No Symptoms
Neurological: Weakness
Endocrine: No Symptoms
Hematologic/Lymphatic: No Symptoms
Physical Exam
Vital Signs
Temp Pulse Resp BP Pulse Ox
98.6 F 142 19 100/60 100
06/06/25 12:44 06/06/25 13:45 06/06/25 13:45 06/06/25 13:45 06/06/25 13:34
Lab Results
06/06/25 10:26
06/06/25 10:26
Physical Exam
General: Well Developed and Other (Appears acutely and chronically ill, pale. Lethargic but initially awake alert and oriented answering all my questions appropriately at times with some humor. Following seizure event patient was awake alert but
confused.)
HEENT: Normocephalic, Anicteric and Other (Mucous membranes dry)
Respiratory: Other (Tachypneic. Bronchovesicular breath sounds decreased at bases without wheezes or rhonchi. No crackles.)
Cardiac: Irregular Rhythm and Other (Positive S1-S2. No murmur appreciated during emergency room visit. No rub. No JVP.)
GI: Other (Mildly distended but nontender. Positive bowel sounds)
Musculoskeletal: No Edema
Skin: Warm
Neuro: AO x 3, Tremors and Nonfocal/Grossly Intact
Psych: Calm
Impression / Plan
-
Impression:
Rapid atrial fibrillation with history of PAF April 2024
Severe neutropenia with pancytopenia secondary to AML
Neutropenic fever
Left-sided pneumonia on chest x-ray
Possible aspiration during seizure in emergency department
Witnessed seizure activity in the emergency department following cefepime
Symptomatic transfusion dependent anemia
Hypotension
Hyponatremia
Hyperglycemia with history of type 2 diabetes mellitus
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
Mild aortic stenosis
Plan:
Rapid atrial fibrillation in the setting of critical illness with symptomatic anemia and severe neutropenia/pancytopenia with neutropenic fever, dehydration/nausea and vomiting.
- Patient received IV amiodarone bolus 150 mg x 1 and converted to sinus rhythm in the ICU.
- Twelve-lead EKG in sinus rhythm showed no acute ischemic changes.
- Bedside 2D echocardiogram with preserved/vigorous LV systolic function and no hemodynamically significant valve pathology. No pericardial effusion.
- No anticoagulation given profound anemia/thrombocytopenia secondary to AML
- Support hemodynamics with pressors and blood products as needed.
- Could consider initiation of amiodarone drip to do maintain sinus rhythm during this critical illness.
-Patient did not examine in heart failure however he is receiving multiple units of blood products as well as at this point over 2 L IV fluid resuscitation. Will need to follow volume status closely as he may need diuretics following volume/blood
resuscitation.
-Empiric antibiotics for suspected pneumonia and possible aspiration. Workup for neutropenic fever ongoing, cultures pending.
-Neurology consulted for possible seizure suspected related to cefepime
-Hematology/oncology consulted
-Set Key Driver consulted.
Critical care time in the emergency room and in the ICU: 90 minutes
Data Reviewed
-
EKG: Tracing Personally Visualized and interpreted
Radiology: Report Reviewed by me
Labs: Labs Reviewed by me
Old Records: Reviewed
--- NOTE | 2025-06-06 14:34 | EDCM ---
CM reviewed chart and met with pt and bedside in ED. Pt currently on BiPAP. Lives with his in 1 story home, [address].
Independent in ADLs, personal care and ambulation at baseline. No assistive device, there is a walker in the home, no other DME.
Completed treatment for CML last week [facility], received blood transfusion yesterday.
Confirms prescription coverage.
Hx [facility], no hx SNF.
PCP: Lucia Baptiste
Pharmacy: [facility] [address] [place]
CM will continue to follow for all discharge planning needs.
[2025-06-06] MEDS: CORDARONE 103 MG IV (14:42)
[2025-06-06] MEDS: OFIRMEV 100 IV (14:43)
--- NOTE | 2025-06-06 15:11 | CON.INTV ---
Consultation
Consultation Request
Date/Time Consultation Requested: 06/06/2025 - 145
Date/Time Consultation Performed: 06/06/2025 - 150
Requesting Provider: Dr. Peter
Performing Provider: Dr. Booker
Reason for Consultation: Rapid A-fib
Medical History
-
Chief Complaint: Weakness + nausea/vomiting
History of Present Illness:
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
weakness. He has a several year history of atypical CML which was well-controlled on treatment until a few months ago when his counts decreased with bone marrow biopsy showing AML. He had just stopped Xospata and started venetoclax and has been
continued on Dacogen, as per hematology/oncology. Of note, he follows with Dr. Fairbanks for his leukemia. He was obtaining CBCs weekly with transfusions if needed, with last blood transfusion yesterday. As per last visit on 05/20/2025, he was to
start treatment the week after. He now comes to the hospital due to significant weakness with great difficulty evening standing up off the couch. In the ER he was afebrile to 98.4 �F, pulse rate 172, BP 116/80 and he was saturating 94% on room air
although was very tachypneic. EKG confirmed A-fib with RVR with ventricular rate 161 bpm. Labs showed severe neutropenia with an ANC of 0, platelet count of 11, and white blood count of 0.1. Hb was also reduced at 6.3 despite getting a blood
transfusion yesterday. His glucose was 284, lactate 1.6, T. bili 1.7, LDH 287. COVID-19 antigen found to be negative. CXR was concerning for left perihilar infiltrate. He was given 1 L NS 0.9% in the ER + Zofran, cefepime and vancomycin.
Shortly after getting cefepime, he became unresponsive with shaking movements in his arms and legs for about 45-60 seconds. He then stop shaking and appeared confused. Patient was diagnosed with a seizure, possibly from cefepime. CT head obtained
showing no acute intracranial abnormality. He remained tachycardic and cardiology consulted with amiodarone initiated. Given his hemodynamic instability with rapid A-fib and seizure-like activity with severe neutropenia + anemia/thrombocytopenia,
he is admitted to the ICU with card runner service consulted for additional management/recommendations.
When I saw the patient, he was lying in bed in no acute distress on BiPAP 12/5 blood with 3 L/min, saturating 97% with HR 110 and BP 71/44. His VTe on the BiPAP was around 390 cc. His , Nancy, was present at bedside. She confirmed that the
patient was very weak at home and this is what brought him into the hospital. She got a blood transfusion yesterday which improved his symptoms but then it only lasted up until earlier today. She also was there when he became unresponsive and had
his shaking limb movements and was able to corroborate the story. The patient is somnolent but easily arousable and answering questions appropriately, currently feels better on the BiPAP and denies chest pain, SIMPSON, nausea, or chills.
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
PSHx: Extracorporal shockwave lithotripsy (2014), vasectomy, ear surgery, left ureteroscopy (2005+2012), cholecystectomy (05/20/2024), appendectomy
Past Medical History
Past Medical History: Other (Above as per HPI)
Past Surgical History: Other (Above as per HPI)
Social History
Tobacco: Non-smoker
Alcohol: Occasional
Drug: None
Personal:
Living: With Family ( = Nancy)
Family History
Family History: CAD (Father), Cancer (Brother: GI cancer) and Other (Brother: Stroke; daughter: Gallbladder disease; son: Kidney stones)
Allergies / Home Medications
Allergies
Allergy/AdvReac Type Severity Reaction Status Date / Time
Fjvdrqs-HMW-SnQ Reductase Allergy muscle Verified 06/06/25 10:14
Inhibitor (Pxcqgci-Zmh-Dyl cramps
Reductase Inhibitor)
Home Medications
�Medication �Instructions �Recorded �Confirmed �Last Taken �Type
metformin 1,000 mg tablet,extended 1,000 mg PO BID Diabetes 03/27/17 06/06/25 06/05/25 History
release 24hr (osmotic)
glimepiride 2 mg tablet 2 mg PO DAILY Diabetes 12/22/22 06/06/25 06/05/25 History
potassium citrate 10 mEq (1,080 10 meq PO BID Electrolyte Repletion 10/18/23 06/06/25 06/05/25 History
mg) tablet,extended release
omeprazole 20 mg capsule,delayed 20 mg PO DAILY Gastrointestinal 05/17/24 06/06/25 06/05/25 History
release Issue
loperamide 2 mg tablet 2 mg PO Q4H PRN loose stools 06/06/25 06/06/25 Unknown History
magnesium citrate 100 mg tablet 100 mg PO DAILY 06/06/25 06/06/25 Unknown History
venetoclax 100 mg tablet 400 mg PO DAILY 06/06/25 06/06/25 Unknown History
(Venclexta)
Review of Systems
-
Unable to Obtain full review of systems at this time due to: Acuity
Vitals / Labs / Diagnostic Testing
Vital Signs
Temp Pulse Resp BP Pulse Ox
99.5 F 143 38 117/73 99
06/06/25 15:08 06/06/25 14:01 06/06/25 14:01 06/06/25 14:01 06/06/25 14:01
Lab Data
06/06/25 10:26
06/06/25 10:26
Laboratory Results
06/06/25
10:32
PT 14.9 H
INR 1.14
APTT 33.1
Diagnostic Testing:
Physical Exam
-
HEENT: Normocephalic, Anicteric and Other (BiPAP fullface mask on)
Cardiovascular: Irregular Rhythm, Peripheral Edema (negative) and Other (Tachycardic)
Respiratory: Wheeze (negative), Rales (negative), Rhonchi (negative) and Other (Diminished breath sounds bilaterally)
GI: Soft, Distended (Abdominal obesity), Non Tender and Normal Bowel Sounds
Neurology: Tremors (negative) and Other (Somnolent although easily arousable to voice and answering questions appropriately)
Skin: Warm and Dry
General: Respiratory Distress (negative), Comfortable, Fever (negative) and Chills (negative)
Assessment
-
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
and increased weakness. He has a several year history of atypical CML which was well-controlled on treatment until a few months ago when his counts decreased with bone marrow biopsy showing AML. He had just stopped Xospata and started venetoclax
and has been continued on Dacogen, as per hematology/oncology. Of note, he follows with Dr. Fairbanks for his leukemia. He was obtaining CBCs weekly with transfusions if needed, with last blood transfusion yesterday. As per last visit on
05/20/2025, he was to start treatment the week after. He now comes to the hospital due to significant weakness with great difficulty evening standing up off the couch. In the ER he was afebrile to 98.4 �F, pulse rate 172, BP 116/80 and he was
saturating 94% on room air although was very tachypneic. EKG confirmed A-fib with RVR with ventricular rate 161 bpm. Labs showed severe neutropenia with an ANC of 0, platelet count of 11, and white blood count of 0.1. Hb was also reduced at 6.3
despite getting a blood transfusion yesterday. His glucose was 284, lactate 1.6, T. bili 1.7, LDH 287. COVID-19 antigen found to be negative. CXR was concerning for left perihilar infiltrate. He was given 1 L NS 0.9% in the ER + Zofran, cefepime
and vancomycin. Shortly after getting cefepime, he became unresponsive with shaking movements in his arms and legs for about 45-60 seconds. He then stop shaking and appeared confused. Patient was diagnosed with a seizure, possibly from cefepime.
CT head obtained showing no acute intracranial abnormality. He remained tachycardic and cardiology consulted with amiodarone initiated. Given his hemodynamic instability with rapid A-fib and seizure-like activity with severe neutropenia +
anemia/thrombocytopenia, he is admitted to the ICU with card runner service consulted for additional management/recommendations.
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
obesity, history of adenomatous polyp of colon
Impression:
#Severe neutropenia with pancytopenia due to AML
#Neutropenic fever
#Left-sided pneumonia with CXR showing left perihilar infiltrate
#Seizure-like activity with concern for cefepime induced seizure
#Symptomatic anemia
#Atrial fibrillation with RVR
#Hypotension likely due to arrhythmia
#Hyponatremia
#Hyperglycemia (HbA1c: 6 on 05/18/2024)
#Hyperbilirubinemia (chronic)
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
#Mild aortic stenosis
Plan:
- Patient presented with nausea/vomiting and appearing jaundice with severe weakness
- His weakness is likely due to symptomatic anemia in the setting of his AML
- Eventual PT/OT if he stabilizes
- LFTs show chronic T. bili within elevated LDH which is actually improved compared to prior blood draw on 05/29/2025 (likely elevated due to high cell turnover in the setting of recently diagnosed AML)
- Continue to trend LFTs and T bili
- Recommend to give supportive medications with antiemetics while trending QTc (441ms)
- He has suspicion for left-sided perihilar pneumonia and would give broad-spectrum antibiotics for this, using meropenem given his severe neutropenia with fever
- He is s/p cefepime + IV vancomycin in the ER, but then subsequently had a suspected seizure and unclear if this was antibiotic induced
- Do not give additional cefepime
- CT head obtained showing no acute intracranial abnormality
- Neurology consulted, with recommendations appreciated. Not recommended at this time to start antiepileptic medications
- Neurochecks q1hr
- Need to obtain rate control; he was given amiodarone already and will be started on amiodarone infusion if BP can tolerate; given that his MAP is currently <65 would hold off on starting this for now
- Start Landen-Synephrine drip to help improve MAP
- Cardiology consulted and recommendations appreciated
- Echo is pending - -> being performed in the ICU and there is no evidence for a pericardial effusion
- Goal HR <110-120
- Goal MAP >65
- Replete electrolytes with K>4, Mg>2
- Maintain SpO2 >90-94%
- Has required BiPAP due to significant SOB
- Wean off BiPAP as tolerated once blood gas obtained, assuming he is not hypercapnic. His BiPAP is being bled with O2, and titrate O2 flow rate to keep SpO2 as above
- Low threshold to intubate
- Maintain euglycemia with goal BG 140-180; check A1C
- Trend serum Na with goal 135-145
- Trend H/H and transfuse if needed to keep Hb>7g/dL; keep plt>10-20k
- 1 U platelets is being transfused; then would transfuse 1-2 units PRBC
- Hematology consulted; hold off on Neupogen as this may worsen his % of blasts (I discussed this with Heme/Oncology, Dr. Fairbanks)
- Check uric acid + phosphorus to evaluate for tumor lysis syndrome
- For now, strict avoidance of anticoagulants/antiplatelet medications given his severe thrombocytopenia + anemia; fortunately his INR is WNL at 1.14
- prn nebulized bronchodilators - not currently bronchospastic
- Incentive spirometer encouraged 10x per hour for at least 4 hrs a day
- DVT ppx: SCDs only for now given his severe thrombocytopenia
Code status: Full code - -> this will be an ongoing discussion as he would benefit more from being DNR/DNI, erika given his severely low platelet count as he would almost 100% have internal bleeding if he were to receive CPR
Continue ICU level of care for this critically ill patient.
Critical care statement: A total of 43 minutes of critical care time was provided for this patient today. This includes management of unstable vital signs, evaluation of the patient at bedside, reviewing the patient's pertinent medical records
including radiographs, microbiology, laboratory evaluations, and discussion with primary team, consultants, pharmacy, nutrition, physical therapy, case management, charge nurse, critical care nursing, and respiratory therapy.
[2025-06-06 15:12] LABS: Glucose - Point of Care 378 mg/dl (70-99)
[2025-06-06 15:38] LABS: COVID-19 Antigen Negative (Negative)
--- NOTE | 2025-06-06 15:41 | PTCARENOTE ---
Amiodarone bolus completed -gtt held per Resource Forester due to hypotension at this time, 71/44. IVF initiated at ordered rate. Pt drowsy/arousable. at bedside. Pt 100% on bipap 06/26 with 3L, VBG drawn and sent per orders.
--- NOTE | 2025-06-06 15:43 | PHA.VAN.IN ---
Addendum entered and electronically signed by Tanya Mares [facility] 06/06/25 15:51:
Noted patient also neutropenic, ANC 0.
Original Note:
Assessment
- Assessment
Renal Function: Appears similar to baseline
Maximum Temperature: 102.5F
Concomitant Antimicrobials: Meropenem
AUC Dosing Plan
- Dosing Variables
Dosing Weight (kg): 96.6
Dosing CrCl (ml/min): 75
Vd coefficient (L/kg): 0.7
- Empiric Dosing
Initial / Loading Dose: Vancomycin 2000mg given 06/06 at 1130
Maintenance Regimen: Vanc 500mg tonight at 2200, then start vanc 1000mg IV Q12h 06/07 at 0600
Estimated AUC (mcg*h/mL): 466
Estimated Peak (mcg*h/mL): 26.9
Estimated Trough (mcg/ml): 13.3
Estimated Half Life (H): 10
- Monitoring
No levels ordered at this time: Consider levels at steady state.
MRSA Screen: Ordered per protocol
Pharmacokinetics Vancomycin I
- -
Patient Age: 79
Patient Sex: Male
Vancomycin Day #: 1
Indication: Pulmonary/Respiratory
Requesting Provider: Dr. Booker
Pertinent Antimicrobial Allergies:
No pertinent antibiotic allergies
Height / Weight:
Height 5 ft 10 in
Actual Weight 96.6 kg
Pertinent Past Medical History: BMI ~31
- Vital Signs / Lab Results
Temp Pulse Resp BP Pulse Ox
99.5 F 112 32 71/44 98
06/06/25 15:08 06/06/25 15:30 06/06/25 15:30 06/06/25 15:30 06/06/25 15:30
Lab Results - Hematology
06/06/25
10:26
WBC 0.1 L*
Lab Results - Chemistry
06/06/25
10:26
BUN 18
Creatinine 0.9
Estimated Creat Clear 75
Albumin 3.9
06/06/25
10:26
Lactic Acid 1.6
[2025-06-06 15:48] LABS: Venous Blood Gas B.E. -8.8 mmol/L (-4 to +4); Venous Blood Gas O2 Sat % 99.2 %
[2025-06-06] MEDS: NEO-SYNEPHRINE 250 IV ×2 (16:02→20:31)
[2025-06-06 16:10] LABS: Magnesium 1.6 mg/dl (1.6-2.3); Uric Acid 4.0 mg/dl (3.5-8.5)
--- NOTE | 2025-06-06 16:11 | PTCARENOTE ---
1 unit PRBCs initiated, phenylephrine initiated at this time per Dr. Elizabeth as well. see worklist.
--- NOTE | 2025-06-06 16:21 | PTCARENOTE ---
Pt in SR on telemetry, ECG obtained at this time.
[2025-06-06] MEDS: PROTONIX IV 40 MG IV (16:43)
[2025-06-06] MEDS: NSS (PRESERVATIVE FREE) 10 ML IV (16:44)
--- NOTE | 2025-06-06 17:24 | PTCARENOTE ---
Blood transfusion completed, pt with no s/s transfusion reaction. BP slowly improving, phenylephrine titrated for MAP >65 as ordered. Pt remains drowsy but arousable -AOx3, pleasant and cooperative, states he is thirsty and will have broth and water
ice for dinner.
[2025-06-06] MEDS: STERILE WATER FOR INJECTION 10 ML IV ×2 (17:29→23:19)
[2025-06-06] MEDS: MERREM 500 MG IV ×2 (17:29→23:19)
[2025-06-06 17:43] LABS: Glucose - Point of Care 292 mg/dl (70-99)
[2025-06-06 17:58] LABS: Hematocrit 23.4 % (39.0-52.0); Hemoglobin 7.7 g/dL (13.0-18.0); Mean Corp Hgb Conc. 32.9 g/dL (33.0-37.0); Mean Corpuscular Volume 93.6 fL (80.0-94.0); Platelet Count 23 10^3/uL (130-400); Red Cell Dist. Width 15.3 % (11.5-14.5)
[2025-06-06] MEDS: NOVOLOG FLEXPEN-LOW RESISTANCE 3 UNITS SC (18:08)
[2025-06-06 18:32] LABS: Nucleated Red Blood Cells % 0 % (-)
[2025-06-06 19:33] LABS: Cortisol, Random 66.6 ug/dl
--- NOTE | 2025-06-06 21:24 | PTCARENOTE ---
Pt received start of shift, HR SR on telemetry. AAOx4. Afebrile. Drowsy, but awakens to verbal. Lungs clear b/l. 1L NC 100%. Gtts infusing as ordered/documented in worklist. Weaning Landen gtt as tolerated - pt MAP maintaining goal. 1u PRBC transfusing
- pt tolerating. Voiding zohaib urine in urinal.
[2025-06-06] MEDS: VANCOCIN HCL 500 MG 100 IV (21:55)
[2025-06-06 23:49] LABS: Glucose - Point of Care 277 mg/dl (70-99)
[2025-06-07] VITALS (29 sets, daily range): BP systolic 86–138; BP diastolic 43–69; BMI 31.2
[2025-06-07] MEDS: NOVOLOG FLEXPEN 5 UNITS SC (00:34)
--- NOTE | 2025-06-07 00:41 | PTCARENOTE ---
Continuing to wean evie gtt as tolerated by pt. 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 Pt perking up more, less drowsy. No further changes in assessment.
[2025-06-07 04:04] LABS: Glucose - Point of Care 207 mg/dl (70-99)
[2025-06-07 04:06] LABS: Hematocrit 22.6 % (39.0-52.0); Hemoglobin 7.5 g/dL (13.0-18.0); Mean Corp Hgb Conc. 33.2 g/dL (33.0-37.0); Mean Corpuscular Volume 91.9 fL (80.0-94.0); Nucleated Red Blood Cells % 0 % (-); Platelet Count 12 10^3/uL (130-400); Red Cell Dist. Width 15.3 % (11.5-14.5)
[2025-06-07 04:11] LABS: Blood Urea Nitrogen 30 mg/dl (9-20); Calcium 7.2 mg/dl (8.4-10.2); Carbon Dioxide 22 mmol/L (22-30); Chloride 103 mmol/L (98-107); Estimated Creatinine Clearance 52 ml/min; Glucose 181 mg/dl (70-99); Potassium 4.2 mmol/L (3.5-5.1); Sodium 131 mmol/L (135-145); eGFR 55.19
[2025-06-07] MEDS: NSS 1000 IV (04:15)
[2025-06-07] MEDS: NOVOLOG FLEXPEN 3 UNITS SC (04:16)
[2025-06-07] MEDS: STERILE WATER FOR INJECTION 10 ML IV ×4 (05:05→23:56)
[2025-06-07] MEDS: VANCOCIN 200 IV (05:05)
[2025-06-07] MEDS: MERREM 500 MG IV ×4 (05:05→23:56)
[2025-06-07] MEDS: CALCIUM GLUCONATE 130 MG IV (05:06)
--- NOTE | 2025-06-07 05:50 | PTCARENOTE ---
Landen gtt weaned off. RA 94-97%. Abx as ordered. 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 Calcium repletion ordered and administered - see MAR. Blood sugar elevated on recheck - additional 3u novolog ordered and administered (see MAR). Pt with moderate/large
light brown stool into bedpan. Hygiene provided. Call bowers within reach.
--- NOTE | 2025-06-07 07:29 | W.PN.HOSP.TC ---
Today's Communication/Plan
-
Add basal/bolus insulin
Serum osmolarity, urine studies
Continue empiric antibiotics
Await blood cultures
Out of bed
advance diet to diabetic
Heme/onc input
Assessment / Plan
Assessment / Plan
Gen-AAOx3, NAD
HEENT-NC, AT, anicteric, clear oral mm
Neck-supple
CV-reg, no M, +S1/S2
Lungs-clear B/L
Abd-soft, NT, ND
Ext-bilateral lower extremity nonpitting edema
Musculoskeletal-no cyanosis, clubbing
Skin-warm and dry
Neuro-grossly non-focal
Psych-calm, cooperative
Acute hypoxic respiratory failure -not present on admission but developed after transfusion and seizure yesterday. Suspect aspiration pneumonitis as the etiology. Doubt TRALI.
Briefly required BiPAP and nasal cannula oxygen and then subsequently transition to room air. Oxygenation now normal on room air. Currently denies shortness of breath. No significant cough.
BNP 2140. However, doubt acute heart failure.
Shock -unclear etiology. Differential diagnosis of septic versus other etiology. Afebrile on arrival yesterday in the emergency room but subsequently had a fever after the seizure. Suspect fever related to aspiration pneumonitis.
Nevertheless, blood cultures are pending. Continue broad-spectrum antibiotics for now.
I would not call this febrile neutropenia as he did not have a fever on arrival.
Random cortisol 66.
Rapid atrial fibrillation -present on arrival. Did receive 1 dose of IV amiodarone at 2:42 PM 06/06 in the emergency room and subsequently converted to sinus tachycardia.
Did not require amiodarone infusion. Did not require diltiazem infusion.
Currently normal sinus rhythm with normal heart rate, EKG reviewed.
Seizure -in the emergency room 06/06. Suspect due to cefepime administration. No history of seizures. CT head unremarkable. Neurology involved. Did not require seizure medication.
No evidence of tumor lysis syndrome. Uric acid is normal. Phosphorus is normal. Potassium is normal.
Acute on chronic pancytopenia -suspect related to leukemia and Venclexta. Heme-onc consulted. Known to Dr. Fairbanks.
Transfused 2 units PRBC so far. Hemoglobin 7.5 today. Admission hemoglobin was 6.3.
Platelet count 12,000 today. Received 1 unit of platelets yesterday.
ANC 100.
Transfuse per hematology recommendations.
AML -as above.
Hyponatremia -131. Appears to be hyponatremic for a few weeks now. Cortisol 66, TSH 1.9. Check urine studies, serum osmolarity.
DM2 with hyperglycemia -hemoglobin A1c pending. Hold oral agents. Continue NovoLog corrective scale, add Lantus 10 units daily, NovoLog with meals. Advance diet to diabetic diet.
MICKEY
Hyperlipidemia
Freeman's esophagus
History of nephrolithiasis
Obesity due to excess calories
Full code
Transfer out of ICU this afternoon if remains stable and okay with airborne operations.
Anticipated Discharge: > 48 hours
Subjective/Interval History
-
Date of Service: June 07, 2025
Patient seen and examined. Feeling better, no complaints.
Objective Data
-
Labs:
Laboratory Results
06/07/25
03:17
WBC 0.2 L*
Hgb 7.5 L
Hct 22.6 L
Plt Count 12 L* D
Sodium 131 L
Potassium 4.2
Chloride 103
Carbon Dioxide 22
BUN 30 H
Creatinine 1.3
Glucose 181 H
Calcium 7.2 L
Vital Signs:
Vital Signs
Temp Pulse Resp BP Pulse Ox
99.8 F 87 15 105/69 96
06/07/25 03:39 06/07/25 06:45 06/07/25 06:45 06/07/25 06:00 06/07/25 06:45
I&O
06/06/25 06/07/25 06/08/25
06:59 06:59 06:59
Intake Total 3695 / 3695
Output Total 860 / 860
Balance 2835 / 2835
Review of Systems
-
History Source: Patient
All other systems: Reviewed and negative
[2025-06-07 07:32] LABS: Glucose - Point of Care 199 mg/dl (70-99)
[2025-06-07] MEDS: NOVOLOG FLEXPEN 4 UNITS SC ×3 (07:36→18:36)
[2025-06-07] MEDS: NOVOLOG FLEXPEN-MODERATE RESISTANCE 1 UNITS SC ×2 (07:36→12:03)
--- NOTE | 2025-06-07 08:20 | W.PN.INTV ---
Today's Communication / Plan
Recommendations
Continue antibiotics for left perihilar pneumonia
Follow-up blood cultures; recommend sputum culture if he can produce a decent sample
Repeat CXR in 4-6 weeks to assure pneumonia resolves
Seizure management per neurology
Transfusion as needed to keep Hb >7-8 g/dL and platelets >10�20k
Hold antiplatelets/anticoagulants given the above
Neutropenic precautions
Amiodarone is continued per cardiology
Goal BG >100 and <180
Low-dose BB added by cardiology
Patient is stable for downgrade out of ICU to IMU. No additional recommendations at this time. Administrative Specialist/Pulmonary service will now sign off. Please reconsult if there are any additional questions/concerns, or if patient's respiratory status
deteriorates.
Assessment
-
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
and increased weakness. He has a several year history of atypical CML which was well-controlled on treatment until a few months ago when his counts decreased with bone marrow biopsy showing AML. He had just stopped Xospata and started venetoclax
and has been continued on Dacogen, as per hematology/oncology. Of note, he follows with Dr. Fairbanks for his leukemia. He was obtaining CBCs weekly with transfusions if needed, with last blood transfusion yesterday. As per last visit on
05/20/2025, he was to start treatment the week after. He now comes to the hospital due to significant weakness with great difficulty evening standing up off the couch. In the ER he was afebrile to 98.4 �F, pulse rate 172, BP 116/80 and he was
saturating 94% on room air although was very tachypneic. EKG confirmed A-fib with RVR with ventricular rate 161 bpm. Labs showed severe neutropenia with an ANC of 0, platelet count of 11, and white blood count of 0.1. Hb was also reduced at 6.3
despite getting a blood transfusion yesterday. His glucose was 284, lactate 1.6, T. bili 1.7, LDH 287. COVID-19 antigen found to be negative. CXR was concerning for left perihilar infiltrate. He was given 1 L NS 0.9% in the ER + Zofran, cefepime
and vancomycin. Shortly after getting cefepime, he became unresponsive with shaking movements in his arms and legs for about 45-60 seconds. He then stop shaking and appeared confused. Patient was diagnosed with a seizure, possibly from cefepime.
CT head obtained showing no acute intracranial abnormality. He remained tachycardic and cardiology consulted with amiodarone initiated. Given his hemodynamic instability with rapid A-fib and seizure-like activity with severe neutropenia +
anemia/thrombocytopenia, he is admitted to the ICU with dispute resolution specialist service consulted for additional management/recommendations.
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
obesity, history of adenomatous polyp of colon
Impression:
#Severe neutropenia with pancytopenia due to AML
#Neutropenic fever
#Left-sided pneumonia with CXR showing left perihilar infiltrate (likely aspiration after seizure)
#Seizure-like activity with concern for cefepime induced seizure
#Symptomatic anemia
#Atrial fibrillation with RVR now in NSR
#Hypotension likely due to arrhythmia - now HDN stable
#Hyponatremia
#Hyperglycemia (HbA1c: 6 on 05/18/2024)
#Hyperbilirubinemia (chronic)
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
#Mild aortic stenosis
Plan:
- Patient presented with nausea/vomiting and appearing jaundice with severe weakness
- His weakness was likely due to symptomatic anemia in the setting of his AML
- PT/OT now that he has stabilized
- LFTs show chronic T. bili within elevated LDH which is actually improved compared to prior blood draw on 05/29/2025 (likely elevated due to high cell turnover in the setting of recently diagnosed AML)
- Continue to trend LFTs and T bili
- Recommend to give supportive medications with antiemetics while trending QTc (441ms)
- He has suspicion for left-sided perihilar pneumonia and would give broad-spectrum antibiotics for this, using meropenem given his severe neutropenia with fever
- He is s/p cefepime + IV vancomycin in the ER, but then subsequently had a suspected seizure and appears to be related to cefepime that he was given
- Do not give additional cefepime
- CT head obtained showing no acute intracranial abnormality
- Neurology consulted, with recommendations appreciated. Not recommended at this time to start antiepileptic medications
- Neurochecks
- Now back in NSR
- Required amiodarone drip on 06/06, and is now back on amiodarone gtt to keep him in NSR, per cardiology
- Now off evie-Synephrine drip with MAP>65-70
- Echo performed yesterday in the ICU, which was a technically difficult study, showing LVEF >70% with mild LVH, with normal PASP at 23-25 mmHg with normal RV size/function, with no evidence of a pericardial effusion.
- Goal MAP >65
- Replete electrolytes with K>4, Mg>2
- Low-dose BB started by cardiology
- Maintain SpO2 >90-94%
- Had required BiPAP due to significant SOB - -> now stable off BiPAP and is on room air breathing comfortably, saturating 96%
- Blood gas performed yesterday showed no evidence of hypercapnia
- Maintain euglycemia with goal BG >100 and <180; A1C: 6.1 on 06/07/2025
- Trend serum Na with goal 135-145
- Trend H/H and transfuse if needed to keep Hb>7g/dL; keep plt>10-20k
- 1 U platelets transfused on admission and he is s/p 2 units PRBC
- Hematology consulted; hold off on Neupogen as this may worsen his % of blasts (I discussed this with Heme/Oncology, Dr. Fairbanks)
- No evidence of tumor lysis syndrome with uric acid WNL, and phosphorus level also WNL
- Strict avoidance of anticoagulants/antiplatelet medications given his severe thrombocytopenia + anemia; fortunately his INR is WNL at 1.14
- prn nebulized bronchodilators - not currently bronchospastic
- Incentive spirometer encouraged 10x per hour for at least 4 hrs a day
- DVT ppx: SCDs only for now given his severe thrombocytopenia
Code status: Full code - -> recommend continued discussion as he would benefit more from being DNR/DNI, erika given his severely low platelet count as he would almost 100% have internal bleeding if he were to receive CPR
Patient is stable for downgrade out of ICU to IMU. No additional recommendations at this time. Administrative Specialist/Pulmonary service will now sign off. Thank you for allowing us to be involved in the care of this patient. Please reconsult if there are
any additional questions/concerns, or if patient's respiratory status deteriorates.
Total time spent today was 78 minutes for this encounter. Time includes reviewing laboratory test/imaging results, reviewing pertinent medical records, obtaining and reviewing medical history, performing an appropriate exam, ordering medications,
tests and procedures. Time also includes documentation of this encounter, coordinating patient care and communicating with other healthcare professionals. Total time does not include separately billed tests performed on this date of service.
Subjective Dataa
Subjective Data
Date of Service:
Date of Service: June 07, 2025
Chief Complaint: Administrative Specialist Follow Up
Subjective:
Patient was seen and evaluated today at bedside. Afebrile since yesterday afternoon. ANC is 100 this morning. He was transfused 1 unit PRBC last night with inappropriate rise of Hb. He looks much better today overall. His daughter, Joseline, and
son-in-law, Rainer, are present at bedside. Patient's heart rate currently 97, and he is back in normal sinus rhythm, BP 132/59 and he is saturating 96% on room air. He denies SIMPSON, chest pain, SOB, nausea, fevers or chills.
Review of Systems
General: Other (Negative unless mentioned above)
Objective Data
Data Reviewed
Vital Signs / I&O / Oxygen:
Vital Signs
Temp Pulse Resp BP Pulse Ox
98.5 F 87 9 132/53 96
06/07/25 10:38 06/07/25 09:07 06/07/25 09:07 06/07/25 09:07 06/07/25 09:07
Intake and Output
06/06/25 06/07/25 06/08/25
06:59 06:59 06:59
Intake Total 3695 / 3775 800 / 800
Output Total 860 / 860 550 / 550
Balance 2835 / 2915 250 / 250
SaO2 96
Nasal Cannula flow liters per 1
minute
Physical Exam
General: Respiratory Distress (negative), Comfortable and Chills (negative)
HEENT: Normocephalic and Anicteric
Cardiovascular: S1-S2 and Peripheral Edema (+1 lower extremity pitting edema bilaterally)
Respiratory: Wheeze (negative), Crackles (negative), Rhonchi (negative) and Non-Labored Respirations
GI: Soft, Distended (Abdominal obesity), Non Tender and Normal Bowel Sounds
Neurology: Awake, Alert, Oriented and Tremors (negative)
Skin: Warm, Dry and Cyanosis (negative)
Labs/Micro/Reports
Lab Data
06/07/25 03:17
06/07/25 03:17
Laboratory Results
06/06/25
10:32
PT 14.9 H
INR 1.14
APTT 33.1
Microbiology
06/06/25 10:32 Blood/Venous Blood Culture - Preliminary
No Growth in 24 hours- Final report to follow
06/06/25 20:29 Urine Legionella Urinary Antigen - Final
Negative for Legionella pneumophila Serogroup 1 antigen.
A negative result does not rule out the possiblity of
Legionella infection due to other serogroups or species of
Legionella. Clinical correlation is recommended.
06/06/25 20:29 Urine Streptococcus pneumoniae Antigen (M - Final
Negative for Streptococcus pneumoniae antigen.
A negative result does not exclude infection with
Streptococcus pneumoniae. Clinical correlation is
recommended.
--- NOTE | 2025-06-07 08:27 | PHA.VAN.FU ---
Vancomycin Assessment / Plan
- Assessment
Renal Function: SCR Increasing
WBC's are: Stable
Neutropenia: ANC = 100
Concomitant Antimicrobials: meropenem
- Dosing Plan
Adjust Regimen to: dosing by level given increase in SCR & BUN this AM
Dosing Comments: received 1000mg this AM at 05:05
- Monitoring Plan
Random Level: 06/08 0600
- Follow Up
Pharmacy will continue to follow.
Vancomycin Follow UP
- -
Patient Age: 79
Patient Sex: Male
Vancomycin Day #: 2
Indication: Pulmonary/Respiratory
Requesting Provider: Dr. Booker
Pertinent Antimicrobial Allergies:
No pertinent antibiotic allergies
Height / Weight:
Height 5 ft 10 in
Actual Weight 98.6 kg
Pertinent Past Medical History: BMI ~31
- Vital Signs / Lab Results
Temp Pulse Resp BP Pulse Ox
99.8 F 87 15 105/69 96
06/07/25 03:39 06/07/25 06:45 06/07/25 06:45 06/07/25 06:00 06/07/25 06:45
Lab Results - Hematology
06/06/25 06/06/25 06/07/25
10: 17:44 03:17
WBC 0.1 L* 0.2 L* 0.2 L*
Lab Results - Chemistry
06/06/25 06/07/25
10:26 03:17
BUN 18 30 H
Creatinine 0.9 1.3
Estimated Creat Clear 75 52
Albumin 3.9
06/06/25 06/06/25 06/06/25
10:26 17:44 23:27
Lactic Acid 1.6 3.0 H 1.6
06/07/25
03:17
Lactic Acid 1.3
Microbiology Results
06/06/25 20:29 Legionella Urinary Antigen - Final
Urine Negative for Legionella pneumophila Serogroup 1 antigen.
A negative result does not rule out the possiblity of
Legionella infection due to other serogroups or species of
Legionella. Clinical correlation is recommended.
Streptococcus pneumoniae Antigen (M - Final
Negative for Streptococcus pneumoniae antigen.
A negative result does not exclude infection with
Streptococcus pneumoniae. Clinical correlation is
recommended.
[2025-06-07] MEDS: LANTUS 0.1 UNITS SC (08:40)
[2025-06-07] MEDS: PROTONIX IV 40 MG IV (08:41)
[2025-06-07] MEDS: NSS (PRESERVATIVE FREE) 10 ML IV (08:41)
[2025-06-07 10:02] LABS: Glycohemoglobin (HgbA1c) 6.1 % (4.0-5.9)
--- NOTE | 2025-06-07 11:17 | W.PN.CARDCBS ---
Today's Communication / Plan
-
Monitor telemetry
Add Lopressor
Impression / Plan
-
Impression:
Rapid atrial fibrillation with history of PAF April 2024
Severe neutropenia with pancytopenia secondary to AML
Neutropenic fever
Left-sided pneumonia on chest x-ray
Possible aspiration during seizure in emergency department
Witnessed seizure activity in the emergency department following cefepime
Symptomatic transfusion dependent anemia
Hypotension
Hyponatremia
Hyperglycemia with history of type 2 diabetes mellitus
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
Mild aortic stenosis
Plan:
Rapid atrial fibrillation in the setting of critical illness with symptomatic anemia and severe neutropenia/pancytopenia with neutropenic fever, dehydration/nausea and vomiting, Currently in sinus rhythm.
- Patient received IV amiodarone bolus 150 mg x 1 and converted to sinus rhythm in the ICU.
- Twelve-lead EKG in sinus rhythm showed no acute ischemic changes.
-Telemetry reviewed and maintaining sinus rhythm with short burst of A. tach versus A-fib self terminating.
-Patient is off pressors with stable hemodynamics. Will start Lopressor with hold parameters.
-Try to maintain rhythm; may need oral amiodarone if continues to have bursts of atrial arrhythmias
- Bedside 2D echocardiogram with preserved/vigorous LV systolic function and no hemodynamically significant valve pathology. No pericardial effusion.
- No anticoagulation given profound anemia/thrombocytopenia secondary to AML
-Replete magnesium for greater than 2
-TSH within normal limits 1.93
Seizure, likely from cefepime
-Neurology consult
-CT of the head without acute findings
-Neurologically intact this morning and back to baseline
Shock/hypoxic respiratory distress following seizure status post fluid and blood product resuscitation with transient BiPAP
-Pressors have been weaned off
-Oxygenation has improved now on nasal cannula O2
-Mentation is improved and back to baseline
-Patient does not examine in heart failure despite elevated proBNP of 2140. Will hold off on diuretics
Fever postprocedure with neutropenia/pancytopenia
-Empiric antibiotics
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
-Oncology consulted
-Support with transfusions as needed
- Support hemodynamics with pressors and blood products as needed.
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
Subjective
Date of Service: June 07, 2025
Patient was seen and examined with at bedside. He is back to his baseline and denies complaints.
Objective
Labs:
06/07/25 03:17
06/07/25 03:17
Labs
Hgb 7.5 g/dL (13.0-18.0) L 06/07/25 03:17
Hct 22.6 % (39.0-52.0) L 06/07/25 03:17
Plt Count 12 10^3/uL (130-400) L* D 06/07/25 03:17
PT 14.9 Sec (11.4-14.6) H 06/06/25 10:32
INR 1.14 06/06/25 10:32
APTT 33.1 Sec (23.4-35.0) 06/06/25 10:32
Sodium 131 mmol/L (135-145) L 06/07/25 03:17
Potassium 4.2 mmol/L (3.5-5.1) 06/07/25 03:17
BUN 30 mg/dl (9-20) H 06/07/25 03:17
Creatinine 1.3 mg/dL (0.7-1.3) 06/07/25 03:17
Glucose 181 mg/dl (70-99) H 06/07/25 03:17
Vital Signs and I&O:
Vital Signs
Temp Pulse Resp BP Pulse Ox
98.5 F 87 9 132/53 96
06/07/25 10:38 06/07/25 09:07 06/07/25 09:07 06/07/25 09:07 06/07/25 09:07
Vital Signs
Temp Pulse Resp BP Pulse Ox
98.5 F 87 9 132/53 96
06/07/25 10:38 06/07/25 09:07 06/07/25 09:07 06/07/25 09:07 06/07/25 09:07
Intake & Output
06/05/25 06/06/25 06/07/25 06/08/25
06:59 06:59 06:59 06:59
Intake Total 3695 / 3775 800 / 800
Output Total 860 / 860 550 / 550
Balance 2835 / 2915 250 / 250
Physical Exam
Physical Exam
General: Coloring is better than yesterday. He is awake alert and oriented in no acute distress on nasal cannula O2
Heart: Regular, positive S1/S2, Negative S4, No murmur
Lungs: CTA b/l, negative wheezes/rales/rhonchi
Abd: Positive BS, NT/ND, neg rebound/rigidity/guarding
Ext: No edema
Neuro: nonfocal
--- NOTE | 2025-06-07 11:22 | CON.ONC ---
Consultation
-
Date Consultation Requested: 06/06/25
Date Consultation Performed: 06/07/25
Requesting Provider: John Peter MD
Performing Provider: Carley Fairbanks MD
Reason for Consultation: AML
Impression
Impression
Pancytopenia
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
Afib w/ RVR
Seizure, likely from Cefepime
Aspiration w/ pneumonitis/pneumonia, in the setting of seizure
Transient fever after seizure
Weakness
Plan
Plan
Monitor CBC, transfuse to keep hgb > 7 (or higher if recommended per cardiology) and platelets > 15
On empiric Vanco, meropenem (suspect fever and CXR findings related to seizure and subsequent aspiration)
Mgmt of Afib per cardiology
Not a candidate for a/c w/ thrombocytopenia
PT c/s for weakness
Will follow along and make recs as appropriate
Because of likely prolonged neutropenia and lymphopenia with new AML diagnosis, at discharge, he'll benefit from outpatient infection prophylaxis with Levaquin 500mg/d and acyclovir 400mg bid.
Patient History
History of Present Illness
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 Initial treatment was with azacitidine (Vidaza), later transitioned to decitabine (Dacogen) plus giltoritinib for an FLT3 mutation. He had
several years of clinical response with improved cytopenias. Over the past few months he developed worsening cytopenias and increasing peripheral blasts; an April bone marrow biopsy demonstrated transformation to acute myeloid leukemia (25�40 %
blasts). Decitabine was continued; giltoritinib was discontinued; venetoclax was initiated 05/25/2025.
Since starting venetoclax he has experienced profound cytopenias requiring transfusions. Yesterday he presented to the ED with weakness and vomiting after drinking a large volume of water. Labs showed pancytopenia (WBC 0.1, Hgb 6.3 g/dL, Plt 11
K/�L) and rapid atrial fibrillation. He was started on amiodarone and diltiazem and broad-spectrum antibiotics (including cefepime). While hospitalized he suffered a seizure thought secondary to cefepime; cefepime was discontinued. He likely
aspirated during the seizure, developed respiratory distress and fever, and was admitted to the ICU. He received PRBC and platelet transfusions.
Today his CBC shows WBC 0.2 K/�L, Hgb 7.5 g/dL, Plt 12 K/�L. He reports no bleeding, is breathing comfortably on room air, and has been afebrile aside from the brief post-seizure fever. Cardiac rhythm is currently regular.
Past-Medical/Surgical History
Past Medical History
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
PSHx: Extracorporal shockwave lithotripsy (2014), vasectomy, ear surgery, left ureteroscopy (2005+2012), cholecystectomy (05/20/2024), appendectomy
Social History
Tobacco: Non-smoker
Alcohol: Occasional
Drug: None
Personal:
Living: With Family ( = Nancy)
Family History
Family History: CAD (Father), Cancer (Brother: GI cancer) and Other (Brother: Stroke; daughter: Gallbladder disease; son: Kidney stones)
Patient Medication
�Medication �Instructions �Recorded �Confirmed �Last Taken �Type
metformin 1,000 mg tablet,extended 1,000 mg PO BID Diabetes 03/27/17 06/06/25 06/05/25 History
release 24hr (osmotic)
glimepiride 2 mg tablet 2 mg PO DAILY Diabetes 12/22/22 06/06/25 06/05/25 History
potassium citrate 10 mEq (1,080 10 meq PO BID Electrolyte Repletion 10/18/23 06/06/25 06/05/25 History
mg) tablet,extended release
omeprazole 20 mg capsule,delayed 20 mg PO DAILY Gastrointestinal 05/17/24 06/06/25 06/05/25 History
release Issue
loperamide 2 mg tablet 2 mg PO Q4H PRN loose stools 06/06/25 06/06/25 Unknown History
magnesium citrate 100 mg tablet 100 mg PO DAILY Supplement 06/06/25 06/06/25 Unknown History
venetoclax 100 mg tablet 400 mg PO DAILY Antineoplastic 06/06/25 06/06/25 Unknown History
(Venclexta) Agent
Active Medications
Generic Name Dose Route Start Last Admin
Trade Name Freq PRN Reason Stop Dose Admin
Acetaminophen 650 mg 06/06/25 20:43
Acetaminophen 325 Mg Tablet PO 07/04/25 20:42
Q6HPRN PRN
mild pain/ fever>100.5F
Dextrose 12.5 grams 06/06/25 14:53
Dextrose 50% (0.5 Grams/Ml) 50 Ml Syringe IV 07/04/25 14:52
[id number] PRN
hypoglycemia
Protocol
Glucagon 1 mg 06/06/25 14:53
Glucagon 1 Mg Vial IM 07/04/25 14:52
PRN PRN
hypoglycemia
Protocol
Heparin Sodium (Porcine) 500 unit 06/06/25 14:00
Heparin Flush Pf (100 Unit/Ml) 5 Ml Syringe IV 07/04/25 13:59
PER PROTOCOL JINA
Amiodarone HCl 450 mg/ 259 mls @ 0 mls/hr 06/06/25 15:30
Dextrose IV
PER PROTOCOL JINA
Protocol
Per Protocol
Sodium Chloride 1,000 mls @ 80 mls/hr 06/07/25 04:15 06/07/25 04:15
Nss IV 1,000 mls
[id number] JINA Administration
Insulin Glargine 10 units/ 0.1 mls @ 0 mls/hr 06/07/25 08:00 06/07/25 08:40
Device SC 07/05/25 07:59 0.1 mls
DAILY JINA Administration
As Directed
Vancomycin HCl 1 each/ Device 0 mls @ 0 mls/hr 06/07/25 08:35
IV
PER PROTOCOL JINA
Protocol
As Directed
Insulin Aspart 0 units 06/07/25 07:30 06/07/25 07:36
Insulin Aspart Moderate Resistance 300 Units/3 Ml Pen.Injctr SC 07/05/25 07:29 1 units
AC JINA Administration
Protocol
Insulin Aspart 4 units 06/07/25 07:30 06/07/25 07:36
Insulin Aspart (Novolog) 100 Units/Ml 3 Ml Flexpen SC 07/05/25 07:29 4 units
AC JINA Administration
Meropenem 500 mg 06/06/25 18:00 06/07/25 05:05
Meropenem 500 Mg/10 Ml Vial IV 500 mg
Q6 JINA Administration
Metoprolol Tartrate 12.5 mg 06/07/25 12:00
Metoprolol 12.5 Mg Regular Release Dose (1/2 Of 25 Mg Tablet) PO 07/05/25 11:59
Q6 JINA
Ondansetron HCl 4 mg 06/06/25 16:20
Ondansetron 4 Mg/2 Ml Vial IV 07/04/25 16:19
Q6HPRN PRN
NAUSEA/VOMITING
Pantoprazole Sodium 40 mg 06/06/25 15:00 06/07/25 08:41
Pantoprazole Sodium 40 Mg/10 Ml Vial IV 07/04/25 14:59 40 mg
DAILY JINA Administration
Sodium Chloride 0 flush 06/06/25 13:00
Sodium Chloride 0.9% (Flush) Syringe IV 07/04/25 12:59
PER PROTOCOL JINA
Sodium Chloride 10 ml 06/06/25 15:00 06/07/25 08:41
Sodium Chloride 0.9% (Preservative Free) 10 Ml Vial IV 07/04/25 14:59 10 ml
DAILY JINA Administration
Sterile Water 10 ml 06/06/25 18:00 06/07/25 05:05
Sterile Water For Injection 10 Ml Vial IV 07/04/25 17:59 10 ml
Q6 JINA Administration
Review of Systems
-
All Other Systems: Not reviewed unless documented
Physical Exam
-
General: Well Developed, Well Nourished, No Apparent Distress, Comfortable and Conversant; Negative Appears in Distress or Appears Chronically Ill
HEENT: Negative Jaundice
Cardiology: Normal Sinus Rhythm
GI: Soft
Musculoskeletal: No Clubbing, No Cyanosis and No Edema
Extremities: No C/C/E
Neurology: Non Focal
Skin: Warm and Dry
Psych: Calm and Intact Judgement/Insight
Labs
Lab Results
WBC 0.2 10^3/uL (4.8-10.8) L* 06/07/25 03:17
RBC 2.46 10^6/uL (4.70-6.10) L 06/07/25 03:17
Hgb 7.5 g/dL (13.0-18.0) L 06/07/25 03:17
Hct 22.6 % (39.0-52.0) L 06/07/25 03:17
MCV 91.9 fL (80.0-94.0) 06/07/25 03:17
MCH 30.5 pg (27.0-31.0) 06/07/25 03:17
MCHC 33.2 g/dL (33.0-37.0) 06/07/25 03:17
RDW 15.3 % (11.5-14.5) H 06/07/25 03:17
Plt Count 12 10^3/uL (130-400) L* D 06/07/25 03:17
MPV 10.8 fL (7.4-10.4) H 06/07/25 03:17
Abs Immat Gran (auto) 0.0 10^3/uL (0-0.05) 06/07/25 03:17
Absolute Neuts (auto) 0.1 10^3/uL (1.4-6.5) L* 06/07/25 03:17
Absolute Lymphs (auto) 0.1 10^3/uL (1.2-3.4) L 06/07/25 03:17
Absolute Monos (auto) 0.0 10^3/uL (0.1-0.6) L 06/07/25 03:17
Absolute Eos (auto) 0.0 10^3/uL (0-0.7) 06/07/25 03:17
Absolute Basos (auto) 0.0 10^3/uL (0-0.2) 06/07/25 03:17
Immature Gran % 0.0 % (0-0.5) 06/07/25 03:17
Neutrophils % 27.7 % (42.2-75.2) L 06/07/25 03:17
Lymphocytes % 66.7 % (20.5-51.1) H 06/07/25 03:17
Monocytes % 5.6 % (1.7-9.3) 06/07/25 03:17
Eosinophils % 0.0 % (0-6) 06/07/25 03:17
Basophils % 0.0 % (0-2) 06/07/25 03:17
Creatinine 1.3 mg/dL (0.7-1.3) 06/07/25 03:17
Vital Signs
Vital Signs
Temp Pulse Resp BP Pulse Ox
98.5 F 87 9 132/53 96
06/07/25 10:38 06/07/25 09:07 06/07/25 09:07 06/07/25 09:07 06/07/25 09:07
--- NOTE | 2025-06-07 11:27 | PTCARENOTE ---
Pt was rec'd this am from night RN, AOx3 pleasant, cooperative, VSS, off evie since approx 0130 per previous RN, IVF continue at ordered rate. Pt with no complaints this am, reports feeling much better. Meds and assessment as documented, plan of care
discussed. Pt remains in sinus rhythym per tele, BPs WNL. Voiding independently in urinal, specimen sent as ordered. Per Dr. Peter, diet advance, activity as tolerated, possible downgrade later this afternoon. Pt verbalized understanding and
agreement. Safe environment maintained.
[2025-06-07 11:35] LABS: Magnesium 1.5 mg/dl (1.6-2.3)
[2025-06-07] MEDS: IMODIUM 2 MG PO ×2 (11:49→15:57)
[2025-06-07] MEDS: LOPRESSOR 12.5 MG PO ×3 (11:49→23:56)
[2025-06-07 12:13] LABS: Glucose - Point of Care 162 mg/dl (70-99)
[2025-06-07] MEDS: MAGNESIUM SULFATE 50 IV (13:48)
--- NOTE | 2025-06-07 14:20 | PTCARENOTE ---
Pt w/ 2 urgent episodes of liquid brown stool on bsc, stated he does have this problem at home on occasion. Pt had been ordered and given Immodium at 11:49 this am per his request. Pt returned back to bed after approx one hour in chair, as per his
request. Orders rec'd and carried out for Mag repletion and additional pack of platelets. See documentation for details.
--- NOTE | 2025-06-07 14:47 | PTCARENOTE ---
1 pack of platelets rec'd and luis, pt tolerating well. Resting comfortably at this time.
[2025-06-07] MEDS: TYLENOL 650 MG PO (15:06)
--- NOTE | 2025-06-07 17:27 | W.PN.NEURO.1 ---
Today's Communication / Plan
-
The patient is an 79 years old male, with a past medical history of CML, who had a new onset seizure, which was witnessed in the ER, the suspicion is that it was likely 2/2 cefepime administration.
The plan is not to initiate AED at this time as it is the first seizure, also suspect that it was 2/2 cefepime administration.
Today, the patient is more alert and is able to communicate well. His speech is clear and he does not have any gross focal weakness.
Will sign off.
Please call if you have any question.
Subjective/Objective
Subjective Data
Date of Service: June 07, 2025
The patient is an 79 years old male, with a past medical history of CML, who presented with complained of generalized weakness. In the ER he had a new-onset seizure, which is thought to be likely due to a drug reaction to cefipime. The patient had a
witnessed tonic-clonic seizure lasting about 1-2 minutes, with postictal state, and then he returned to his baseline in about 20 minutes.
This was the patient's first seizure, which is suspected to be 2/2 cefepime administration. The plan is not to start him on AED at this time as it was the first seizure and also suspect that it was 2/2 cefepime administration. .
Today, he is doing well. He is alert and oriented x 3, speech is clear and he does not have any gross focal weakness.
Seizure precautions including no driving for 6 months and the seizure needs to be reported to [facility] as per law.
Objective Data
Vital Signs
Temp Pulse Resp BP Pulse Ox
37.5 C 88 22 106/51 94
06/07/25 15:48 06/07/25 15:48 06/07/25 15:48 06/07/25 15:48 06/07/25 14:40
Lab Results
06/07/25 03:17
06/07/25 03:17
PT 14.9 Sec (11.4-14.6) H 11/15/25 10:32
INR 1.14 06/06/25 10:32
APTT 33.1 Sec (23.4-35.0) 06/06/25 10:32
Sodium 131 mmol/L (135-145) L 06/07/25 03:17
Potassium 4.2 mmol/L (3.5-5.1) 06/07/25 03:17
BUN 30 mg/dl (9-20) H 06/07/25 03:17
Glucose 181 mg/dl (70-99) H 06/07/25 03:17
Calcium 7.2 mg/dl (8.4-10.2) L 06/07/25 03:17
Phosphorus 3.6 mg/dl (2.5-4.5) 06/07/25 03:17
Fze-K-Jgjlgwostqv Pept 2140 pg/ml 06/06/25 15:36
Patient Allergies
Gxnsgwh-KJB-WnE Reductase Inhibitor (Iesucnj-Aqd-Tup Reductase Inhibitor) Allergy (Verified 06/06/25 10:14)
muscle cramps
cefepime Adverse Reaction (Severe, Verified 06/07/25 13:01)
Pharmacy to Review
[2025-06-07 18:04] LABS: Glucose - Point of Care 149 mg/dl (70-99)
[2025-06-07] MEDS: NOVOLOG FLEXPEN-MODERATE RESISTANCE SC (18:13)
--- NOTE | 2025-06-07 18:20 | PTCARENOTE ---
Pt downgraded to IMU level. At 18:10, pt c/o itchiness t/o chest and shoulders, and 'dampness' in the same area. Pt temp 98.7, linens noted to be moist. No rash observed other than areas of where pt appears to have scratched himself. notified,
orders rec'd for stat IV Benadryl 25 mg x1. Linens changed, awaiting med verification by pharmacy at this time. VSS.
[2025-06-07] MEDS: BENADRYL 25 MG IV (18:32)
--- NOTE | 2025-06-07 20:38 | PTCARENOTE ---
on assessment pt AAOx3, denies pain and SOB, [place], SR on the monitor, RA 96%, loose stools, urinal, R chest wall port, call bowers in reach
[2025-06-08] VITALS (30 sets, daily range): BP systolic 95–142; BP diastolic 34–93; PULSE 120–166; O2SAT 96; BMI 31.6
[2025-06-08 02:48] LABS: Hematocrit 18.8 % (39.0-52.0); Hemoglobin 6.2 g/dL (13.0-18.0); Mean Corp Hgb Conc. 33.0 g/dL (33.0-37.0); Mean Corpuscular Volume 92.2 fL (80.0-94.0); Nucleated Red Blood Cells % 0 % (-); Platelet Count 11 10^3/uL (130-400); Red Cell Dist. Width 15.1 % (11.5-14.5)
[2025-06-08 03:00] LABS: ALT (SGPT) 17 U/L (0-50); AST (SGOT) 19 U/L (17-59); Albumin 2.8 g/dl (3.5-5.0); Alkaline Phosphatase 45 U/L (38-126); Blood Urea Nitrogen 23 mg/dl (9-20); Calcium 8.0 mg/dl (8.4-10.2); Carbon Dioxide 25 mmol/L (22-30); Chloride 104 mmol/L (98-107); Estimated Creatinine Clearance 68 ml/min; Glucose 153 mg/dl (70-99); Magnesium 2.1 mg/dl (1.6-2.3); Potassium 3.6 mmol/L (3.5-5.1); Sodium 130 mmol/L (135-145); Total Protein 5.1 g/dl (6.3-8.2); eGFR > 60.00
[2025-06-08] MEDS: BENADRYL 25 MG IV (03:36)
[2025-06-08] MEDS: MERREM 500 MG IV ×4 (05:13→23:03)
[2025-06-08] MEDS: LOPRESSOR 12.5 MG PO ×4 (05:13→23:03)
[2025-06-08] MEDS: STERILE WATER FOR INJECTION 10 ML IV ×4 (05:14→23:03)
--- NOTE | 2025-06-08 05:56 | PTCARENOTE ---
pt went into Afib HR 109-135, pt asymptomatic, BP115/64, HR 115 and O2 95% RA, PHYSICIAN GENERAL PRACTICE paged and made aware, EKG ordered and completed, Afib on the monitor, call bowers in reach
[2025-06-08 07:31] LABS: Glucose - Point of Care 184 mg/dl (70-99)
[2025-06-08] MEDS: LANTUS 0.1 UNITS SC (07:31)
[2025-06-08] MEDS: PROTONIX 20 MG PO (07:31)
[2025-06-08] MEDS: IMODIUM 2 MG PO ×3 (07:52→23:03)
[2025-06-08] MEDS: NOVOLOG FLEXPEN-MODERATE RESISTANCE 1 UNITS SC ×2 (07:59→11:36)
[2025-06-08] MEDS: NOVOLOG FLEXPEN 4 UNITS SC ×3 (08:00→17:11)
--- NOTE | 2025-06-08 08:27 | W.PN.CARDCBS ---
Today's Communication / Plan
-
Start Amiodarone with PAFib with RVR 400 mg TID
Cont Lopressor with parameters
Not currently an anticoagulation candidate with pancytopenia
TSH normal
Echo with preserved EF
Neurology evaluating seizure, potentially from cefepime
-CT of the head without acute findings
Shock/hypoxic respiratory distress following seizure status post fluid and blood product resuscitation with transient BiPAP
-Pressors have been weaned off
-Oxygenation has improved now on nasal cannula O2
Impression / Plan
-
.
Impression:
Rapid atrial fibrillation with history of PAF April 2024
Severe neutropenia with pancytopenia secondary to AML
Neutropenic fever
Left-sided pneumonia on chest x-ray
Possible aspiration during seizure in emergency department
s/p witnessed seizure activity in the emergency department following cefepime, no recurrence
Symptomatic transfusion dependent anemia
Hypotension
Hyponatremia
Hyperglycemia with history of type 2 diabetes mellitus
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
Mild aortic stenosis
Plan:
Rapid atrial fibrillation in the setting of critical illness with symptomatic anemia and severe neutropenia/pancytopenia with neutropenic fever, dehydration/nausea and vomiting
Start Amiodarone with PAFib with RVR 400 mg TID
Cont Lopressor with parameters
Not currently an anticoagulation candidate with pancytopenia
TSH normal
Echo with preserved EF
Neurology evaluated seizure, potentially from cefepime
-CT of the head without acute findings
-Neuro signed off
s/p shock/hypoxic respiratory distress following seizure status post fluid and blood product resuscitation with transient BiPAP
-Pressors have been weaned off
-Oxygenation has improved now on nasal cannula O2
Fever postprocedure with neutropenia/pancytopenia
-Empiric antibiotics per veneer jointer operator and primary service.
-at d/c, benefit from outpatient infection prophylaxis with Levaquin 500mg/d and acyclovir 400mg bid as per oncology
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
-Oncology consulted
-Support with transfusions as needed
Discussed with nursing.
CCT: 31 min
Progress Note - Commercial Announcer
Subjective
Date of Service: June 08, 2025
Objective
Labs:
06/08/25 02:25
06/08/25 02:25
Labs
Hgb 6.2 g/dL (13.0-18.0) L* 06/08/25 02:25
Hct 18.8 % (39.0-52.0) L* 06/08/25 02:25
Plt Count 11 10^3/uL (130-400) L* 06/08/25 02:25
PT 14.9 Sec (11.4-14.6) H 06/06/25 10:32
INR 1.14 06/06/25 10:32
APTT 33.1 Sec (23.4-35.0) 06/06/25 10:32
Sodium 130 mmol/L (135-145) L 06/08/25 02:25
Potassium 3.6 mmol/L (3.5-5.1) 06/08/25 02:25
BUN 23 mg/dl (9-20) H 06/08/25 02:25
Creatinine 1.0 mg/dL (0.7-1.3) 06/08/25 02:25
Glucose 153 mg/dl (70-99) H 06/08/25 02:25
Vital Signs and I&O:
Vital Signs
Temp Pulse Resp BP Pulse Ox
97.8 F 114 23 123/74 97
06/08/25 07:27 06/08/25 07:27 06/08/25 07:27 06/08/25 07:27 06/08/25 07:27
Vital Signs
Temp Pulse Resp BP Pulse Ox
97.8 F 114 23 123/74 97
06/08/25 07:27 06/08/25 07:27 06/08/25 07:27 06/08/25 07:27 06/08/25 07:27
Intake & Output
06/06/25 06/07/25 06/08/25 06/09/25
06:59 06:59 06:59 06:59
Intake Total 3695 / 3775 2850 / 2850 250 / 250
Output Total 860 / 860 3400 / 3400
Balance 2835 / 2915 -550 / -550 250 / 250
Physical Exam
Physical Exam
General: No acute distress, AAOX3
Neck: Negative JVD
Heart: Irregular rate, Negative S3 positive S1/S2, Negative S4, No murmur
Lungs: CTA b/l, negative wheezes/rales/rhonchi
Abd: Positive BS, NT/ND, neg rebound/rigidity/guarding
Ext: Negative cyanosis/clubbing/edema
Neuro: nonfocal
--- NOTE | 2025-06-08 08:58 | PTCARENOTE ---
Addendum entered by Radha Alcaraz RN 06/08/25 08:59:
PRBC completed without signs reaction
Original Note:
report received, assessments per work list. patient denies pain,nausea. incontinent large loose stool. see prn administration. in afib, reviewed with cardiology. orders pending. call bowers in reach
[2025-06-08] MEDS: PACERONE 400 MG PO ×3 (09:54→21:23)
[2025-06-08 11:24] LABS: Glucose - Point of Care 153 mg/dl (70-99)
[2025-06-08 12:14] LABS: Hematocrit 23.2 % (39.0-52.0); Hemoglobin 7.6 g/dL (13.0-18.0); Mean Corp Hgb Conc. 32.8 g/dL (33.0-37.0); Mean Corpuscular Volume 91.0 fL (80.0-94.0); Nucleated Red Blood Cells % 0 % (-); Platelet Count 14 10^3/uL (130-400); Red Cell Dist. Width 15.1 % (11.5-14.5)
--- NOTE | 2025-06-08 12:58 | PTCARENOTE ---
patient oob to chair. patient back to nsr. labs sent, resulted. tiger text to hospitalist and oncologist to inform labs resulted
--- NOTE | 2025-06-08 12:59 | W.PN.HOSP.TC ---
Today's Communication/Plan
-
Monitor vital signs see plan
Started on Amio load
Wean oxygen as tolerated
Follow fever curve
Continue with antibiotic
Assessment / Plan
Assessment / Plan
Gen-AAOx3, NAD
HEENT-NC, AT, anicteric, clear oral mm
Neck-supple
CV-reg, no M, +S1/S2
Lungs-clear B/L
Abd-soft, NT, ND
Ext-bilateral lower extremity nonpitting edema
Neuro-grossly non-focal
Psych-calm, cooperative
Acute hypoxic respiratory failure -not present on admission but developed after transfusion and seizure yesterday. Suspect aspiration pneumonitis as the etiology after seizure. Doubt TRALI.
Briefly required BiPAP and nasal cannula oxygen. Wean oxygen as tolerated. Currently denies shortness of breath. No significant cough.
BNP 2140. However, doubt acute heart failure.
Shock -unclear etiology. Differential diagnosis of septic versus other etiology. Afebrile on arrival yesterday in the emergency room but subsequently had a fever after the seizure. Suspect fever related to aspiration pneumonitis.
Nevertheless, blood cultures NGTD. Continue broad-spectrum antibiotics for now.
I would not call this febrile neutropenia as he did not have a fever on arrival.
Random cortisol 66.
Rapid atrial fibrillation -present on arrival. Did receive 1 dose of IV amiodarone at 2:42 PM 06/06 in the emergency room and subsequently converted to sinus tachycardia.
then was back in A-fib again 06/08, cardiology following now started on Amio
History of paroxysmal atrial fibrillation
Seizure -in the emergency room 06/06. Suspect due to cefepime administration. No history of seizures. CT head unremarkable. Neurology involved. Did not require seizure medication.
No evidence of tumor lysis syndrome. Uric acid is normal. Phosphorus is normal. Potassium is normal.
Acute on chronic pancytopenia -suspect related to leukemia and Venclexta. Heme-onc following. Known to Dr. Fairbanks.
Owing status post blood transfusion earlier in the hospitalization, now status post PRBC and platelet 06/08. Admission hemoglobin was 6.3.
Platelet count 12,000 today. Received 1 unit of platelets yesterday.
ANC 200
Transfuse per hematology recommendations..
Per oncology infection prophylaxis with Levaquin 500 mg daily and acyclovir 400 mg twice daily upon dc
If fever then will need ID evaluation
AML -as above.
Hyponatremia -130. Appears to be hyponatremic for a few weeks now. Cortisol 66, TSH 1.9. Monitor
DM2 with hyperglycemia -hemoglobin A1c 6.1. Hold oral agents. Continue NovoLog corrective scale, add Lantus 10 units daily, NovoLog with meals. Advance diet to diabetic diet.
MICKEY
Hyperlipidemia
Freeman's esophagus
History of nephrolithiasis
Obesity due to excess calories
Full code
I spent a total of 52 minutes with the patient or on the floor. More than 50% of this time involved counseling and coordination of care.
Anticipated Discharge: > 48 hours
Subjective/Interval History
-
Date of Service: June 08, 2025
Denies pain
Objective Data
-
Labs:
Laboratory Results
06/08/25 06/08/25
02:25 11:19
WBC 0.2 L* 0.2 L*
Hgb 6.2 L* 7.6 L D
Hct 18.8 L* 23.2 L
Plt Count 11 L* 14 L* D
Sodium 130 L
Potassium 3.6
Chloride 104
Carbon Dioxide 25
BUN 23 H
Creatinine 1.0
Glucose 153 H
Calcium 8.0 L
Total Bilirubin 1.0
AST 19
ALT 17
Alkaline Phosphatase 45
Vital Signs:
Vital Signs
Temp Pulse Resp BP Pulse Ox
99.6 F 126 22 136/73 96
06/08/25 11:30 06/08/25 11:35 06/08/25 11:34 06/08/25 11:35 06/08/25 11:34
I&O
06/07/25 06/08/25 06/09/25
06:59 06:59 06:59
Intake Total 3695 / 3775 2850 / 2850 850 / 850
Output Total 860 / 860 3400 / 3400 700 / 700
Balance 2835 / 2915 -550 / -550 150 / 150
--- NOTE | 2025-06-08 17:06 | CM ---
Wean O2 , IV/Meropenem. Discharge POC: Therapy rec for . [facility], PT[facility]OT.
[2025-06-08] MEDS: NOVOLOG FLEXPEN-MODERATE RESISTANCE 3 UNITS SC (17:10)
[2025-06-08 17:11] LABS: Glucose - Point of Care 215 mg/dl (70-99)
--- NOTE | 2025-06-08 20:47 | W.PN.ONC2 ---
Today's Communication / Plan
-
Pt should be on Venclexta which was added recently at time of AML diagnosis.
will need to bring from home.
Cytopenias were worse when he started Venclexta, as expected, but no endpoint for him if not on AML treatment.
Impression
Impression
Pancytopenia
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
Afib w/ RVR
Seizure, likely from Cefepime
Aspiration w/ pneumonitis/pneumonia, in the setting of seizure
Transient fever after seizure
Weakness
Plan
Plan
Monitor CBC, transfuse to keep hgb > 7 (or higher if recommended per cardiology) and platelets > 15
On empiric Vanco, meropenem (suspect fever and CXR findings related to seizure and subsequent aspiration)
Mgmt of Afib per cardiology
Not a candidate for a/c w/ thrombocytopenia
PT c/s for weakness
Will follow along and make recs as appropriate
Because of likely prolonged neutropenia and lymphopenia with new AML diagnosis, at discharge, he'll benefit from outpatient infection prophylaxis with Levaquin 500mg/d and acyclovir 400mg bid.
Subjective/Objective
Chief Complaint
Heme/Onc follow up of AML
Subjective
Denies new complaint. Stating he wants to get better and have better QOL.
Vital Signs:
Vital Signs
Temp Pulse Resp BP Pulse Ox
98.5 F 78 24 136/57 95
06/08/25 20:01 06/08/25 18:00 06/08/25 17:44 06/08/25 18:00 06/08/25 20:22
Lab Results:
Laboratory Data
WBC 0.2 10^3/uL (4.8-10.8) L* 06/08/25 11:19
Hgb 7.6 g/dL (13.0-18.0) L D 06/08/25 11:19
Plt Count 14 10^3/uL (130-400) L* D 06/08/25 11:19
PT 14.9 Sec (11.4-14.6) H 06/06/25 10:32
INR 1.14 06/06/25 10:32
APTT 33.1 Sec (23.4-35.0) 06/06/25 10:32
eGFR > 60.00 06/08/25 02:25
Physical Exam
Awake, alert, non-toxic
Lungs clear
[2025-06-08 21:24] LABS: Glucose - Point of Care 142 mg/dl (70-99)
--- NOTE | 2025-06-08 21:30 | PTCARENOTE ---
Received pt from previous RN. Pt is AAOx3, RUBY. NSR on the monitor, general +1 edema. Pt on RA O2 sat 93%, lungs diminished. Pt uses the urinal. SCDs in place. Pt refused mouth care. Call bowers in reach. Safe environment maintained.
[2025-06-09] VITALS (21 sets, daily range): BP systolic 120–163; BP diastolic 49–69; BMI 31.3
--- NOTE | 2025-06-09 04:16 | PTCARENOTE ---
Went in pts room to draw AM blood work. Pt asks what medication I previous gave him through his IV which was at 2303, his Merrem dose. Pt states he was having labored breathing and felt itchy, pt states 'the itchiness wasn't too bad'. Pt did not
report this to this RN till approx 0400, pt states it happened hours after the medication was administered. PRN Benadryl offered to pt, pt denied. Pt states he does not want another dose of that antibiotic. ROUTE CDL DRIVER notified, at bedside talking to the pt.
[2025-06-09] MEDS: STERILE WATER FOR INJECTION IV (04:40)
[2025-06-09] MEDS: MERREM IV (04:40)
[2025-06-09 05:18] LABS: Hematocrit 20.8 % (39.0-52.0); Hemoglobin 7.0 g/dL (13.0-18.0); Mean Corp Hgb Conc. 33.7 g/dL (33.0-37.0); Mean Corpuscular Volume 92.4 fL (80.0-94.0); Nucleated Red Blood Cells % 0 % (-); Platelet Count 12 10^3/uL (130-400); Red Cell Dist. Width 14.8 % (11.5-14.5)
--- NOTE | 2025-06-09 05:28 | W.PN.UPDATE ---
Update Note
Progress Note Update
Critical labs received: Hgb 7.0, Hct 20.8. Notes to keep Hgb >7.0. Ordered 1 unit PRBC's to transfuse today.
Platelets 12. Notes to keep platelets > 15. Ordered 1 unit Platelets to transfuse not.
[2025-06-09 05:34] LABS: ALT (SGPT) 18 U/L (0-50); AST (SGOT) 17 U/L (17-59); Albumin 2.8 g/dl (3.5-5.0); Alkaline Phosphatase 46 U/L (38-126); Blood Urea Nitrogen 21 mg/dl (9-20); Calcium 8.0 mg/dl (8.4-10.2); Carbon Dioxide 26 mmol/L (22-30); Chloride 104 mmol/L (98-107); Estimated Creatinine Clearance 76 ml/min; Glucose 145 mg/dl (70-99); Potassium 3.8 mmol/L (3.5-5.1); Sodium 131 mmol/L (135-145); Total Protein 5.2 g/dl (6.3-8.2); eGFR > 60.00
[2025-06-09] MEDS: LOPRESSOR 12.5 MG PO ×4 (06:06→23:18)
[2025-06-09] MEDS: BENADRYL 25 MG IV ×3 (06:16→13:19)
--- NOTE | 2025-06-09 06:42 | PTCARENOTE ---
1 unit PRBCs ordered. Pt premedicated with Benadryl. 15 min VS check complete, VSS.
--- NOTE | 2025-06-09 06:59 | W.PN.CARDCBS ---
Today's Communication / Plan
-
He spontaneously converted to sinus.
Cont Amiodarone load with 400 mg TID
Monitor QTc, check EKG in sinus
Cont Lopressor with parameters
Not currently an anticoagulation candidate with pancytopenia. Receiving transfusion Jun 09.
TSH normal
Echo with preserved EF
Impression / Plan
-
.
Impression:
s/p Rapid atrial fibrillation with history of PAF April 2024, spontaneously converted to sinus
Severe neutropenia with pancytopenia secondary to AML
Neutropenic fever
Left-sided pneumonia on chest x-ray
Possible aspiration during seizure in emergency department
s/p witnessed seizure activity in the emergency department following cefepime, no recurrence
Symptomatic transfusion dependent anemia
Hypotension
Hyponatremia
Hyperglycemia with history of type 2 diabetes mellitus
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
Mild aortic stenosis
Plan:
s/p Rapid atrial fibrillation in the setting of critical illness with symptomatic anemia and severe neutropenia/pancytopenia with neutropenic fever, dehydration/nausea and vomiting
He spontaneously converted to sinus.
Cont Amiodarone load with 400 mg TID
Monitor QTc, check EKG in sinus
Cont Lopressor with parameters
Not currently an anticoagulation candidate with pancytopenia. Receiving transfusion Jun 09.
TSH normal
Echo with preserved EF
Neurology evaluated seizure, potentially from cefepime
-CT of the head without acute findings
-Neuro signed off
s/p shock/hypoxic respiratory distress following seizure status post fluid and blood product resuscitation with transient BiPAP
-Pressors have been weaned off
-Oxygenation has improved now on nasal cannula O2
Fever postprocedure with neutropenia/pancytopenia
-Empiric antibiotics per telephonic case manager and primary service.
-at d/c, benefit from outpatient infection prophylaxis with Levaquin 500mg/d and acyclovir 400mg bid as per oncology
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
-Oncology consulted
-Support with transfusions as needed, receiving transfusion Jun 09
Discussed with nursing.
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
Subjective
Date of Service: June 09, 2025
Pt seen and examined. No complaints. No chest pain or shortness of breath.
Objective
Labs:
06/09/25 04:11
06/09/25 04:11
Labs
Hgb 7.0 g/dL (13.0-18.0) L 06/09/25 04:11
Hct 20.8 % (39.0-52.0) L* 06/09/25 04:11
Plt Count 12 10^3/uL (130-400) L* 06/09/25 04:11
PT 14.9 Sec (11.4-14.6) H 06/06/25 10:32
INR 1.14 06/06/25 10:32
APTT 33.1 Sec (23.4-35.0) 06/06/25 10:32
Sodium 131 mmol/L (135-145) L 06/09/25 04:11
Potassium 3.8 mmol/L (3.5-5.1) 06/09/25 04:11
BUN 21 mg/dl (9-20) H 06/09/25 04:11
Creatinine 0.9 mg/dL (0.7-1.3) 06/09/25 04:11
Glucose 145 mg/dl (70-99) H 06/09/25 04:11
Vital Signs and I&O:
Vital Signs
Temp Pulse Resp BP Pulse Ox
97.6 F 66 12 139/58 96
06/09/25 06:40 06/09/25 06:40 06/09/25 06:40 06/09/25 06:40 06/09/25 06:40
Vital Signs
Temp Pulse Resp BP Pulse Ox
97.6 F 66 12 139/58 96
06/09/25 06:40 06/09/25 06:40 06/09/25 06:40 06/09/25 06:40 06/09/25 06:40
Intake & Output
06/06/25 06/07/25 06/08/25 06/09/25
06:59 06:59 06:59 06:59
Intake Total 3695 / 3775 2850 / 2850 1570 / 1570
Output Total 860 / 860 3400 / 3400 1860 / 1860
Balance 2835 / 2915 -550 / -550 -290 / -290
Physical Exam
Physical Exam
General: No acute distress, AAOX3
Neck: Negative JVD
Heart: Regular, Negative S3 positive S1/S2, Negative S4, No murmur
Lungs: CTA b/l, negative wheezes/rales/rhonchi
Abd: Positive BS, NT/ND, neg rebound/rigidity/guarding
Ext: Negative cyanosis/clubbing/edema
Neuro: nonfocal
[2025-06-09 08:00] LABS: Glucose - Point of Care 171 mg/dl (70-99)
[2025-06-09] MEDS: PACERONE 400 MG PO ×3 (08:04→21:26)
[2025-06-09] MEDS: LANTUS 0.1 UNITS SC (08:04)
[2025-06-09] MEDS: PROTONIX 20 MG PO (08:05)
--- NOTE | 2025-06-09 08:17 | PTCARENOTE ---
report received, assessments per work list. patient denies pain,nausea,dyspnea or itchiness. very slight swelling left upper lip noted. hospitalist sent tiger text regarding this and events of the night(antibiotics placed on hold by [employer] due to
itchiness reported by patient last night). prn dose benadryl administered. awaiting orders
[2025-06-09] MEDS: NOVOLOG FLEXPEN-MODERATE RESISTANCE 1 UNITS SC (08:39)
[2025-06-09] MEDS: NOVOLOG FLEXPEN 4 UNITS SC ×2 (08:40→17:05)
[2025-06-09] MEDS: IMODIUM 2 MG PO ×2 (09:48→16:07)
--- NOTE | 2025-06-09 10:52 | VNURNOTE ---
[facility] liaison met with patient at bedside. Discussed [facility] nurse/therapy, visits, schedule and homebound status. Explained that visits at home are typically 2-3 x per week to assess and teach medical management. patient states he will not be at
home. He plans on returning to work and doing other activities out of the house. Advised him to follow up with family Dr and if he changes his mind and needs VN, PCP can order.
--- NOTE | 2025-06-09 11:19 | W.PN.ONC ---
Today's Communication / Plan
-
Monitor CBC, transfuse to keep hgb > 7 (or higher if recommended per cardiology) and platelets > 15
No evidence for infection
Will resume daily Venetoclax 400mg/d (titration not needed)
to bring in home supply
Will need outpatient bone marrow biopsy on 06/15 per treatment protocol. D/w patient. I've asked my office to send request to IR for outpatient scheduling.
Mgmt of Afib per cardiology
Not a candidate for a/c w/ thrombocytopenia
PT c/s for weakness
Will follow along and make recs as appropriate
Because of likely prolonged neutropenia and lymphopenia with new AML diagnosis, at discharge, he'll benefit from outpatient infection prophylaxis with Levaquin 500mg/d and acyclovir 400mg bid.
Impression
Impression
Pancytopenia
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
Afib w/ RVR
Seizure, likely from Cefepime
Aspiration w/ pneumonitis/pneumonia, in the setting of seizure
Transient fever after seizure
Weakness
Plan
Plan
Monitor CBC, transfuse to keep hgb > 7 (or higher if recommended per cardiology) and platelets > 15
No evidence for infection
Will resume daily Venetoclax 400mg/d (titration not needed)
to bring in home supply
Will need outpatient bone marrow biopsy on 06/15 per treatment protocol. D/w patient. I've asked my office to send request to IR for outpatient scheduling.
Mgmt of Afib per cardiology
Not a candidate for a/c w/ thrombocytopenia
PT c/s for weakness
Will follow along and make recs as appropriate
Because of likely prolonged neutropenia and lymphopenia with new AML diagnosis, at discharge, he'll benefit from outpatient infection prophylaxis with Levaquin 500mg/d and acyclovir 400mg bid.
Subjective/Objective
Subjective/Objective
describes improvement in dizziness w/ ambulation
frustrated about his anemia
Vital Signs:
Vital Signs
Temp Pulse Resp BP Pulse Ox
99.2 F 83 26 133/55 96
06/09/25 09:25 06/09/25 09:25 06/09/25 09:25 06/09/25 09:25 06/09/25 09:25
Lab Results:
Laboratory Data
WBC 0.2 10^3/uL (4.8-10.8) L* 06/09/25 04:11
Hgb 7.0 g/dL (13.0-18.0) L 06/09/25 04:11
Plt Count 12 10^3/uL (130-400) L* 06/09/25 04:11
PT 14.9 Sec (11.4-14.6) H 06/06/25 10:32
INR 1.14 06/06/25 10:32
APTT 33.1 Sec (23.4-35.0) 06/06/25 10:32
eGFR > 60.00 06/09/25 04:11
Orders
Orders
Orders From Last 24 Hours
06/09/25 12:[address] See Dose Instructions PO DIRECTED
--- NOTE | 2025-06-09 11:46 | W.PN.HOSP.TC ---
Today's Communication/Plan
-
Monitor vitals
See plan
Transfuse PRBC and platelet
Continue to monitor CBC
Start ciprofloxacin and acyclovir for prophylaxis
Transfer to telemetry
Continue with Amio and metoprolol per cardiology
Assessment / Plan
Assessment / Plan
Gen-AAOx3, NAD
HEENT-NC, AT, anicteric, clear oral mm
Neck-supple
CV-reg, no M, +S1/S2
Lungs-clear B/L
Abd-soft, NT, ND
Ext-bilateral lower extremity nonpitting edema
Neuro-grossly non-focal
Psych-calm, cooperative
Acute hypoxic respiratory failure -not present on admission but developed after transfusion and seizure yesterday. Suspect aspiration pneumonitis as the etiology after seizure. Doubt TRALI.
Briefly required BiPAP and nasal cannula oxygen. Wean oxygen as tolerated. Currently denies shortness of breath. No significant cough.
BNP 2140. However, doubt acute heart failure.
Overnight appeared to had episode of wheezing after meropenem. Per overnight nurse practitioner. Meropenem now discontinued
Shock -unclear etiology. Differential diagnosis of septic versus other etiology. Afebrile on arrival yesterday in the emergency room but subsequently had a fever after the seizure. Suspect fever related to aspiration pneumonitis.
Nevertheless, blood cultures NGTD. No more fever. Do not think there is infection at this time. DC further meropenem. Per oncology recommendation, start ciprofloxacin and acyclovir for prophylaxis
I would not call this febrile neutropenia as he did not have a fever on arrival.
Random cortisol 66.
Rapid atrial fibrillation -present on arrival. Did receive 1 dose of IV amiodarone at 2:42 PM 06/06 in the emergency room and subsequently converted to sinus tachycardia.
then was back in A-fib again 06/08, cardiology following now started on Amio. monitor Qtc
History of paroxysmal atrial fibrillation
Seizure -in the emergency room 06/06. Suspect due to cefepime administration. No history of seizures. CT head unremarkable. Neurology involved. Did not require seizure medication.
No evidence of tumor lysis syndrome. Uric acid is normal. Phosphorus is normal. Potassium is normal.
Acute on chronic pancytopenia -suspect related to leukemia and Venclexta. Heme-onc following. Known to Dr. Fairbanks.
Owing status post blood transfusion earlier in the hospitalization, now status post PRBC and platelet 06/08. Admission hemoglobin was 6.3. Hemoglobin 02/06, plan for 1 unit PRBC
Platelet count 12 today. 1 unit plt
ANC 200
Transfuse per hematology recommendations..
Per oncology infection prophylaxis with Levaquin 500 mg daily and acyclovir 400 mg twice daily upon dc; however since patient started on amiodarone, this concern for QTc prolongation. Discussed with pharmacy and will instead start patient on
ciprofloxacin and acyclovir
If fever then will need ID evaluation
AML -as above.
Hyponatremia -131. Appears to be hyponatremic for a few weeks now. Cortisol 66, TSH 1.9. Monitor
DM2 with hyperglycemia -hemoglobin A1c 6.1. Hold oral agents. Continue NovoLog corrective scale, add Lantus 10 units daily, NovoLog with meals. Advance diet to diabetic diet.
MICKEY
Hyperlipidemia
Freeman's esophagus
History of nephrolithiasis
Obesity due to excess calories
Full code
I spent a total of 51 minutes with the patient or on the floor. More than 50% of this time involved counseling and coordination of care.
Anticipated Discharge: 24 - 48 hours
Subjective/Interval History
-
Date of Service: June 09, 2025
denies pain
Objective Data
-
Labs:
Laboratory Results
06/09/25
04:11
WBC 0.2 L*
Hgb 7.0 L
Hct 20.8 L*
Plt Count 12 L*
Sodium 131 L
Potassium 3.8
Chloride 104
Carbon Dioxide 26
BUN 21 H
Creatinine 0.9
Glucose 145 H
Calcium 8.0 L
Total Bilirubin 1.1
AST 17
ALT 18
Alkaline Phosphatase 46
Vital Signs:
Vital Signs
Temp Pulse Resp BP Pulse Ox
99.2 F 83 26 133/55 96
06/09/25 09:25 06/09/25 09:25 06/09/25 09:25 06/09/25 09:25 06/09/25 09:25
I&O
06/08/25 06/09/25 06/10/25
06:59 06:59 06:59
Intake Total 2850 / 2850 1570 / 1570 730 / 730
Output Total 3400 / 3400 1860 / 1860 600 / 600
Balance -550 / -550 -290 / -290 130 / 130
[2025-06-09] MEDS: NOVOLOG FLEXPEN SC (11:54)
[2025-06-09] MEDS: NOVOLOG FLEXPEN-MODERATE RESISTANCE SC (11:55)
[2025-06-09 12:04] LABS: Glucose - Point of Care 116 mg/dl (70-99)
[2025-06-09] MEDS: CIPRO 500 MG PO ×2 (12:12→20:02)
[2025-06-09] MEDS: ZOVIRAX 400 MG PO ×2 (12:12→20:02)
--- NOTE | 2025-06-09 12:17 | PTCARENOTE ---
patient level of care telemetry. no changes in assessments. spouse called to bring in patient home medication as ordered by oncology. Pharmacisit updated. call bowers in reach
[2025-06-09] MEDS: FLUSH (NSS) 1 FLUSH IV (14:39)
--- NOTE | 2025-06-09 14:51 | PTCARENOTE ---
platlets completed without reaction. report called to [facility].home med given to pharmacy
--- NOTE | 2025-06-09 14:57 | CM ---
CM reviewed chart and pt with [facility] liaison
PT/OTwith VN recs and referral previously made to VN
Pt does not plan to maintain homebound status on dc
Discharge Disposition- home, no needs
--- NOTE | 2025-06-09 15:10 | PTCARENOTE ---
pt transferred from ICU to room 331 via w/c. denies pain, no sob at rest, requesting PRN Imodium prior to dinner to prevent diarrhea, vss, telemetry maintained, will continue to monitor.
[2025-06-09 17:00] LABS: Glucose - Point of Care 212 mg/dl (70-99)
[2025-06-09] MEDS: NOVOLOG FLEXPEN-MODERATE RESISTANCE 3 UNITS SC (17:05)
[2025-06-09] MEDS: NON-FORMULARY ITEM 1 UNIT PO (19:17)
[2025-06-09 22:02] LABS: Glucose - Point of Care 169 mg/dl (70-99)
[2025-06-10] VITALS (7 sets, daily range): BP systolic 127–139; BP diastolic 54–59; PULSE 72
--- NOTE | 2025-06-10 03:28 | DOWNTIME ---
There was a [employer] Client Branch Rental Manager Downtime on 06/10/2025 from 0100 to 06/10/2025 at 0255. Downtime documentation of patient's care, including medication administrations, has been reconciled in the electronic record per guidelines. Refer to the
patient's paper chart under the miscellaneous tab to see printed paper medication records and downtime forms.
[2025-06-10 05:54] LABS: Hematocrit 22.7 % (39.0-52.0); Hemoglobin 7.6 g/dL (13.0-18.0); Mean Corp Hgb Conc. 33.5 g/dL (33.0-37.0); Mean Corpuscular Volume 90.4 fL (80.0-94.0); Platelet Count 15 10^3/uL (130-400); Red Cell Dist. Width 14.5 % (11.5-14.5)
[2025-06-10] MEDS: LOPRESSOR 12.5 MG PO ×2 (05:58→12:01)
[2025-06-10 06:04] LABS: Nucleated Red Blood Cells % 0 % (-)
[2025-06-10 06:22] LABS: ALT (SGPT) 18 U/L (0-50); AST (SGOT) 18 U/L (17-59); Albumin 2.9 g/dl (3.5-5.0); Alkaline Phosphatase 49 U/L (38-126); Blood Urea Nitrogen 20 mg/dl (9-20); Calcium 7.9 mg/dl (8.4-10.2); Carbon Dioxide 25 mmol/L (22-30); Chloride 103 mmol/L (98-107); Estimated Creatinine Clearance 85 ml/min; Glucose 155 mg/dl (70-99); Potassium 3.9 mmol/L (3.5-5.1); Sodium 131 mmol/L (135-145); Total Protein 5.3 g/dl (6.3-8.2); eGFR > 60.00
[2025-06-10 07:53] LABS: Glucose - Point of Care 212 mg/dl (70-99)
[2025-06-10] MEDS: NOVOLOG FLEXPEN-MODERATE RESISTANCE 3 UNITS SC ×2 (08:45→12:02)
[2025-06-10] MEDS: NOVOLOG FLEXPEN 4 UNITS SC ×3 (08:45→17:10)
[2025-06-10] MEDS: ZOVIRAX 400 MG PO ×2 (08:47→22:09)
[2025-06-10] MEDS: CIPRO 500 MG PO ×2 (08:47→22:09)
[2025-06-10] MEDS: PACERONE 400 MG PO (08:48)
[2025-06-10] MEDS: LANTUS 0.1 UNITS SC (08:57)
[2025-06-10] MEDS: NON-FORMULARY ITEM PO (09:05)
[2025-06-10 11:52] LABS: Glucose - Point of Care 206 mg/dl (70-99)
[2025-06-10] MEDS: PROTONIX 20 MG PO (12:01)
--- NOTE | 2025-06-10 13:39 | W.PN.HOSP.TC ---
Today's Communication/Plan
-
monitor vitals
see plan
transfuse per heme
likely will need outpatient transfusion as appears currently dependant
cw abx
cw amio
Assessment / Plan
Assessment / Plan
Gen-AAOx3, NAD
HEENT-NC, AT, anicteric, clear oral mm
Neck-supple
CV-reg, no M, +S1/S2
Lungs-clear B/L
Abd-soft, NT, ND
Ext-bilateral lower extremity nonpitting edema
Neuro-grossly non-focal
Psych-calm, cooperative
Acute hypoxic respiratory failure -not present on admission but developed after transfusion and seizure yesterday. Suspect aspiration pneumonitis as the etiology after seizure. Doubt TRALI.
Briefly required BiPAP and nasal cannula oxygen. Wean oxygen as tolerated. Currently denies shortness of breath. No significant cough.
BNP 2140. However, doubt acute heart failure.
Overnight appeared to had episode of wheezing after meropenem. Per overnight nurse practitioner. Meropenem now discontinued
Shock -unclear etiology. Differential diagnosis of septic versus other etiology. Afebrile on arrival yesterday in the emergency room but subsequently had a fever after the seizure. Suspect fever related to aspiration pneumonitis.
Nevertheless, blood cultures NGTD. No more fever. Do not think there is infection at this time. DC further meropenem. Per oncology recommendation, start ciprofloxacin and acyclovir for prophylaxis
I would not call this febrile neutropenia as he did not have a fever on arrival.
Random cortisol 66.
Rapid atrial fibrillation -present on arrival. Did receive 1 dose of IV amiodarone at 2:42 PM 06/06 in the emergency room and subsequently converted to sinus tachycardia.
then was back in A-fib again 06/08, cardiology following now started on Amio. monitor Qtc
History of paroxysmal atrial fibrillation
Seizure -in the emergency room 06/06. Suspect due to cefepime administration. No history of seizures. CT head unremarkable. Neurology involved. Did not require seizure medication.
No evidence of tumor lysis syndrome. Uric acid is normal. Phosphorus is normal. Potassium is normal.
Acute on chronic pancytopenia -suspect related to leukemia and Venclexta. Heme-onc following. Known to Dr. Fairbanks.
Owing status post blood transfusion earlier in the hospitalization, now status post PRBC and platelet. Required multiple times blood and platelet transfusion. Likely will need outpatient transfusion per hematology
Platelet count 15 today.
ANC 200
Transfuse per hematology recommendations..
Per oncology infection prophylaxis with Levaquin 500 mg daily and acyclovir 400 mg twice daily upon dc; however since patient started on amiodarone, this concern for QTc prolongation. Discussed with pharmacy and will instead start patient on
ciprofloxacin and acyclovir
If fever then will need ID evaluation
Now back on venetoclax
AML -as above.
Hyponatremia -131. Appears to be hyponatremic for a few weeks now. Cortisol 66, TSH 1.9. Monitor
DM2 with hyperglycemia -hemoglobin A1c 6.1. Hold oral agents. Continue NovoLog corrective scale, add Lantus 10 units daily, NovoLog with meals. Advance diet to diabetic diet.
MICKEY
Hyperlipidemia
Freeman's esophagus
History of nephrolithiasis
Obesity due to excess calories
Full code
I spent a total of 51 minutes with the patient or on the floor. More than 50% of this time involved counseling and coordination of care.
Anticipated Discharge: 24 - 48 hours
Subjective/Interval History
-
Date of Service: June 10, 2025
Denies pain
Objective Data
-
Labs:
Laboratory Results
06/10/25
05:19
WBC 0.2 L*
Hgb 7.6 L
Hct 22.7 L
Plt Count 15 L* D
Sodium 131 L
Potassium 3.9
Chloride 103
Carbon Dioxide 25
BUN 20
Creatinine 0.8
Glucose 155 H
Calcium 7.9 L
Total Bilirubin 1.2
AST 18
ALT 18
Alkaline Phosphatase 49
Vital Signs:
Vital Signs
Temp Pulse Resp BP Pulse Ox
97.7 F 73 18 127/54 96
06/10/25 11:00 06/10/25 11:00 06/10/25 11:00 06/10/25 11:00 06/10/25 11:00
I&O
06/09/25 06/10/25 06/11/25
06:59 06:59 06:59
Intake Total 1570 / 1570 208 / 2085
Output Total 186 / 1860 185 / 185
Balance -290 / -290 236 / 236
--- NOTE | 2025-06-10 15:15 | W.PN.CARDCBS ---
Today's Communication / Plan
-
Decrease amiodarone to 200 mg twice a day for 1 month and then once daily thereafter
Consolidate metoprolol to 25 mg daily of extended release formulation
Stable cardiac status, we will sign off, outpatient follow-up to arranged
Impression / Plan
-
Impression:
s/p Rapid atrial fibrillation with history of PAF April 2024, spontaneously converted to sinus
Severe neutropenia with pancytopenia secondary to AML
Neutropenic fever
Left-sided pneumonia on chest x-ray
Possible aspiration during seizure in emergency department
s/p witnessed seizure activity in the emergency department following cefepime, no recurrence
Symptomatic transfusion dependent anemia
Hypotension
Hyponatremia
Hyperglycemia with history of type 2 diabetes mellitus
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
Mild aortic stenosis
Plan:
s/p Rapid atrial fibrillation in the setting of critical illness with symptomatic anemia and severe neutropenia/pancytopenia with neutropenic fever, dehydration/nausea and vomiting
He spontaneously converted to sinus.
Cont Amiodarone 200 mg BID x1 month and then decrease to 200mg daily
Cont metoprolol XL 25mg daily
Not currently an anticoagulation candidate with pancytopenia. Receiving transfusion Jun 09.
TSH normal
Echo with preserved EF
Stable cardiac status, we will sign off
Outpatient follow-up to be arranged
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
Subjective
Date of Service: June 10, 2025
NAOE. No cardiac complaints. Main issue by his report is balance related.
Objective
Labs:
06/10/25 05:19
06/10/25 05:19
Labs
Hgb 7.6 g/dL (13.0-18.0) L 06/10/25 05:19
Hct 22.7 % (39.0-52.0) L 06/10/25 05:19
Plt Count 15 10^3/uL (130-400) L* D 06/10/25 05:19
PT 14.9 Sec (11.4-14.6) H 06/06/25 10:32
INR 1.14 06/06/25 10:32
APTT 33.1 Sec (23.4-35.0) 06/06/25 10:32
Sodium 131 mmol/L (135-145) L 06/10/25 05:19
Potassium 3.9 mmol/L (3.5-5.1) 06/10/25 05:19
BUN 20 mg/dl (9-20) 06/10/25 05:19
Creatinine 0.8 mg/dL (0.7-1.3) 06/10/25 05:19
Glucose 155 mg/dl (70-99) H 06/10/25 05:19
Vital Signs and I&O:
Vital Signs
Temp Pulse Resp BP Pulse Ox
97.7 F 73 18 127/54 96
06/10/25 11:00 06/10/25 11:00 06/10/25 11:00 06/10/25 11:00 06/10/25 11:00
Vital Signs
Temp Pulse Resp BP Pulse Ox
97.7 F 73 18 127/54 96
06/10/25 11:00 06/10/25 11:00 06/10/25 11:00 06/10/25 11:00 06/10/25 11:00
Intake & Output
06/08/25 06/09/25 06/10/25 06/11/25
06:59 06:59 06:59 06:59
Intake Total 2850 / 2850 1570 / 1570 2085 / 2085
Output Total 3400 / 3400 1860 / 1860 1849 / 1849
Balance -550 / -550 -290 / -290 236 / 236
Physical Exam
Physical Exam
Gen: NAD, AAOx3
HEENT: NC/AT, sclera anicteric
Neck: No JVD
CV: RRR, NL s1/s2, no M/R/G
Lungs: CTAB
Abd: S/ND
Ext: No LE edema
Skin: Warm, dry
--- NOTE | 2025-06-10 16:08 | VATNOTE ---
During routine assessment peripheral vascular access, noted that pt has two peripheral IVs and his port accessed. Pt does not have anything running through any of his lines at this time. Asked pt if he would like me to deaccess his port now that he
is not getting anything continuously IV, pt declined deaccess. States that he might be getting blood products tomorrow and would like to leave the port accessed for that. Pt educated regarding risk of central line infection. States he will have it
deaccessed before he leaves.
[2025-06-10 16:39] LABS: Glucose - Point of Care 154 mg/dl (70-99)
[2025-06-10] MEDS: NOVOLOG FLEXPEN-MODERATE RESISTANCE 1 UNITS SC (17:11)
[2025-06-10] MEDS: NON-FORMULARY ITEM 4 UNIT PO (17:12)
[2025-06-10 21:01] LABS: Glucose - Point of Care 167 mg/dl (70-99)
[2025-06-10] MEDS: PACERONE 200 MG PO (21:54)
[2025-06-11] VITALS (11 sets, daily range): BP systolic 129–152; BP diastolic 57–88; PULSE 70; O2SAT 95; BMI 30.8
[2025-06-11 06:05] LABS: Hematocrit 21.7 % (39.0-52.0); Hemoglobin 7.3 g/dL (13.0-18.0); Mean Corp Hgb Conc. 33.6 g/dL (33.0-37.0); Mean Corpuscular Volume 91.2 fL (80.0-94.0); Platelet Count 14 10^3/uL (130-400); Red Cell Dist. Width 14.2 % (11.5-14.5)
[2025-06-11 06:18] LABS: ALT (SGPT) 19 U/L (0-50); AST (SGOT) 17 U/L (17-59); Albumin 2.9 g/dl (3.5-5.0); Alkaline Phosphatase 48 U/L (38-126); Blood Urea Nitrogen 17 mg/dl (9-20); Calcium 7.8 mg/dl (8.4-10.2); Carbon Dioxide 27 mmol/L (22-30); Chloride 103 mmol/L (98-107); Estimated Creatinine Clearance 85 ml/min; Glucose 170 mg/dl (70-99); Potassium 3.7 mmol/L (3.5-5.1); Sodium 130 mmol/L (135-145); Total Protein 5.3 g/dl (6.3-8.2); eGFR > 60.00
[2025-06-11 07:11] LABS: Nucleated Red Blood Cells % 0 % (-)
[2025-06-11 08:01] LABS: Glucose - Point of Care 197 mg/dl (70-99)
[2025-06-11] MEDS: NOVOLOG FLEXPEN-MODERATE RESISTANCE 1 UNITS SC ×2 (09:26→16:37)
[2025-06-11] MEDS: NOVOLOG FLEXPEN 4 UNITS SC ×3 (09:28→16:37)
[2025-06-11] MEDS: LANTUS 0.1 UNITS SC (09:30)
[2025-06-11] MEDS: PROTONIX 20 MG PO (09:36)
[2025-06-11] MEDS: PACERONE 200 MG PO ×2 (09:36→20:10)
[2025-06-11] MEDS: ZOVIRAX 400 MG PO ×2 (09:37→20:10)
[2025-06-11] MEDS: CIPRO 500 MG PO ×2 (09:37→20:11)
[2025-06-11] MEDS: TOPROL XL 25 MG PO (09:38)
[2025-06-11 11:53] LABS: Glucose - Point of Care 242 mg/dl (70-99)
--- NOTE | 2025-06-11 12:15 | W.PN.HOSP.TC ---
Today's Communication/Plan
-
Monitor vital signs see plan
Transfuse 1 unit of platelets today
Monitor CBC
Continue with Cipro and acyclovir
Continue Amio, metoprolol
Assessment / Plan
Assessment / Plan
Gen-AAOx3, NAD
HEENT-NC, AT, anicteric, clear oral mm
Neck-supple
CV-reg, no M, +S1/S2
Lungs-clear B/L
Abd-soft, NT, ND
Ext-bilateral lower extremity nonpitting edema
Neuro-grossly non-focal
Psych-calm, cooperative
Acute hypoxic respiratory failure -not present on admission but developed after transfusion and seizure yesterday. Suspect aspiration pneumonitis as the etiology after seizure. Doubt TRALI.
Briefly required BiPAP and nasal cannula oxygen. Wean oxygen as tolerated. Currently denies shortness of breath. No significant cough.
BNP 2140. However, doubt acute heart failure.
Overnight appeared to had episode of wheezing after meropenem. Per overnight nurse practitioner. Meropenem now discontinued
Shock -unclear etiology. Differential diagnosis of septic versus other etiology. Afebrile on arrival yesterday in the emergency room but subsequently had a fever after the seizure. Suspect fever related to aspiration pneumonitis.
Nevertheless, blood cultures NGTD. No more fever. Do not think there is infection at this time. DC further meropenem. Per oncology recommendation, on ciprofloxacin and acyclovir for prophylaxis
I would not call this febrile neutropenia as he did not have a fever on arrival.
Random cortisol 66.
Rapid atrial fibrillation -present on arrival. Did receive 1 dose of IV amiodarone at 2:42 PM 06/06 in the emergency room and subsequently converted to sinus tachycardia.
then was back in A-fib again 06/08, cardiology following now started on Amio. monitor Qtc. amiodarone to 200 mg twice a day for 1 month and then once daily thereafter
cw metoprolol to 25 mg daily of extended release
History of paroxysmal atrial fibrillation
Seizure -in the emergency room 06/06. Suspect due to cefepime administration. No history of seizures. CT head unremarkable. Neurology involved. Did not require seizure medication.
No evidence of tumor lysis syndrome. Uric acid is normal. Phosphorus is normal. Potassium is normal.
Acute on chronic pancytopenia -suspect related to leukemia and Venclexta. Heme-onc following. Known to Dr. Fairbanks.
Owing status post blood transfusion earlier in the hospitalization, now status post PRBC and platelet. Required multiple times blood and platelet transfusion. Likely will need outpatient transfusion per hematology
Platelet count 14 today. Give 1 unit PRBC 06/11
ANC 200
Transfuse per hematology recommendations..
Per oncology infection prophylaxis with Levaquin 500 mg daily and acyclovir 400 mg twice daily upon dc; however since patient started on amiodarone, this concern for QTc prolongation. Discussed with pharmacy and will instead start patient on
ciprofloxacin and acyclovir
If fever then will need ID evaluation
Now back on venetoclax
AML -as above.
Hyponatremia -130. Appears to be hyponatremic for a few weeks now. Cortisol 66, TSH 1.9. Monitor
DM2 with hyperglycemia -hemoglobin A1c 6.1. Hold oral agents. Continue NovoLog corrective scale, add Lantus 10 units daily, NovoLog with meals. Advance diet to diabetic diet.
MICKEY
Hyperlipidemia
Freeman's esophagus
History of nephrolithiasis
Obesity due to excess calories
Full code
I spent a total of 51 minutes with the patient or on the floor. More than 50% of this time involved counseling and coordination of care.
Anticipated Discharge: Within 24 hours
Subjective/Interval History
-
Date of Service: June 11, 2025
denies pain
Objective Data
-
Labs:
Laboratory Results
06/11/25
05:24
WBC 0.1 L*
Hgb 7.3 L
Hct 21.7 L
Plt Count 14 L*
Sodium 130 L
Potassium 3.7
Chloride 103
Carbon Dioxide 27
BUN 17
Creatinine 0.8
Glucose 170 H
Calcium 7.8 L
Total Bilirubin 1.2
AST 17
ALT 19
Alkaline Phosphatase 48
Vital Signs:
Vital Signs
Temp Pulse Resp BP Pulse Ox
98.7 F 74 14 133/88 92
06/11/25 12:10 06/11/25 12:10 06/11/25 12:10 06/11/25 12:10 06/11/25 12:10
I&O
06/10/25 06/11/25 06/12/25
06:59 06:59 06:59
Intake Total 2085 / 2085 820 / 820
Output Total 1850 / 1850 1170 / 1170
Balance 236 / 236 -350 / -350
[2025-06-11] MEDS: NOVOLOG FLEXPEN-MODERATE RESISTANCE 3 UNITS SC (12:30)
--- NOTE | 2025-06-11 12:41 | W.PN.ONC ---
Today's Communication / Plan
-
Monitor CBC, transfuse to keep hgb > 7 (or higher if recommended per cardiology) and platelets > 15
Venetoclax 400mg/d
Discussed with blood bank expecting platelets at 4 PM
Anticipate platelet transfusion today
Hold discharge until platelets provided
Patient will be unable to get outpatient transfusion during the weekend so it is important to maximize prior to discharge
Outpatient bone marrow biopsy scheduled
Has follow-up in the office on Sunday
CBCs twice weekly Mondays and with type and cross
Outpatient infection prophylaxis with Levaquin 500mg/d and acyclovir 400mg bid
Impression
Impression
Pancytopenia
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
Afib w/ RVR
Seizure, likely from Cefepime
Aspiration w/ pneumonitis/pneumonia, in the setting of seizure
Transient fever after seizure
Weakness
Subjective/Objective
Subjective/Objective
Frustrated with the prospect of possibly being discharged prior to receiving platelets
Vital Signs:
Vital Signs
Temp Pulse Resp BP Pulse Ox
98.7 F 74 14 133/88 92
06/11/25 12:10 06/11/25 12:10 06/11/25 12:10 06/11/25 12:10 06/11/25 12:10
PE: Unchanged
Lab Results:
Laboratory Data
WBC 0.1 10^3/uL (4.8-10.8) L* 06/11/25 05:24
Hgb 7.3 g/dL (13.0-18.0) L 06/11/25 05:24
Plt Count 14 10^3/uL (130-400) L* 06/11/25 05:24
PT 14.9 Sec (11.4-14.6) H 06/06/25 10:32
INR 1.14 06/06/25 10:32
APTT 33.1 Sec (23.4-35.0) 06/06/25 10:32
eGFR > 60.00 06/11/25 05:24
--- NOTE | 2025-06-11 15:27 | CM ---
Addendum entered by Amy Topete RN 06/12/25 16:18:
MD discharged to home.
Original Note:
Pt received 1 unit plt today .
Oncology involved.
Pt did not want to be home bound hence did not qualify for VN
PLAN Home no needs .
[2025-06-11 16:31] LABS: Glucose - Point of Care 165 mg/dl (70-99)
[2025-06-11] MEDS: NON-FORMULARY ITEM 4 UNIT PO (16:35)
[2025-06-12 03:00] VITALS: BP 144/65
[2025-06-12 06:57] LABS: Hematocrit 22.3 % (39.0-52.0); Hemoglobin 7.5 g/dL (13.0-18.0); Mean Corp Hgb Conc. 32.9 g/dL (33.0-37.0); Mean Corpuscular Volume 89.9 fL (80.0-94.0); Nucleated Red Blood Cells % 0 % (-); Platelet Count 18 10^3/uL (130-400); Red Cell Dist. Width 13.9 % (11.5-14.5)
[2025-06-12 07:00] VITALS: BP 127/60
[2025-06-12 07:10] LABS: ALT (SGPT) 20 U/L (0-50); AST (SGOT) 18 U/L (17-59); Albumin 3.2 g/dl (3.5-5.0); Alkaline Phosphatase 54 U/L (38-126); Blood Urea Nitrogen 15 mg/dl (9-20); Calcium 7.8 mg/dl (8.4-10.2); Carbon Dioxide 27 mmol/L (22-30); Chloride 103 mmol/L (98-107); Estimated Creatinine Clearance 85 ml/min; Glucose 145 mg/dl (70-99); Potassium 3.9 mmol/L (3.5-5.1); Sodium 134 mmol/L (135-145); Total Protein 5.7 g/dl (6.3-8.2); eGFR > 60.00
[2025-06-12 07:29] LABS: Glucose - Point of Care 183 mg/dl (70-99)
[2025-06-12] MEDS: PROTONIX 20 MG PO (08:32)
[2025-06-12] MEDS: ZOVIRAX 400 MG PO (08:33)
[2025-06-12] MEDS: TOPROL XL 25 MG PO (08:33)
[2025-06-12] MEDS: LANTUS 0.1 UNITS SC (08:33)
[2025-06-12] MEDS: PACERONE 200 MG PO (08:34)
[2025-06-12] MEDS: NOVOLOG FLEXPEN 4 UNITS SC ×2 (08:34→13:10)
[2025-06-12] MEDS: NOVOLOG FLEXPEN-MODERATE RESISTANCE 1 UNITS SC (08:34)
[2025-06-12] MEDS: CIPRO 500 MG PO (08:35)
[2025-06-12 11:00] VITALS: BP 128/56; BMI 30.8
--- NOTE | 2025-06-12 11:39 | W.PN.HOSP.TC ---
Addendum entered and electronically signed by Tyree Bowden MD 06/12/25 12:31:
Discussed with hematology. They are okay with patient being discharged today. They will follow-up with patient on Sunday with repeat blood work
Time of discharge 39 minutes
Original Note:
Today's Communication/Plan
-
Monitor vital signs and see plan
Monitor CBC
Awaiting on hematology regarding disposition today. Patient will follow-up with hematology early next week and likely will need frequent transfusions.
cw amio,metoprolol
cw ppx cipro and acyclovir
Assessment / Plan
Assessment / Plan
Gen-AAOx3, NAD
HEENT-NC, AT, anicteric, clear oral mm
Neck-supple
CV-reg, no M, +S1/S2
Lungs-clear B/L
Abd-soft, NT, ND
Ext-bilateral lower extremity nonpitting edema
Neuro-grossly non-focal
Psych-calm, cooperative
Acute hypoxic respiratory failure -not present on admission but developed after transfusion and seizure. Suspect aspiration pneumonitis as the etiology after seizure. Doubt TRALI.
Briefly required BiPAP and nasal cannula oxygen. Wean oxygen as tolerated. Currently denies shortness of breath. No significant cough.
BNP 2140. However, doubt acute heart failure.
Overnight appeared to had episode of wheezing after meropenem. Per overnight nurse practitioner. Meropenem now discontinued
now resolved. on room air
Shock -unclear etiology. Differential diagnosis of septic versus other etiology. Afebrile on arrival yesterday in the emergency room but subsequently had a fever after the seizure. Suspect fever related to aspiration pneumonitis.
Nevertheless, blood cultures NGTD. No more fever. Do not think there is infection at this time. DC further meropenem. Per oncology recommendation, on ciprofloxacin and acyclovir for prophylaxis
I would not call this febrile neutropenia as he did not have a fever on arrival.
Random cortisol 66.
Rapid atrial fibrillation -present on arrival. Did receive 1 dose of IV amiodarone at 2:42 PM 06/06 in the emergency room and subsequently converted to sinus tachycardia.
then was back in A-fib again 06/08, cardiology following now started on Amio. monitor Qtc. amiodarone to 200 mg twice a day for 1 month and then once daily thereafter
cw metoprolol to 25 mg daily of extended release
History of paroxysmal atrial fibrillation
Seizure -in the emergency room 06/06. Suspect due to cefepime administration. No history of seizures. CT head unremarkable. Neurology involved. Did not require seizure medication.
No evidence of tumor lysis syndrome. Uric acid is normal. Phosphorus is normal. Potassium is normal.
Acute on chronic pancytopenia -suspect related to leukemia and Venclexta. Heme-onc following. Known to Dr. Fairbanks.
Owing status post blood transfusion earlier in the hospitalization, now status post PRBC and platelet. Required multiple times blood and platelet transfusion. Likely will need outpatient transfusion per hematology
Platelet count 14 today. Give 1 unit plt 06/11
ANC 200
Transfuse per hematology recommendations..
Per oncology infection prophylaxis with Levaquin 500 mg daily and acyclovir 400 mg twice daily upon dc; however since patient started on amiodarone, this concern for QTc prolongation. Discussed with pharmacy and will instead start patient on
ciprofloxacin and acyclovir
If fever then will need ID evaluation
Now back on venetoclax
AML -as above.
Hyponatremia -134. Appears to be hyponatremic for a few weeks now. Cortisol 66, TSH 1.9. Monitor
DM2 with hyperglycemia -hemoglobin A1c 6.1. Restart oral agents on discharge. Continue NovoLog corrective scale, add Lantus 10 units daily, NovoLog with meals. Advance diet to diabetic diet.
MICKEY
Hyperlipidemia
Freeman's esophagus
History of nephrolithiasis
Obesity due to excess calories
Full code
Anticipated Discharge: Today
Subjective/Interval History
-
Date of Service: June 12, 2025
denies pain
Objective Data
-
Labs:
Laboratory Results
06/12/25
06:22
WBC 0.2 L*
Hgb 7.5 L
Hct 22.3 L
Plt Count 18 L* D
Sodium 134 L
Potassium 3.9
Chloride 103
Carbon Dioxide 27
BUN 15
Creatinine 0.8
Glucose 145 H
Calcium 7.8 L
Total Bilirubin 1.2
AST 18
ALT 20
Alkaline Phosphatase 54
Vital Signs:
Vital Signs
Temp Pulse Resp BP Pulse Ox
98.6 F 71 18 128/56 95
06/12/25 11:00 06/12/25 11:00 06/12/25 11:00 06/12/25 11:00 06/12/25 11:00
I&O
06/11/25 06/12/25 06/13/25
06:59 06:59 06:59
Intake Total 820 / 820 1504 / 1504 480 / 480
Output Total 1170 / 1170 425 / 425 1050 / 1050
Balance -350 / -350 1079 / 1079 -570 / -570
[2025-06-12 11:53] LABS: Glucose - Point of Care 253 mg/dl (70-99)
--- NOTE | 2025-06-12 12:36 | W.DCSUMMARY ---
Discharge Summary
Discharge Data
Date of Admission: 06/06/25
Date of Discharge: 06/12/25
-
Pending Results: No
Hospital Course
79-year-old male with past medical history of pancytopenia, AML, diabetes mellitus, MICKEY, hyperlipidemia, Freeman's esophagus, nephrolithiasis, obesity came to the hospital with generalized fatigue and new onset atrial fibrillation with RVR. Patient
also had acute vomiting and suspected had bouts of aspiration which was likely the cause of his fever in the hospital. Cefepime was given in the ED and appeared patient likely had seizure after which was witnessed. He was seen by neurology and no
further antiepileptic was given since only 1 episode. Subsequently patient was admitted in ICU for possible shock and was put on empiric antibiotic. It appeared that patient likely had aspiration pneumonitis and later on antibiotics was
discontinued. For his atrial fibrillation he was started on amiodarone load along with metoprolol. He subsequently also converted to normal sinus rhythm. Cardiology instructed patient to follow-up with them closely outpatient. For his acute on
chronic pancytopenia he was seen by hematology and required multiple time blood and platelet transfusion. Hematology recommended bone marrow biopsy which will be done on 06/11/2025 along with repeat CBC. Patient was also put on acyclovir
and ciprofloxacin for prophylaxis given prolonged neutropenia and lymphopenia. Once patient blood counts were stable, he was then discharged home with close instructions to follow-up with all his physicians outpatient.
Discharge Plan
-
Patient Disposition: Home with Home Care
Discharge Diagnosis/Procedures: Acute hypoxic respiratory failure
Shock
Atrial fibrillation with rapid ventricular rate
Seizure
Acute on chronic pancytopenia related to leukemia
Hyponatremia
Diabetes mellitus
Condition: Fair
Diet: Diabetic, Carb Controlled
Activity: As tolerated
Driving Restrictions: As prior to admission
Bathing Restrictions: None
Blood Work: CBC on Sunday with hematology
Activity Restrictions/Additional Instructions:
amiodarone to 200 mg twice a day for 1 month and then once daily thereafter
Referrals:
Carley Fairbanks MD [Active, Oncology] - in less than 1 week
Lucia Baptiste DO [Family Provider, Family Practice] - in less than 1 week
Tegan Youngblood DO [Active, Cardiology] - in one to two weeks
Prescriptions:
New
amiodarone [Pacerone] 200 mg Tablet
200 mg PO BID Qty: 60 0RF
ciprofloxacin HCl 500 mg Tablet
500 mg PO BID Qty: 60 0RF
acyclovir 200 mg Capsule
400 mg PO BID 30 Days Qty: 120 0RF
metoprolol succinate 25 mg Tablet Extended Release 24 Hr
25 mg PO DAILY Qty: 30 0RF
Continued
metformin 1,000 MG tablet extended release 24hr
1,000 mg PO BID
glimepiride 2 mg Tablet
2 mg PO DAILY
potassium citrate 10 mEq (1,080 mg) tablet extended release
10 meq PO BID
omeprazole 20 mg Capsule,Delayed Release(Dr/Ec)
20 mg PO DAILY
loperamide 2 mg Tablet
2 mg PO Q4H PRN (Reason: loose stools)
magnesium citrate 100 mg Tablet
100 mg PO DAILY
Venclexta 100 mg tablet
400 mg PO DAILY
Discharge Orders:
Discharge Patient (As Directed); Ordered 06/12/25
Ordered By: Tyree Bowden
Discharge Date and Time
Discharge Date/Time: 06/12/25 15:36
Print Language: ANGUILLAN
[2025-06-12] MEDS: NOVOLOG FLEXPEN-MODERATE RESISTANCE 5 UNITS SC (13:10)
--- NOTE | 2025-06-12 13:22 | W.PN.ONC ---
Today's Communication / Plan
-
counts stable
outpt marrow 06/15
CBC 06/15
Impression
Impression
Pancytopenia
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
Afib w/ RVR
Seizure, likely from Cefepime
Aspiration w/ pneumonitis/pneumonia, in the setting of seizure
Transient fever after seizure
Weakness
Plan
Plan
Monitor CBC, transfuse to keep hgb > 7 (or higher if recommended per cardiology) and platelets > 15
No evidence for infection
Will resume daily Venetoclax 400mg/d (titration not needed)
outpatient bone marrow biopsy on 06/15
outpt f/u Sunday w/ CBC
Because of likely prolonged neutropenia and lymphopenia with new AML diagnosis, at discharge, he'll benefit from outpatient infection prophylaxis with Levaquin 500mg/d and acyclovir 400mg bid.
Subjective/Objective
Subjective/Objective
feels better - afebrile
Vital Signs:
Vital Signs
Temp Pulse Resp BP Pulse Ox
98.6 F 71 18 128/56 95
06/12/25 11:00 06/12/25 11:00 06/12/25 11:00 06/12/25 11:00 06/12/25 11:00
Lab Results:
Laboratory Data
WBC 0.2 10^3/uL (4.8-10.8) L* 06/12/25 06:22
Hgb 7.5 g/dL (13.0-18.0) L 06/12/25 06:22
Plt Count 18 10^3/uL (130-400) L* D 06/12/25 06:22
PT 14.9 Sec (11.4-14.6) H 06/06/25 10:32
INR 1.14 06/06/25 10:32
APTT 33.1 Sec (23.4-35.0) 06/06/25 10:32
eGFR > 60.00 06/12/25 06:22
Exam: unchanged
--- NOTE | 2025-06-12 16:26 | CM ---
MD entered order for discharge.
He said he was ready for discharge.
Family drove him home
Pt did not want to be home bound hence did not qualify for VN
PLAN Home no needs .
== END 2025-06-12 15:36 | disposition home or self-care (01) | DRG 100 ==
LOC: 3 WEST ACU 12:33
PROVIDERS: Physician Assistant; ADMITTING PHYSICIAN Hospitalist; ATTENDING PHYSICIAN Internal Medicine; CONSULT PHYSICIAN Internal Medicine Cardiovascular Disease; CONSULT PHYSICIAN Internal Medicine Critical Care Medicine; CONSULT PHYSICIAN Internal Medicine Hematology & Oncology; EMERGENCY PHYSICIAN Emergency Medicine; FAMILY PHYSICIAN Family Medicine; OTHER PHYSICIAN Psychiatry & Neurology Neurology
PROC: 30233R1 Transfusion of Nonautologous Platelets into Peripheral Vein, Percutaneous Approach (ICD-10-PCS; 2025-06-06)
PROC: 30233N1 Transfusion of Nonautologous Red Blood Cells into Peripheral Vein, Percutaneous Approach (ICD-10-PCS; 2025-06-06)
DX: G40.509 Epileptic seizures related to external causes, not intractable, without status epilepticus (principal); D61.810 Antineoplastic chemotherapy induced pancytopenia; J69.0 Pneumonitis due to inhalation of food and vomit; J96.01 Acute respiratory failure with hypoxia; C92.00 Acute myeloblastic leukemia, not having achieved remission; E87.1 Hypo-osmolality and hyponatremia; C92.20 Atypical chronic myeloid leukemia, BCR/ABL-negative, not having achieved remission; R57.9 Shock, unspecified; D61.818 Other pancytopenia; D70.9 Neutropenia, unspecified; R50.81 Fever presenting with conditions classified elsewhere; Z87.891 Personal history of nicotine dependence; E11.65 Type 2 diabetes mellitus with hyperglycemia; E11.36 Type 2 diabetes mellitus with diabetic cataract; E11.649 Type 2 diabetes mellitus with hypoglycemia without coma; E66.09 Other obesity due to excess calories; Z68.30 Body mass index [BMI] 30.0-30.9, adult; T36.1X5A Adverse effect of cephalosporins and other beta-lactam antibiotics, initial encounter; Z11.52 Encounter for screening for COVID-19
CPT/HCPCS: 36415; 36430; 70450; 71045; 80048; 80053; 82248; 82533; 82805; 82962; 83036; 83605; 83615; 83690; 83735; 83880; 83930; 83935; 84100; 84300; 84443; 84550; 85025; 85610; 85730; 86850; 86900; 86901; 86920; 87040; 87449; 87641; 87811; 87899; 93005; 93306; 96365; 96366; 96375; 97116; 97163; 97167; 99285; J0282; P9016; P9073

== ENCOUNTER → 2025-06-15 07:07 | Outpatient (REF) | payer MEDICARE, OTHER, SELFPAY ==
[2025-06-15] MEDS: ATIVAN 0.5 MG PO (08:03)
[2025-06-15 08:14] VITALS: BP 130/62; BP_SYST 71
[2025-06-15 08:27] LABS: Hematocrit 21.7 % (39.0-52.0); Hemoglobin 7.4 g/dL (13.0-18.0); Mean Corp Hgb Conc. 34.1 g/dL (33.0-37.0); Mean Corpuscular Volume 91.6 fL (80.0-94.0); Nucleated Red Blood Cells % 0 % (-); Platelet Count 23 10^3/uL (130-400); Red Cell Dist. Width 13.7 % (11.5-14.5)
[2025-06-15 08:30] LABS: ALT (SGPT) 17 U/L (0-50); AST (SGOT) 16 U/L (17-59); Albumin 3.4 g/dl (3.5-5.0); Alkaline Phosphatase 58 U/L (38-126); Blood Urea Nitrogen 17 mg/dl (9-20); Calcium 8.5 mg/dl (8.4-10.2); Carbon Dioxide 27 mmol/L (22-30); Chloride 101 mmol/L (98-107); Glucose 159 mg/dl (70-99); LDH 235 U/L (120-246); Potassium 4.3 mmol/L (3.5-5.1); Sodium 132 mmol/L (135-145); Total Protein 6.0 g/dl (6.3-8.2); Uric Acid 3.2 mg/dl (3.5-8.5); eGFR > 60.00
[2025-06-15 09:12] VITALS: BP 121/48; BP_SYST 63
[2025-06-15 09:30] VITALS: BP 125/60; BP_SYST 64
[2025-06-15 10:00] VITALS: BP 125/52
== END ==
LOC: RADI 07:07
PROVIDERS: ATTENDING PHYSICIAN Internal Medicine Hematology & Oncology; FAMILY PHYSICIAN Family Medicine; OTHER PHYSICIAN Physician Assistant
DX: C92.10 Chronic myeloid leukemia, BCR/ABL-positive, not having achieved remission (principal); D61.818 Other pancytopenia; D68.8 Other specified coagulation defects
CPT/HCPCS: 36415; 38222; 77012; 80053; 83615; 84100; 84550; 85025; 88305; 88311; 88312; 88313

== ENCOUNTER 2025-06-17 08:35 | Outpatient (RCR) | payer MEDICARE, OTHER, SELFPAY ==
[2025-05-27 12:00] VITALS: BP 142/62
[2025-05-27 12:22] VITALS: BP 122/43
[2025-05-27 13:55] VITALS: BP 129/49
[2025-05-28 12:31] LABS: Fibrinogen 303 MG/DL (199-459)
[2025-05-29 12:53] VITALS: BP 145/62
[2025-05-29 13:02] VITALS: BP 145/62
[2025-05-29 13:21] LABS: INR 1.22; PT 15.7 Sec (11.4-14.6)
[2025-05-29 13:22] VITALS: BP 124/46
[2025-05-29 13:22] LABS: APTT 32.7 Sec (23.4-35.0); Fibrinogen 240 MG/DL (199-459)
[2025-05-29 13:25] LABS: Hematocrit 19.8 % (39.0-52.0); Hemoglobin 6.6 g/dL (13.0-18.0); Mean Corp Hgb Conc. 33.3 g/dL (33.0-37.0); Mean Corpuscular Volume 98.0 fL (80.0-94.0); Platelet Count 43 10^3/uL (130-400); Red Cell Dist. Width 19.9 % (11.5-14.5)
[2025-05-29 13:41] LABS: ALT (SGPT) 17 U/L (0-50); AST (SGOT) 20 U/L (17-59); Albumin 3.4 g/dl (3.5-5.0); Alkaline Phosphatase 72 U/L (38-126); Blood Urea Nitrogen 21 mg/dl (9-20); Calcium 7.9 mg/dl (8.4-10.2); Carbon Dioxide 24 mmol/L (22-30); Chloride 106 mmol/L (98-107); Glucose 152 mg/dl (70-99); LDH 422 U/L (120-246); Potassium 4.3 mmol/L (3.5-5.1); Sodium 132 mmol/L (135-145); Total Protein 5.8 g/dl (6.3-8.2); Uric Acid 1.4 mg/dl (3.5-8.5); eGFR > 60.00
[2025-05-29 15:11] VITALS: BP 134/56
[2025-06-04 08:15] LABS: Hematocrit 20.1 % (39.0-52.0); Hemoglobin 6.9 g/dL (13.0-18.0); Mean Corp Hgb Conc. 34.3 g/dL (33.0-37.0); Mean Corpuscular Volume 97.6 fL (80.0-94.0); Platelet Count 21 10^3/uL (130-400); Red Cell Dist. Width 16.3 % (11.5-14.5)
[2025-06-04 10:03] LABS: ALT (SGPT) 16 U/L (0-50); AST (SGOT) 19 U/L (17-59); Albumin 4.1 g/dl (3.5-5.0); Alkaline Phosphatase 64 U/L (38-126); Blood Urea Nitrogen 20 mg/dl (9-20); Calcium 9.0 mg/dl (8.4-10.2); Carbon Dioxide 27 mmol/L (22-30); Chloride 102 mmol/L (98-107); Glucose 161 mg/dl (70-99); LDH 332 U/L (120-246); Potassium 4.7 mmol/L (3.5-5.1); Sodium 134 mmol/L (135-145); Total Protein 6.6 g/dl (6.3-8.2); Uric Acid 4.7 mg/dl (3.5-8.5); eGFR > 60.00
[2025-06-05 10:10] VITALS: BP 159/58
[2025-06-05 10:34] VITALS: BP 159/58
[2025-06-05 10:52] VITALS: BP 124/54
[2025-06-05 12:31] VITALS: BP 131/62
[2025-06-16 11:58] LABS: Hematocrit 20.9 % (39.0-52.0); Hemoglobin 7.4 g/dL (13.0-18.0); Mean Corp Hgb Conc. 35.4 g/dL (33.0-37.0); Mean Corpuscular Volume 86.7 fL (80.0-94.0); Nucleated Red Blood Cells % 0 % (-); Platelet Count 23 10^3/uL (130-400); Red Cell Dist. Width 13.7 % (11.5-14.5)
[2025-06-17 08:59] VITALS: BP 143/46
[2025-06-17 09:06] VITALS: BP 143/46
[2025-06-17 09:26] VITALS: BP 113/37
[2025-06-17 11:40] VITALS: BP 126/37
== END 2025-06-19 09:21 | disposition home or self-care (01) ==
LOC: OID 08:35
PROVIDERS: Internal Medicine Hematology & Oncology; ATTENDING PHYSICIAN Nurse Practitioner Adult Health
DX: C92.90 Myeloid leukemia, unspecified, not having achieved remission (principal); C92.20 Atypical chronic myeloid leukemia, BCR/ABL-negative, not having achieved remission (principal); D46.9 Myelodysplastic syndrome, unspecified; D45 Polycythemia vera; R53.81 Other malaise; C92.00 Acute myeloblastic leukemia, not having achieved remission; Z79.899 Other long term (current) drug therapy
CPT/HCPCS: 36430; 36415; 80053; 83615; 84100; 84550; 85025; 85027; 85384; 85610; 85730; 86850; 86900; 86901; 86920; P9016

== ENCOUNTER 2025-06-22 13:19 | Inpatient (IN) | payer MEDICARE, OTHER, SELFPAY ==
[2025-06-22] VITALS (16 sets, daily range): BP systolic 114–140; BP diastolic 45–64
--- NOTE | 2025-06-22 09:47 | ED.GENMED ---
History of Present Illness
General
Chief Complaint: Weakness
Source: patient
Exam Limitations: none
Time Seen by Provider: 06/22/25 09:38
History of Present Illness
History of Present Illness:
See MDM
Past History
Past History
ED Past Medical History: Cancer and NIDDM
ED Past Surgical History: None
Social History
Tobacco: Non-smoker
Alcohol: Occasional
Drug: None
Personal:
Living: with family
Phy Exam
Physical Exam
Physical Exam:
See MDM
Sepsis
Sepsis Screening
Sepsis Assessment: Sepsis Ruled Out
Sepsis Screen
Sepsis Screen: Sepsis Ruled Out
Date: 06/22/25
Time: 11:09
Course
Orders/Labs/Results
Orders:
Orders
06/22/25 08:54
Electrocardiogram (*1) Urgent
Reason for Study: Chest Pain
06/22/25 08:55
EKG- Treatment ONCE
06/22/25 09:55
Type+Screen Urgent
COVID-19 Antigen Urgent
Source: Nasal Swab
Complete Blood Count/With Diff Urgent
Comprehensive Metabolic Panel Urgent
Magnesium Urgent
PTT Urgent
Prothrombin Time Urgent
Influenza A+B Rapid Molecular Urgent
MAT Source: Nasal Swab
Specimen Description:
06/22/25 10:43
Blood Bank Products [* Blood Bank Products] Urgent
's Orders: Mark Roberto, DO
Blood Bank Products: *Packed RBC Leuko (PRBC's
Quantity: 2
Transfuse Today: Yes
Reason: Anemia
Abnormal Lab Results
06/22/25
09:55
WBC 0.1 L* 10^3/uL
(4.8-10.8)
RBC 2.08 L 10^6/uL
(4.70-6.10)
Hgb 6.0 L* g/dL
(13.0-18.0)
Hct 17.4 L* %
(39.0-52.0)
Plt Count 17 L* D 10^3/uL
(130-400)
Absolute Neuts (auto) 0.0 L* 10^3/uL
(1.4-6.5)
Absolute Lymphs (auto) 0.1 L 10^3/uL
(1.2-3.4)
Absolute Monos (auto) 0.0 L 10^3/uL
(0.1-0.6)
Neutrophils % 33.3 L %
(42.2-75.2)
Lymphocytes % 55.6 H %
(20.5-51.1)
Monocytes % 11.1 H %
(1.7-9.3)
PT 17.8 H Sec
(11.4-14.6)
APTT 104.8 H Sec
(23.4-35.0)
AST 14 L U/L
(17-59)
Total Protein 5.8 L g/dl
(6.3-8.2)
Albumin 3.3 L g/dl
(3.5-5.0)
Crossmatch IS Only See Detail
06/22/25 09:55
06/22/25 09:55
Vital Signs
Initial and Last Documented VS:
Initial Vital Signs
Temp Pulse Resp BP Pulse Ox
99.2 F 90 18 124/49 97
06/22/25 08:45 06/22/25 08:45 06/22/25 08:45 06/22/25 08:45 06/22/25 08:45
Last Documented Vital Signs
Temp Pulse Resp BP Pulse Ox
99.2 F 90 18 124/49 97
06/22/25 08:45 06/22/25 08:45 06/22/25 08:45 06/22/25 08:45 06/22/25 09:49
MDM/Problems Addressed
Differential Diagnosis Includes:
Note:
CHIEF COMPLAINT(S)
Weakness and fatigue associated with new chemotherapy regimen.
HISTORY OF PRESENT ILLNESS
The patient is an 79-year-old male with a history of cancer who presented with weakness and fatigue after starting a new chemotherapy regimen, which began on the previous Sunday. He describes that the intake of four chemotherapy pills daily leads to
gastrointestinal distress, specifically an acidic stomach, followed by significant fatigue, requiring him to lie down shortly after administration. He has also been requiring blood transfusions every more recently. The patient expresses concern that
the new medication regimen is adversely affecting his quality of life, stating, 'Im looking for quality, not quantity.' The patient also indicated that prior medication changes were due to suboptimal results with the previous therapy.
PAST MEDICAL AND SURGICAL HISTORY
Not explicitly discussed.
SOCIAL DETERMINANTS OF HEALTH
The patient indicated previous employment where he could work for three to four hours before experiencing fatigue, but now expresses difficulty in maintaining activity, such as engaging with his pet. The patient resides alone and has a supportive
role from a pet for companionship.
PHYSICAL EXAM
General: Alert, no acute distress.
Skin: Warm, dry. Pale
Head: Normocephalic, atraumatic
Neck: Appears supple, trachea midline.
Eyes, Ears, Nose, Mouth, and Throat: Moist mucous membranes
Cardiovascular: No signs of cyanosis. Regular rate and rhythm
Respiratory: Respirations are non-labored.
Abdomen: Non-distended
Musculoskeletal: No deformities
Neurological: No focal neurological deficit observed.
Psychiatric: Cooperative, appropriate mood and affect.
PLAN
Perform laboratory tests to assess the need for blood transfusions and possibly determine whether symptoms are attributable to the chemotherapy medication. Consider potential adjustments in chemotherapy dosing or exploring alternative treatment
regimen options.
DIFFERENTIAL DIAGNOSIS
The Differential Diagnosis includes, in no particular order and is not limited to:
- Chemotherapy-induced pancytopenia
- Anemia due to bone marrow suppression
- Medication side effects
- Infection (consider COVID-19 and influenza)
- Other malignancy-related symptoms
- Chronic fatigue syndrome
- Electrolyte imbalance
- Depression or anxiety related to illness
- Hypothyroidism
- Heart failure
SUMMARY OF ENCOUNTER
The patient was seen in the emergency department for evaluation of weakness and fatigue believed to be related to the initiation of a new chemotherapy regimen. The management included assessing potential causes of symptoms through laboratory testing
and considering adjustment in chemotherapy medication as a source of symptoms.
MEDICAL DECISION MAKING
-Complexity of Problems Addressed: Chronic conditions affecting care include the patients cancer and current chemotherapy regimen. The discussion centered around medication effects on quality of life and the need for frequent transfusions.
-Data:
Category 1: Tests and documents
- Need for laboratory work-up to evaluate possible transfusion requirement due to weakness and fatigue.
Category 2: Assessment requiring an independent historian(s)
- No additional historians were mentioned in the conversation.
-Risk:
Consideration of escalation of care or admission if laboratory evidence suggests a need. There is significant concern about the side effects of chemotherapy impacting the patients quality of life.
DIAGNOSIS
- Adverse effect of chemotherapy (ICD-10-CM T45.1X5A)
- Anemia secondary to chemotherapy (ICD-10-CM D64.9)
EKG
My independent EKG interpretation is:
- Normal sinus rhythm at 85 beats per minute
- Normal axis
- No ectopic beats observed
- No ST segment elevation or depression
SUMMARY OF ENCOUNTER
The patient presented to the emergency department with weakness and fatigue attributed to starting a new chemotherapy regimen. A review of lab results showed anemia with a hemoglobin of 6, prompting the administration of two units of packed red
blood cells. Additional findings included thrombocytopenia, neutropenia, and leukopenia, conditions noted to be chronic.
DISPOSITION
Admit for further treatment.
PLAN
Admit the patient for further evaluation and management of anemia, thrombocytopenia, neutropenia, and leukopenia; monitor blood counts closely, and consider modification of the chemotherapy regimen in consultation with oncology.
INDEPENDENT REVIEW OF LABS AND INTERPRETATION OF TESTS
My independent review of CBC shows anemia with a hemoglobin level of 6, thrombocytopenia at a level of 17, chronic neutropenia, and chronic leukopenia.
MEDICAL DECISION MAKING
-Complexity of Problems Addressed:
Chronic conditions affecting care include the patients cancer and current chemotherapy regimen. The differential diagnosis includes chemotherapy-induced pancytopenia, anemia due to bone marrow suppression, medication side effects, infection
(COVID-19/influenza), other malignancy-related symptoms, chronic fatigue syndrome, electrolyte imbalance, depression or anxiety related to illness, hypothyroidism, and heart failure.
-Data:
Category 1:
Relevant lab tests included CBC for assessment of anemia, thrombocytopenia, neutropenia, and leukopenia.
-Risk:
Prescription medication was administered in the form of packed red blood cells for anemia due to chemotherapy.
DIAGNOSIS
Adverse effect of chemotherapy (ICD-10-CM T45.1X5A)
Anemia secondary to chemotherapy (ICD-10-CM D64.9)
Thrombocytopenia (ICD-10-CM D69.6)
Neutropenia (ICD-10-CM D70.9)
Leukopenia (ICD-10-CM D72.819)
*Pulse Oximetry
SaO2: 97
Oxygen Mode of Delivery: Room air
Patient hypoxic: no
*Critical Care Note
Total Time (30-74mins, 75-104mins- exclusive of procedures): 33 min
comment:
The high probability of a clinically significant, sudden or life threatening deterioration of the cardiovascular system(s) required my full and direct attention, intervention and personal management. The aggregate critical care time was 33 minutes.
This time is in addition to time spent performing reported procedures but includes the following:
[x] Data Review and interpretation
[x] Patient assessment and monitoring of vital signs
[x] Documentation
[x] Medication orders and management
ED Attending Note
-
Portions of this chart may have been created with voice recognition software.� Occasional wrong word or��sound alike� substitutions may have occurred due to the inherent limitations of voice recognition software.
Discharge Plan
Departure
Patient Disposition: Admit
Date of Disposition: 06/22/25
Time of Disposition: 10:48
Admit to: Med/Surg
Presentation/result/management discussed w/ accepting MD/DO: Hospitalist
Discharge Problem:
Symptomatic anemia, Thrombocytopenia, Leukopenia
Prescriptions:
No Action
metformin 1,000 MG tablet extended release 24hr
1,000 mg PO BID
glimepiride 2 mg Tablet
2 mg PO DAILY
potassium citrate 10 mEq (1,080 mg) tablet extended release
10 meq PO BID
omeprazole 20 mg Capsule,Delayed Release(Dr/Ec)
20 mg PO DAILY
loperamide 2 mg Tablet
2 mg PO TIDPRN PRN (Reason: loose stools)
Venclexta 100 mg tablet
400 mg PO DAILY
amiodarone [Pacerone] 200 mg Tablet
200 mg PO BID Qty: 60 0RF
ciprofloxacin HCl 500 mg Tablet
500 mg PO BID Qty: 60 0RF
acyclovir 200 mg Capsule
400 mg PO BID 30 Days Qty: 120 0RF
metoprolol succinate 25 mg Tablet Extended Release 24 Hr
25 mg PO DAILY Qty: 30 0RF
Referrals:
Lucia Baptiste DO [Family Provider, Family Practice]
Interventions
Interventions:
*Risk Screen - Suicide Last Done: 06/22/25 08:50
*General Assessment Last Done: 06/22/25 08:50
*Neglect/Abuse Screening Last Done: 06/22/25 08:50
Discharge Date and Time
Print Language: TURKISH
[2025-06-22 10:19] LABS: Hematocrit 17.4 % (39.0-52.0); Hemoglobin 6.0 g/dL (13.0-18.0); Mean Corp Hgb Conc. 34.5 g/dL (33.0-37.0); Mean Corpuscular Volume 83.7 fL (80.0-94.0); Nucleated Red Blood Cells % 0 % (-); Platelet Count 17 10^3/uL (130-400); Red Cell Dist. Width 13.4 % (11.5-14.5)
[2025-06-22 10:26] LABS: INR 1.45; PT 17.8 Sec (11.4-14.6)
[2025-06-22 10:28] LABS: APTT 104.8 Sec (23.4-35.0)
[2025-06-22 10:56] LABS: AST (SGOT) 14 U/L (17-59); Albumin 3.3 g/dl (3.5-5.0); Blood Urea Nitrogen 18 mg/dl (9-20); Carbon Dioxide 25 mmol/L (22-30); Total Protein 5.8 g/dl (6.3-8.2); eGFR > 60.00
[2025-06-22 10:57] LABS: COVID-19 Antigen Negative (Negative)
[2025-06-22 11:35] LABS: ALT (SGPT) 14 U/L (0-50); Alkaline Phosphatase 56 U/L (38-126); Calcium 8.4 mg/dl (8.4-10.2); Chloride 101 mmol/L (98-107); Glucose 175 mg/dl (70-99); Magnesium 1.9 mg/dl (1.6-2.3); Potassium 4.3 mmol/L (3.5-5.1); Sodium 130 mmol/L (135-145)
--- NOTE | 2025-06-22 12:12 | HPS.HSE ---
Addendum entered and electronically signed by Villa Chan MD 06/22/25 15:24:
I saw and examined the patient.
The LOZENGE MAKER or PA's note was reviewed and I agree with the note.
Comment: 79-year-old male with past medical history significant for hypertension, hyperlipidemia, atrial fibrillation, type 2 diabetes, AML and CML, now with recent change of chemo to Venclexta - now presents for generalized weakness. quality fo
life has decreased tremendously. CAnnot move much and this is not how he wants to live. Has Onc f/u for 2nd opinion. Pancytopenic. Hgb 6. being transfused 1u. No active bleeding. Hyponatremia noted - mild. Normotensive, afebrile. Transfuse 1 unit,
maintain hemoglobin goal greater than 7. Hyponatremia most likely hypovolemic, monitor with transfusion. Follow-up oncology and palliative care consult. Patient appears depressed, may benefit from psychiatry as well.
Original Note:
Family Physician
-
Family Physician: Lucia Baptiste
Chief Complaint
-
generalized weakness
History of Present Illness
Patient is a 79-year-old male with past medical history significant for hypertension, hyperlipidemia, atrial fibrillation, type 2 diabetes, AML and CML who presented to [facility] ED for evaluation of generalized weakness. Patient reports recent change in
chemo regimen to Venclexta. With that change he has noticed that his quality fo life has decreased tremendously, he notes just after taking medication he has nausea and usually within 15 minutes needs to go to bed. Despite sleeping following
medication he feels he spends all of his time on the couch and not moving around. He reports that he has also need blood transfusions almost every 3 days since the start of this chemo regimen. Patient follows with Dr. Fairbanks at [facility] and has an
appointment Sunday with a different physician for a second opinion (met him during last hospitalization and liked him). He states, 'I am not looking for quantity of time but quality.' He believes that oncology is looking for quantity. He
expresses want for oncology to give more information of where he is at. He endorses chronic diarrhea. Denies any fever, chills, cough, shortness of breath, chest pain, vomiting, constipation or urinary symptoms.
Medical History
Past Medical History
Past Medical History: Reports Other
Additional Past Medical History:
hypertension
hyperlipidemia
atrial fibrillation
type 2 diabetes
AML
CML
colon polyps
Freeman's esophagus
nephrolithiasis
MICKEY
Past Surgical History: Reports Appendectomy, Cholecystectomy and Other
Additional Past Surgical History:
Vasectomy
Ear surgery
Uteroscopy
Bilateral cataract surgery
cholecystectomy ([facility]) 05/20/2024
Appendectomy
Social History
Tobacco: Former Smoker
Alcohol: None
Drug: None
Personal:
Living: With Family
Family History
Family History: Not pertinent
Allergies / Home Medications
Allergies reflects when Allergies were last updated in [facility].
Home Medications with original date entered in [facility]
Allergy/Medication List:
Allergies
Allergy/AdvReac Type Severity Reaction Status Date / Time
Rqjsple-[id number]-VrF Reductase Allergy muscle Verified 06/22/25 08:45
Inhibitor ([id number]-[id number] cramps
Reductase Inhibitor)
cefepime AdvReac Severe Pharmacy Verified 06/22/25 08:45
to Review
Home Medications
metformin 1,000 mg tablet,extended release 24hr (osmotic) 1,000 mg PO BID Diabetes 03/27/17
glimepiride 2 mg tablet 2 mg PO DAILY Diabetes 12/22/22
potassium citrate 10 mEq (1,080 mg) tablet,extended release 10 meq PO BID Electrolyte Repletion 10/18/23
omeprazole 20 mg capsule,delayed release 20 mg PO DAILY Gastrointestinal Issue 05/17/24
loperamide 2 mg tablet 2 mg PO TIDPRN PRN loose stools 06/06/25
venetoclax 100 mg tablet (Venclexta) 400 mg PO DAILY Antineoplastic Agent 06/06/25
acyclovir 200 mg capsule 400 mg (2 x 200 mg) PO BID 30 days #120 caps 06/12/25
amiodarone 200 mg tablet (Pacerone) 200 mg PO BID #60 tabs 06/12/25
ciprofloxacin HCl 500 mg tablet 500 mg PO BID prophylaxis #60 tabs 06/12/25
metoprolol succinate 25 mg tablet,extended release 24 hr 25 mg PO DAILY #30 tabs 06/12/25
Review of Systems
-
History Source: Patient
Constitutional: Reports Fatigue; Denies Fever or Chills
EENT: Denies Sore Throat
Respiratory: Denies Cough or Trouble Breathing
Cardiac: Denies Chest Pain, Diaphoresis, Palpitations or Syncope
Abdomen/GI: Reports Nausea and Diarrhea; Denies Abdominal Pain, Vomiting or Constipated
: Denies Dysuria, Frequency or Urgency
Musculoskeletal: Denies Joint Pain
Skin: Denies Rash
Neurological: Reports Weakness; Denies Dizzy, Headache or Numbness
Endocrine: Denies Polyuria
Physical Exam
Vital Signs
Vital Signs
Temp Pulse Resp BP Pulse Ox
99.2 F 90 18 124/49 97
06/22/25 08:45 06/22/25 08:45 06/22/25 08:45 06/22/25 08:45 06/22/25 09:49
Physical Exam
General: Well Developed, Well Nourished, No Apparent Distress, Comfortable, Conversant and Obese
HEENT: NormoCephalic, PERRLA, Nose Appears Normal and Ears Appear Normal
Respiratory: Clear and Non Labored Respirations; No Wheezes, Rales or Rhonchi
Cardiac: Regular Rhythm and Peripheral Edema; No Murmur, Rub or Gallop
GI: Soft, Non Tender, Non Distended and Normal Bowel Sounds
Musculoskeletal: No Clubbing and No Cyanosis
Skin: Warm, IV/Catheter Site and Other (pale)
Neuro: Awake and AO x 3
Psych: Calm and Intact Judgment/Insight
Laboratory Results
-
06/22/25 09:55
06/22/25 09:55
Laboratory Results
PT 17.8 Sec (11.4-14.6) H 06/22/25 09:55
INR 1.45 06/22/25 09:55
APTT 104.8 Sec (23.4-35.0) H 06/22/25 09:55
Total Bilirubin 1.1 mg/dl (0.2-1.3) 06/22/25 09:55
AST 14 U/L (17-59) L 06/22/25 09:55
ALT 14 U/L (0-50) 06/22/25 09:55
Alkaline Phosphatase 56 U/L (38-126) 06/22/25 09:55
Data Reviewed
-
Lab Data: Labs Reviewed by me (WBC 0.1, hgb 6.0, hct 17.4, plt 17, neut 33.3, PT 17.8, INR 1.45, PTT 104.8, Na 130)
Impression/Plan
-
IMPRESSION/PLAN:
#generalized weakness 2/2 infectious process vs. chemo regimen vs. symptomatic anemia
#AML
#CML
WBC 0.1, hgb 6.0, hct 17.4, PT 17.8, INR 1.45, PTT 104.8
Covid: negative
Influenza: negative
EKG: NORMAL SINUS RHYTHM
NONSPECIFIC ST ABNORMALITY
- Admit to med/surg
- Consult heme/onc
- Consult palliative care
- transfuse for hgb < 7.0
- 2 units PRBCs ordered
- monitor for bleeding
- trend h/h
#chronic pancytopenia
r/t underlying leukemia
plt 17
- monitor CBC
#hyponatremia
Na 130
appears to be baseline
- monitor BMP
#atrial fibrillation
- continue amiodarone and metoprolol
#type 2 diabetes
- AccuCheck AC & HS
- SSI
- hold glipizide and metformin
#hypertension
#hyperlipidemia
Code status: DNR
DVT prophylaxis: SCDs
--- NOTE | 2025-06-22 13:35 | CM ---
Chart reviewed Spoke with patient at ED bedside
Recent admission 06/06- He declined VN set up
New chemo started
Lives with 1 SH 3 LORIE
Independent
RW for ambulation outside
PCP Dr. Lucia Baptiste
RX plan yes
Pharmacy [facility]
no hx of VN; declined VN referral last time
hx of SNF
DCP is to go home
CM will continue to follow up for any dcp needs .
[2025-06-22] MEDS: ZOVIRAX 400 MG PO (20:10)
[2025-06-22] MEDS: CIPRO 500 MG PO (20:10)
[2025-06-22] MEDS: PACERONE 200 MG PO (20:10)
[2025-06-22] MEDS: UROCIT-K 10 MEQ PO (20:13)
--- NOTE | 2025-06-22 20:20 | PTCARENOTE ---
Patient is currently ordered for continuous telemetry monitoring per protocol due to taking 400 mg daily Amiodarone. Upon attempt to apply telemetry, the patient refused to wear the monitor. The patient was educated on the purpose of telemetry and
the associated risks of refusing monitoring, including the inability to detect potential arrhythmias. Patient verbalized understanding of these risks but continued to decline telemetry monitoring. AUT[employer]LE [employer]DER was notified of the refusal. Plan of care
ongoing.
[2025-06-22] MEDS: TYLENOL 650 MG PO (20:22)
[2025-06-23 04:59] LABS: Hematocrit 21.5 % (39.0-52.0); Hemoglobin 7.6 g/dL (13.0-18.0); Mean Corp Hgb Conc. 35.3 g/dL (33.0-37.0); Mean Corpuscular Volume 81.4 fL (80.0-94.0); Nucleated Red Blood Cells % 0 % (-); Platelet Count 14 10^3/uL (130-400); Red Cell Dist. Width 13.4 % (11.5-14.5)
[2025-06-23 05:01] LABS: Blood Urea Nitrogen 15 mg/dl (9-20); Calcium 8.4 mg/dl (8.4-10.2); Carbon Dioxide 28 mmol/L (22-30); Chloride 98 mmol/L (98-107); Glucose 184 mg/dl (70-99); Potassium 4.3 mmol/L (3.5-5.1); Sodium 129 mmol/L (135-145); eGFR > 60.00
[2025-06-23 08:14] VITALS: BP 132/56
[2025-06-23] MEDS: CIPRO 500 MG PO (08:21)
[2025-06-23] MEDS: PROTONIX 40 MG PO (08:21)
[2025-06-23] MEDS: PACERONE 200 MG PO (08:22)
[2025-06-23] MEDS: UROCIT-K 10 MEQ PO (08:22)
[2025-06-23] MEDS: AMARYL 2 MG PO (08:22)
[2025-06-23] MEDS: TOPROL XL 25 MG PO (08:22)
[2025-06-23] MEDS: ZOVIRAX 400 MG PO (08:22)
--- NOTE | 2025-06-23 09:20 | CON.ONC ---
Consultation
-
Date Consultation Requested: 06/22/25
Date Consultation Performed: 06/23/25
Requesting Provider: BETTE Chapman
Performing Provider: Dr Carley Fairbanks
Reason for Consultation: leukemia
Impression
Impression
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
Previously on Dacogen/gilteritinib for almost 3 years, switched to Dacogen/venetoclax as of 05/25/25
Symptomatic anemia
Indigestion
Plan
Plan
I reviewed the results of flow cytometry from 06/15/25 BM bx, showing decrease in blasts. Full BM biopsy pending.
Discussed the complexities of treating AML, including symptomatic cytopenias to be expected due to disease and the treatment. Discussed Sunday/ lab draws and /Sunday transfusions
Re: treatment options, could continue venetoclax/Dacogen for another cycle or 2 in hopes of better AML control and some recovery of healthy blood counts. If he decides against continued aggressive therapy, then hospice is most appropriate.
(Treatment of AML is really all or nothing.)
Continue PPI. Would d/c on BID PPI.
He hopes to be discharged today so that he can keep his appt tomorrow with Dr. Ramos. No objection to d/c from my standpoint.
Patient History
History of Present Illness
This is an 79 yo man with history of atypical CML, diagnosed in early 2021. 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 His disease was under
very good control for years, until cytopenias developed in summer 2024, leading to repeat bone marrow biopsy, which showed transformation to AML.
He initiated treatment with venetoclax and Dacogen in early May 2025. His recent course has been complicated by symptomatic anemia, requiring transfusions.
BM biopsy was updated 06/15, after cycle #1. Flow cytometry is noted for decrease in blasts, to ~12%, from ~24% in April.
He was admitted yesterday with hgb of 6 and weakness. He rec'd 1u PRBCs and hgb is 7.6 currently.
He reports that Venetoclax gives him indigestion.
He is angry with 'lack of communication' and decreased quality of life, and last week requested that I no longer be his doctor. He is scheduled to meet with Dr. Ramos tomorrow. He's not happy to see me.
Past-Medical/Surgical History
as per the HPI
Patient Medication
�Medication �Instructions �Recorded �Confirmed �Last Taken �Type
metformin 1,000 mg tablet,extended 1,000 mg PO BID Diabetes 03/27/17 06/22/25 06/21/25 History
release 24hr (osmotic)
glimepiride 2 mg tablet 2 mg PO DAILY Diabetes 12/22/22 06/22/25 06/21/25 History
potassium citrate 10 mEq (1,080 10 meq PO BID Electrolyte Repletion 10/18/23 06/22/25 06/21/25 History
mg) tablet,extended release
omeprazole 20 mg capsule,delayed 20 mg PO DAILY Gastrointestinal 05/17/24 06/22/25 06/21/25 History
release Issue
loperamide 2 mg tablet 2 mg PO TIDPRN PRN loose stools 06/06/25 06/22/25 06/22/25 History
venetoclax 100 mg tablet 400 mg PO DAILY Antineoplastic 06/06/25 06/22/25 06/21/25 History
(Venclexta) Agent
acyclovir 200 mg capsule 400 mg (2 x 200 mg) PO BID 30 days 06/12/25 06/22/25 06/21/25 Rx
#120 caps
amiodarone 200 mg tablet (Pacerone) 200 mg PO BID #60 tabs 06/12/25 06/22/25 06/21/25 Rx
ciprofloxacin HCl 500 mg tablet 500 mg PO BID prophylaxis #60 tabs 06/12/25 06/22/25 06/21/25 Rx
metoprolol succinate 25 mg 25 mg PO DAILY #30 tabs 06/12/25 06/22/25 06/21/25 Rx
tablet,extended release 24 hr
Active Medications
Generic Name Dose Route Start Last Admin
Trade Name Freq PRN Reason Stop Dose Admin
Acetaminophen 650 mg 06/22/25 20:10 06/22/25 20:22
Acetaminophen 325 Mg Tablet PO 07/20/25 20:09 650 mg
Q4HPRN PRN Administration
headache,mild pain,fever>100.4
Acyclovir Sodium 400 mg 06/22/25 20:00 06/23/25 08:22
Acyclovir Sodium 200 Mg Capsule PO 07/02/25 19:59 400 mg
BID JINA Administration
Amiodarone HCl 200 mg 06/22/25 20:00 06/23/25 08:22
Amiodarone 200 Mg Tablet PO 07/20/25 19:59 200 mg
BID JINA Administration
Ciprofloxacin 500 mg 06/22/25 20:00 06/23/25 08:21
Ciprofloxacin 500 Mg Tablet PO 500 mg
BID JINA Administration
Glimepiride 2 mg 06/23/25 08:00 06/23/25 08:22
Glimepiride 2 Mg Tablet PO 07/21/25 07:59 2 mg
DAILY JINA Administration
Heparin Sodium (Porcine) 500 unit 06/22/25 19:30
Heparin Flush Pf (100 Unit/Ml) 5 Ml Syringe IV 07/20/25 19:29
PER PROTOCOL JINA
Loperamide HCl 2 mg 06/22/25 14:58
Loperamide 2 Mg Capsule PO 07/20/25 14:57
TIDPRN PRN
loose stools
Metoprolol Succinate 25 mg 06/23/25 08:00 06/23/25 08:22
Metoprolol 25 Mg Extended Release Tablet PO 07/21/25 07:59 25 mg
DAILY JINA Administration
Venetoclax [ 400 mg 06/23/25 08:00
Venclexta] 100 Mg PO 07/21/25 07:59
Tablet - 400 Mg Po DAILY JINA
Daily
Pantoprazole Sodium 40 mg 06/23/25 08:00 06/23/25 08:21
Pantoprazole 40 Mg Delayed Release Tablet PO 07/21/25 07:59 40 mg
DAILY JINA Administration
Potassium Citrate 10 meq 06/22/25 20:00 06/23/25 08:22
Potassium Citrate 10 Meq Tablet PO 07/20/25 19:59 10 meq
BID JINA Administration
Review of Systems
-
All Other Systems: Not reviewed unless documented
Physical Exam
-
General: Well Developed, Well Nourished, No Apparent Distress and Conversant
HEENT: Negative Jaundice
Psych: Agitated
Labs
Lab Results
WBC 0.1 10^3/uL (4.8-10.8) L* 06/23/25 04:27
RBC 2.64 10^6/uL (4.70-6.10) L 06/23/25 04:27
Hgb 7.6 g/dL (13.0-18.0) L D 06/23/25 04:27
Hct 21.5 % (39.0-52.0) L 06/23/25 04:27
MCV 81.4 fL (80.0-94.0) 06/23/25 04:27
MCH 28.8 pg (27.0-31.0) 06/23/25 04:27
MCHC 35.3 g/dL (33.0-37.0) 06/23/25 04:27
RDW 13.4 % (11.5-14.5) 06/23/25 04:27
Plt Count 14 10^3/uL (130-400) L* 06/23/25 04:27
MPV 10.8 fL (7.4-10.4) H 06/23/25 04:27
Abs Immat Gran (auto) 0.0 10^3/uL (0-0.05) 06/23/25 04:27
Absolute Neuts (auto) 0.0 10^3/uL (1.4-6.5) L* 06/23/25 04:27
Absolute Lymphs (auto) 0.1 10^3/uL (1.2-3.4) L 06/23/25 04:27
Absolute Monos (auto) 0.0 10^3/uL (0.1-0.6) L 06/23/25 04:27
Absolute Eos (auto) 0.0 10^3/uL (0-0.7) 06/23/25 04:27
Absolute Basos (auto) 0.0 10^3/uL (0-0.2) 06/23/25 04:27
Immature Gran % 0.0 % (0-0.5) 06/23/25 04:27
Neutrophils % 16.7 % (42.2-75.2) L 06/23/25 04:27
Lymphocytes % 75.0 % (20.5-51.1) H 06/23/25 04:27
Monocytes % 8.3 % (1.7-9.3) 06/23/25 04:27
Eosinophils % 0.0 % (0-6) 06/23/25 04:27
Basophils % 0.0 % (0-2) 06/23/25 04:27
Creatinine 0.9 mg/dL (0.7-1.3) 06/23/25 04:27
Vital Signs
Vital Signs
Temp Pulse Resp BP Pulse Ox
99.3 F 75 17 132/56 96
06/23/25 08:14 06/23/25 08:14 06/23/25 08:14 06/23/25 08:14 06/23/25 08:14
--- NOTE | 2025-06-23 11:43 | W.CON.PAL ---
Consultation
-
Date/Time Consultation Requested: 06/22/25
Date/Time Consultation Performed: 06/23/25
Requesting Provider: Dr Driver
Performing Provider: Dr Metcalf
Reason for Consult: Goals of Care Discussion
Primary Diagnosis: AML
Consult Requested By: Patient's Physician
Reason for Admission
Illness Course/HPI
Pt is a 79 YO M with hx of atypical CML diagnosed in 2021 but recently transformed to AML who was admitted yesterday on account of severe weakness and pancytopenia, Pt was initially treated with Vidaza then Dacogen and glitertinib added 2022 on
account of FL3+ mutation. Pt however has had repeated symptomatic cytopenias since commencing this new chemo.
Palliative care was consulted to help with goals of care discussion as Pt had voiced out during admission that he wanted Quality of life and not Quantity.
Pt was seen in his hospital room, he shared that he has had progressive weakness, easy fatiguability and poor energy since he was started on his most recent chemo and he believes that he is being rushed by oncology into aggressive chemotheraphy. I
asked about his understanding of where is hematological malignancy is at now and he shared that sandor was told that it had progressed necessitating the change in chemo, he however thinks he has not had opportunity to hear what the benefits/potential
side effects of the different chemo options are so that he can make informed choice, I shared with him that he always has a choice in his care, he stated that he understands that the new chemo has potential for cytopenias but he wanted oncology to
explain to him if it could ' be baby steps instead of giant strides with giving the chemo' as he is unable to tolerate the regimen as it is now. I shared that there is continued possibility of cytopenias with symptomatic anemia and wekness with
continued theraphy and asked what he was hoping would be tolerable for him, to which he shared that the QOL he had with the Vidaza is what he was hoping for, he wants to be able to ambulate without help, not get winded easily with less than strenous
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 He shared that he had
set up appointment with another make up operator for tomorrow( he wasnt sure of name but said Dr Ramos sounded familiar when I suggested that name) and he wanted to find out from that Dr if the only option he had was this chemo that made him sick, I
asked what his choice of treatment would be if told this was the only option or similar side-effects and he would like to defer that answer till hematology/oncology tells him that is only option, I shared that some people would focus on comfort and
not fight the cancer if QOL mattered more to them like his situation and he said that sounded like an option he would take. I asked about what he thought about the possibility of being transfusion dependent even with any treatment proposed to him
and he stated that as long as he was able to be able to get around and not severely tired he did not mind having to get repeated transfusions. Pt throughout discussion appeared to think he was not giving option of determining pace at which his
cancer treatment was given and feels like he needed to speak to a second opinion oncologist to further delienate his goals, he asked that i drop the palliative care out-outpatient package and he would go through it woith his .
Functional Status
Pt shares he has really deconditioned, he lives in a 1 [address] house with 3 steps to the laundry and has a one floor set up but has had increasing difficulty with even just 3 steps to laundry, he lives with his and is now spending most day in
bed due to weakness.
Goals of Care Discussion
-
Individuals Present for Discussion & Relationship to Patient:
Pt and pallitaive care
Patient able to participate in discussion at time of visit: Yes
Patient's Information Preferences: Fully Involved/Able to Participate
Patient Goals
Pt shares is goal at this time is treatment focused but he will continue chemo treatment only if he can get the QOL he had with his previous chemo which was that he was at least able to ambulate with at most a walker, get to enjoy driving and family
time, he does not want aggressive chemo that would make him very tired, he is willing to get transfusions as long as he can get to do things he enjoys doing but does not want a life of transfusion room to bed to transfusion room, he is hoping he can
get answers from oncology as to whether he can get a less aggressive chemotheraphy but would take longer time to complete course as against this present chemo which he believes is rushed. He is therefore waiting for second opinion from another
oncologist to know if he wants to continue chemo or just focus on comfort directed measures.
Pain & Symptom Assessment
Patient Symptoms
Patient Symptoms: Insomnia and Fatigue
[place] Symptom Scale 0=none, 10=worst
Pain: 0
Tired: 10
Nausea: 0
Appetite: 0
Shortness of Breath: 0
Wellbein (unhappy on account of his QOL)
Objective Data
-
Objective Data:
Vital Signs
Temp Pulse Resp BP Pulse Ox
99.3 F 75 17 132/56 96
06/23/25 08:14 06/23/25 08:14 06/23/25 08:14 06/23/25 08:14 06/23/25 08:14
Laboratory Results
06/23/25 04:27
06/23/25 04:27
PT 17.8 Sec (11.4-14.6) H 06/22/25 09:55
INR 1.45 06/22/25 09:55
APTT 104.8 Sec (23.4-35.0) H 06/22/25 09:55
Total Protein 5.8 g/dl (6.3-8.2) L 06/22/25 09:55
Albumin 3.3 g/dl (3.5-5.0) L 06/22/25 09:55
Palliative Performance Scale
Palliative Performance Scale:
PPS Level Ambulation Activity & Evidence of Disease Self Care Intake Conscious Level
100% Full Normal Activity & Work; Full Intake Full
No Evidence of Disease
90% Full Normal Activity & Work; Full Normal Full
Some Evidence of Disease
80% Full Normal Activity with Effort Full Normal or Full
Some Evidence of Disease Reduced
70% Reduced Unable Normal Job/Work Full Normal or Full
Significant Disease Reduced
60% Reduced Unable Hobby/Housework Occasional Normal or Full or Confusion
Significant Disease Assistance Reduced
50% Mainly Sit/Lie Unable to do Any Work Considerable Normal or Full or Confusion
Extensive Disease Assistance Req'd Reduced
40% Mainly in Bed Unable to do Most Activity Mainly Assistance Normal or Full or Drowsy;
Extensive Disease Reduced +/- Confusion
30% Totally Bed Unable to do Any Activity Total Care Normal or Full or Drowsy;
Bound Extensive Disease Reduced +/- Confusion
20% Totally Bed Bound Unable to do Any Activity Total Care Minimal to Full or Drowsy;
Extensive Disease Sips +/- Confusion
10% Totally Bed Bound Unable to do Any Activity Total Care Mouth Care Drowsy or Coma;
Extensive Disease Only +/- Confusion
0%
PPS Score Level:
Palliative Performance Score Response
Palliative Performance Score Response: 50%
Physical Exam
-
General: Well Developed, Conversant and Other (Mildly dehydrated)
HEENT: Normocephalic
Respiratory: Clear to Auscultation
Cardiac: Regular Rhythm and S1/S2
Peripheral Vascular: No Edema
GI: Soft and Nontender
Skin: Warm and Dry
Neuro: Awake, Alert and AO x 3
Psych: Calm and Other
speech is without confusion, able to maintain eye contact, not agitated or anxious, mood and affect appear congruent
Assessment / Plan
-
Assessment/Plan:
Pt is a 79 YO M with hx of atypical CML diagnosed in 2021 but recently transformed to AML who was admitted yesterday on account of severe weakness and pancytopenia, who palliative medicine was consulted to help with goals of care discussion.
Pt would like to have a second opinion from hem/onc to determine if he wants to continue with chemo, he shares his QOL has been severely affected with this new chemo and thinks he has not been able to understand if he has other options, he is hoping
to get clarity for this when he gets a second opinion with Dr Ramos tomorrow, when asked what would fuad decision to transition to more comfort based treatment and stop chemotheraphy patient shares this would depend on what oncology shares would be
the possible trajectory with any chemo recommended, for now this burden of treatment is not the quality of life he is hoping for and if that is the only option then he is willing to have more discussion regarding focusing on comfort. I explained
what palliative care services are and he collected the palliative care packet and would go through with his . He is however clear he does not want CPR, he would like to have trial of intubation, would like sent to ICU if he has an acute
condition, unstable and requiring more supervision/intervention, use antibiotics to treat infections.
Care Reviewed
Data Reviewed
Medical Tests: I reviewed
[2025-06-23 12:18] VITALS: BP 133/54; PULSE 85
--- NOTE | 2025-06-23 13:05 | W.PN.HOSP.TC ---
Addendum entered and electronically signed by Villa Chan MD 06/24/25 16:25:
[id number]
Original Note:
Today's Communication/Plan
-
f/u labs closely with transfusions as needed
F/u Onc for further discussions
Assessment / Plan
Assessment / Plan
Physical Exam
General: Well Developed, Well Nourished, No Apparent Distress, Comfortable, Conversant and Obese
HEENT: NormoCephalic, PERRLA, Nose Appears Normal and Ears Appear Normal
Respiratory: Clear and Non Labored Respirations; No Wheezes, Rales or Rhonchi
Cardiac: Regular Rhythm and Peripheral Edema; No Murmur, Rub or Gallop
GI: Soft, Non Tender, Non Distended and Normal Bowel Sounds
Musculoskeletal: No Clubbing and No Cyanosis
Skin: Warm, IV/Catheter Site and Other (pale)
Neuro: Awake and AO x 3
Psych: Calm and Intact Judgment/Insight
#generalized weakness 2/2 infectious process vs. chemo regimen vs. symptomatic anemia
#AML
#CML
#Pancytopenia
#Anemia, 2/2 to chemotherapy
-Responded well to 1u pRBC
-Wants to f/u with Onc outpt tomorrow
Continue PPI
Sunday/ lab draws and /Sunday transfusions
-Appreciate Onc, Pall care, and Psych eval
-F/u labs closely; no objection for dc from onc
#hyponatremia
Na 130
appears to be baseline
- monitor BMP
-FWR
#atrial fibrillation
- continue amiodarone and metoprolol
#type 2 diabetes
- AccuCheck AC & HS
- SSI
- glipizide and metformin
#hypertension
#hyperlipidemia
Code status: DNR
DVT prophylaxis: SCDs
More than 30 minutes spent in discharge including
Final examination of the patient
Summarizing hospital stay
Instructions for continuing care to all relevant caregivers
Preparation of discharge records, prescriptions, and referral forms
Total time spent (in minutes): 37
Anticipated Discharge: Today
Subjective/Interval History
-
Date of Service: June 23, 2025
No acute events overnight, desires to go home and follow-up with oncology tomorrow. Ambulated well with PT
Objective Data
-
Labs:
Laboratory Results
06/23/25
04:27
WBC 0.1 L*
Hgb 7.6 L D
Hct 21.5 L
Plt Count 14 L*
Sodium 129 L
Potassium 4.3
Chloride 98
Carbon Dioxide 28
BUN 15
Creatinine 0.9
Glucose 184 H
Calcium 8.4
Vital Signs:
Vital Signs
Temp Pulse Resp BP Pulse Ox
99.3 F 75 17 132/56 96
06/23/25 08:14 06/23/25 08:14 06/23/25 08:14 06/23/25 08:14 06/23/25 08:14
I&O
06/22/25 06/23/25 06/24/25
06:59 06:59 06:59
Intake Total 1220 / 1220
Output Total 500 / 500
Balance 720 / 720
Review of Systems
-
History Source: Patient
All other systems: Not reviewed unless documented
Data Reviewed
-
Total Time Spent with Patient (in minutes): 42
Labs: Labs Reviewed by me
--- NOTE | 2025-06-23 13:09 | W.DS.TRANS ---
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
-
Discharge Instructions:
Discharge Diagnosis/Procedures pancytopenia
weakness
Ambulatory dysfunction
Diet Low Fat,Low Cholesterol,Restrict fluids to 48 oz
Activity As tolerated
Blood Work CBC and CMP in 2-3 days with PCP and/or
hematology
Instructions:
Stand-Alone Forms:
Changes to Home Medications: No
Discharge Medications:
DC Medications w/original date entered in [employer]
metformin 1,000 mg tablet,extended release 24hr (osmotic) 1,000 mg PO BID Diabetes 03/27/17
glimepiride 2 mg tablet 2 mg PO DAILY Diabetes 12/22/22
potassium citrate 10 mEq (1,080 mg) tablet,extended release 10 meq PO BID Electrolyte Repletion 10/18/23
omeprazole 20 mg capsule,delayed release 20 mg PO DAILY Gastrointestinal Issue 05/17/24
loperamide 2 mg tablet 2 mg PO TIDPRN PRN loose stools 06/06/25
venetoclax 100 mg tablet (Venclexta) 400 mg PO DAILY Antineoplastic Agent 06/06/25
acyclovir 200 mg capsule 400 mg (2 x 200 mg) PO BID 30 days #120 caps 06/12/25
amiodarone 200 mg tablet (Pacerone) 200 mg PO BID #60 tabs 06/12/25
ciprofloxacin HCl 500 mg tablet 500 mg PO BID prophylaxis #60 tabs 06/12/25
metoprolol succinate 25 mg tablet,extended release 24 hr 25 mg PO DAILY #30 tabs 06/12/25
Home Medication Changes
na
Pending Results: No
--- NOTE | 2025-06-23 13:59 | CM ---
patient seen at bedside
discharge today
IMM explained & signed. In chart
PT rec Home PT - discussed with patient & declined
PLAN: Home, no needs
to transport
[2025-06-23 14:34] VITALS: BP 117/48
--- NOTE | 2025-06-23 16:06 | CS.PSYCHR ---
Consult Summary - Psychiatry
-
pt seen by me today in consultation for suicidal statements
79 yo man admitted for weakness, malaise, inability to tolerate change in chemo regimen. Has had AML and CML with need for frequent transfusions for pancytopenia, last week changed to new onc regimen. 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 Feels his quality of life has deteriorated to the point of not being worth it. Mentioned this to team--psychiatry consulted.
States no prior psychiatric care. Not interested in talking with me if all I am going to do is try to talk him out of it. Assured that his life is his, that I will try to help with making it more bearable if I can--interview progressed.
Diagnosed with leukemia in 2021, has done tolerably well until past few months. Able to continue working, misses being able to landa due to placement of port (cannot fire gun due to recoil into shoulder.) Lives with , has contact with her
children (whom he raised and feels close to) as well as two of his own 6 children (acrimonious divorce led to partial estrangement.) Aside from cancer doing ok physically.
Born and raised in [place], poor family, older brothers and younger sister. Sister nearby, close. 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
Has been generally in charge of his life, is upset that now he is not. Has considered how he would like life to end, has considered driving car off bridge, has also considered using a bit too much morphine if on hospice. Has ruled out shooting self
'I have too much love for my guns, if that makes any sense.' Pt had made a flint lock rifle by hand.
On exam pt is reclining in bed, pleasant and interactive. States that he is looking forward to second opinion tomorrow 'a lot will depend on that.' Acknowledges thoughts of dying when life no longer worth living, not sure if he will just decline
further treatment or take active role in ending life. Aware that in many places physician assisted suicide is legal but not in [place] (it is in [place]) and that euthanasia would be available in [place] (if he were a citizen there) to someone in his
condition.
acknowledges depression 'but mainly angry' not sure about use of antidepressants. no signs of psychosis, no cognitive impairment.
I spoke with via telephone with pt's permission. Reviewed our interaction; she had heard about driving car off bridge, does not think he would do it, but aware that he is angry at his condition and may take action.
Impression: adjustment disorder with mixed features
Rec: pt not eligible for inpatient care due to severe neutropenia. He asked for my contact information, heard my recommendation about antidepressants.
== END 2025-06-23 15:03 | disposition home or self-care (01) | DRG 809 ==
LOC: 3 WEST ACU 13:19
PROVIDERS: Nurse Practitioner Family; ADMITTING PHYSICIAN Internal Medicine; CONSULT PHYSICIAN Psychiatry & Neurology Psychiatry; CONSULT PHYSICIAN Student in an Organized Health Care Education/Training Program; EMERGENCY PHYSICIAN Student in an Organized Health Care Education/Training Program; FAMILY PHYSICIAN Family Medicine; OTHER PHYSICIAN Internal Medicine Hematology & Oncology
DX: D61.818 Other pancytopenia (principal); C92.00 Acute myeloblastic leukemia, not having achieved remission; E87.1 Hypo-osmolality and hyponatremia; Z11.52 Encounter for screening for COVID-19; Z51.5 Encounter for palliative care; I48.91 Unspecified atrial fibrillation; E11.9 Type 2 diabetes mellitus without complications; I10 Essential (primary) hypertension; E78.5 Hyperlipidemia, unspecified; Z66 Do not resuscitate; F43.20 Adjustment disorder, unspecified; T45.1X5A Adverse effect of antineoplastic and immunosuppressive drugs, initial encounter; Z79.899 Other long term (current) drug therapy; Z87.891 Personal history of nicotine dependence
CPT/HCPCS: 80048; 80053; 83735; 85025; 85610; 85730; 86850; 86900; 86901; 86920; 87502; 87811; 93005; 97162; 99291; P9016